=== PATIENT | male | born 1950 | race African-American/Black ===

== ENCOUNTER 2016-12-04 09:21 | Inpatient (IN) ==
[~2016-12-04 09:21] MED LIST: GLYCOPYRROLATE 0.4 MG/2 ML VIAL ONE; LIDOCAINE 2% 5 ML VIAL ONE; PHENYLEPHRINE 1 MG/10 ML SYRINGE IV ONE; PROPOFOL 200 MG/20 ML VIAL IV ONE; ROCURONIUM 100 MG/10 ML VIAL IV ONE; SEVOFLURANE 1 UNIT/15 MINUTE INH ONE
[2016-12-04] MEDS ORDERED: HYDROmorphone 2 MG/1 ML VIAL IV PRN ×2 (10:00→16:56)
[2016-12-04] MEDS ORDERED: ONDANSETRON 4 MG/2 ML VIAL IV STA (10:00)
[2016-12-04] MEDS ORDERED: VANCOMYCIN INJ 1,000 MG in SODIUM CHLORIDE 0.9% 250 ML IV STA (10:01)
--- NOTE | 2016-12-04 10:08 | Emergency Department Note ---
Anjel Wilkes Manpreet, am scribing for, and in the presence of, Joseph Leonard MD 10: 05. Aisha Wilkes James D, MD, personally performed the services described in this documentation, ascribed by Juan Jose Hobbs in my presence, and it is both accurate and complete . Arrival - Arrival Chief Complaint: Abdominal / Flank Pain Stated Complaint: abd pain ED Nursing Triage Note: Patient complains of abdominal pain and diarrhea. States that it began on sunday but has worsened. Paitent dialyzes on ,,and . Last dialysis was on 29 Nov 2016 Mode of Arrival: Stretcher Limitations: No Limitations Source: Patient - History of Present Illness HPI Narrative: Pt is a 66 y/o male, with PMHx of HTN, CHF, CVA, ESRF, and who presents to the ED with CC of Abd pain with diarrhea that began 12/01/16 but has worsened since. Pt's dialyses appointments are on MWF and last dialysis was on November 29, 2016. Pt states his diarrhea that began on 11/29/16 but has had no BM's today. Pt c/o fever but no N/V. Dr. Terrance Archuleta is the pt's methods and procedures analyst. No other pains/ complaints reported to the ED. Onset (ago): hour(s) Consistency: constant Severity: moderate Allergies/Adverse Reactions: Allergies Allergy/AdvReac Type Severity Reaction Status Date / Time aspirin Allergy Gastrointestinal Verified 05/16/16 00:54 Upset penicillin G Allergy RASH Verified 05/16/16 00:54 Home Medications: Home Medications Medication Instructions Recorded Confirmed Type Atenolol 50 mg PO DAILY 05/16/16 12/04/16 History Cinacalcet [Sensipar] 30 mg PO DAILY 05/16/16 12/04/16 History Diltiazem Cd Cap [Cardizem CD] 360 mg PO DAILY 05/16/16 12/04/16 History Finasteride 5 mg PO DAILY 05/16/16 12/04/16 History HYDROcodone/ACETAMIN 7.5-325 1 tablet PO Q6H PRN 05/16/16 12/04/16 History [[place] 7.5-325] Insulin Detemir [Levemir] 20 units SUBCUT DAILY 05/16/16 12/04/16 History Lovastatin 20 mg PO DAILY 05/16/16 12/04/16 History Nitroglycerin 0.4 mg/Hr Patch 1 patch TRANSDERM DAILY 05/16/16 12/04/16 History [Nitro-Dur 0.4 mg/hr Patch] Omeprazole 20 mg PO DAILY 05/16/16 12/04/16 History Temazepam [Restoril] 30 mg PO BEDTIME 05/16/16 12/04/16 History clonazePAM TAB [KlonoPIN] 0.5 mg PO BEDTIME 05/16/16 12/04/16 History Albuterol/Ipratropium Neb [Duoneb] 3 ml RESP TX RT Q4H 05/25/16 12/04/16 Rx Bisacodyl Tab [Dulcolax Tab] 10 mg PO DAILY PRN #0 tablet 05/25/16 12/04/16 Rx Ciprofloxacin Inj [Cipro Inj] 200 mg IV Q24H 05/25/16 12/04/16 Rx Heparin Inj 2,000 unit IV .FOR DIALYSIS vial 05/25/16 12/04/16 Rx Heparin Inj 5,000 unit SUBCUT Q8H vial 05/25/16 12/04/16 Rx Insulin Regular [HumuLIN R] See Protocol SUBCUT ACHS unit 05/25/16 12/04/16 Rx Ondansetron Inj [Zofran Inj] 4 mg IV Q4H PRN #0 vial 05/25/16 12/04/16 Rx Vancomycin Inj 1,000 mg IV .Non dialysis days PRN 05/25/16 12/04/16 Rx #0 vial Vancomycin Inj 1,500 mg IV WITH DIALYSIS PRN #0 05/25/16 12/04/16 Rx vial Review of System - Review of System 12 point system: reviewed and no additional remarkable complaints except as stated - Review of System Constitutional: Present: chills, fever. Absent: diaphoresis Respiratory: Absent: cough, respiratory distress, wheezing Cardiovascular: Absent: chest pain Gastrointestinal: Present: abdominal pain, diarrhea. Absent: nausea, vomiting, hematemesis Genitourinary male: Absent: dysuria Musculoskeletal: Absent: back pain, neck pain Neurological: Absent: headache, weakness, numbness, paresthesias Medical,Surgical,& Family Hx - Medical History Cardio: History of: CHF, Hypertension Neurology: History of: Cerebrovascular Accident No history of: Seizures Endocrine: History of: Diabetes Mellitus (IDDM) Respiratory: History of: COPD Renal: History of: Dialysis (M/W/F via left femoral TDC), Renal Failure, Renal Problems - Surgical History Cardiac Surgeries: Sugical HX of: Internal Defibrillator Neurologic Surgeries: Patient denies: Neurologic Surgery - Social History Smoking Status: Current every day smoker Exam Vital Signs: Vital Signs Temperature 100.1 F H 12/04/16 09:20 Pulse Rate 63 12/04/16 09:20 Respiratory Rate 18 12/04/16 09:20 Blood Pressure 160/84 12/04/16 09:20 O2 Sat by Pulse Oximetry 88 L 12/04/16 09:20 GENERAL: This is a chronically and acutely ill appearing black male in no apparent distress. VITAL SIGNS: Reviewed HEENT: Head is atraumatic and normocephalic. Pupils are equal round react to light. Extraocular movements are intact. Oropharynx is benign with moist mucous membranes. NECK: Neck is soft and supple without tenderness. There are no masses. There is no lymphadenopathy. LUNGS: Lungs are clear to auscultation. Chest rises symmetrically. There is no chest wall tenderness. CV: Heart is regular rate and rhythm without murmurs rubs or gallops. ABDOMEN: Abdomen is soft, minimal generalized tenderness to palpation without rebound or guarding. There are no abdominal abnormal masses palpated. There is no organomegaly. Bowel sounds are present and active. SKIN: Skin is warm and dry. No rash. EXTREMITIES: Patient has full range of motion without tenderness. There is no pedal edema. NEUROLOGIC: Awake, alert, oriented. Cranial nerves II through XII are grossly intact. Motor is 5 over 5 in all extremities bilaterally. Course Course Narrative: Patient was given IV vancomycin in the emergency department. - Consultations Consultation #1: Discussed with hospitalist. Patient will be admitted to their service. Time: 12:58 Results - Labs CBC & BMP: 12/04/16 10:30 12/04/16 10:30 Lab Results: I have reviewed the patients labs - Diagnostic Findings Procedure: Abdominal x-ray: image reviewed by me, Chest x-ray: image reviewed by me, CT Abdomen and Pelvis: image reviewed by me (Left iliac vein surrounding soft tissue stranding. Multiple pelvic and periaortic lymph nodes.) Disposition Clinical Impression: Fever, Generalized abdominal pain, End stage renal disease on dialysis, Diabetes mellitus, Essential hypertension, Obstructive sleep apnea Case discussed with: patient Disposition: Still a Patient Condition: Stable
[2016-12-04] MEDS ORDERED: HEPARIN LOCK FLUSH 500 UNIT/5 ML SYRINGE IV ONE (10:28)
[2016-12-04 10:40] LABS: Basophils % 0.2 % (0.0-0.8); Hematocrit 31.3 VOL% (42.0-52.0); Hemoglobin 10.4 GM/DL (14.0-18.0); Immature Granulocytes % 1.2 %; Immature Granulocytes Absolute 0.24 #; Lymphocytes # 1.4 10*3/uL (1.4-4.0); Lymphocytes % 6.7 % (21.2-54.2); Mean Corpuscular HGB Conc 33.2 GM/DL (32-36); Mean Corpuscular Hemoglobin 28 PG (27-34); Mean Corpuscular Volume 84.1 FL (87-102); Mean Platelet Volume 10.1 FL (9.6-12.0); Monocytes # 2.4 10*3/uL (0.11-0.8); Monocytes % 11.4 % (1.7-12.7); Neutrophils # 16.6 10*3/uL (1.4-7.4); Neutrophils % 80.5 % (38.7-73.9); Platelet Count 279 T/CUMM (130-400); Red Blood Count 3.72 MC/CUMM (3.8-5.5); Red Cell Distribution Width 19.2 % (9.3-17.3); White Blood Count 20.6 T/CUMM (4-12)
[2016-12-04 11:02] LABS: Calcium 8.3 MG/DL (8.5-10.1); Osmolality,Calculated 292.7 MOS/KG (273-304); Potassium 3.8 MMOL/L (3.5-5.1); Total Protein 8.4 G/DL (6.4-8.3)
[2016-12-04 11:07] LABS: Giant Platelets Few; Hypochromasia 1+; Microcytosis Slight; Platelet Estimate Adequate
[2016-12-04] MEDS ORDERED: ONDANSETRON 4 MG/2 ML VIAL ONE (11:13)
[2016-12-04] MEDS ORDERED: VANCOMYCIN 1,000 MG VIAL ONE (11:13)
--- NOTE | 2016-12-04 11:33 | CT Report ---
CT abdomen pelvis Indication: Abdominal pain Comparison: 18 May 2016 Technique: Axial CT imaging of the abdomen and pelvis is performed with intravenous contrast. Contrast dose is 100 cc of Omnipaque 350. No oral contrast was used Findings: Cardiac and lung bases are within normal limits. CT abdomen: The liver spleen pancreas and adrenal glands are normal in size and enhancement. No evidence of focal lesion is demonstrated in these solid organs. Gallbladder appears contracted. Multiple nonenhancing cyst are present in both kidneys, the largest is 2.4 cm in size. Otherwise the kidneys normal in size and enhancement. No evidence of hydronephrosis or nephrolithiasis is seen. The bowel caliber is normal and no wall thickening or adjacent inflammatory change is seen. No evidence of free fluid or free air is present. A few enlarged lymph nodes are present in the para-aortic location, largest is estimated 1.6 cm. These are increased since previous study. There are enlarged lymph nodes in the nawaf hepatis, similar to previous exam. Mixed lytic and sclerotic densities are present in the lumbar spine similar to previous. The largest sclerotic focus is and L4 measures [address] pelvis: Left femoral vein catheter is present and appears within normal limits for positioning. There is stranding around the left iliac vein and left external iliac artery. There is increased soft tissue density in the left pelvic sidewall, increased from previous exam. The borders are indistinct secondary to some of the stranding in the area of the largest is estimated 3.5 cm. There is increased density surrounding the right common femoral artery and multiple clips are present. There is suggestion of a small amount of calcification in this area as well. Multiple lytic and sclerotic densities are present in the sacrum and pelvis similar to previous. The pelvic bowel appears within normal limits. Bladder wall appears slightly thickened but not as prominent as previous exam. The prostate gland is enlarged with calcification similar to previous.. Impression: Left femoral vein catheter present with stranding around the left iliac vein and left iliac artery, could indicate thrombophlebitis and/or previous hemorrhage. There is increased soft tissue density in the left pelvic sidewall likely a combination multiple lymph nodes. There is also increasing lymph nodes in the para-aortic area. This CT exam was performed using one or more the following dose reduction techniques: Automated exposure control, adjustment of the MA and/or KV according to patient size, or use of iterative reconstruction technique. PROCEDURE INTERPRETED AT [facility] DEPARTMENT OF RADIOLOGY Final Report Signed by: Dr. Steve Santoro
--- NOTE | 2016-12-04 12:47 | XRay Report ---
History: Abdominal pain Date: 12/04/2016 Study: Flat and erect abdomen Comparison exam: No previous abdominal x-ray currently available There is no evidence of pneumoperitoneum. The bowel gas pattern is nonobstructive without gross mass lesion. A left femoral dialysis access catheter is positioned with its tip over the inferior vena cava. No definite radiopaque calculi are seen. There is mild lumbar spondylosis. There is mild osteoarthritis of the hips with mild joint space narrowing and osteophyte formation. Pacemaker leads are noted in the partially visualized lower chest. Impression: No acute abdominal process. Left common femoral dialysis access catheter PROCEDURE INTERPRETED AT [facility] DEPARTMENT OF RADIOLOGY Final Report Signed by: Dr. Nirali Myers
--- NOTE | 2016-12-04 12:47 | XRay Report ---
XR chest 1V portable Indication: Abdominal pain Comparison: 29 May 2016 Findings: The heart and mediastinum are stable in size and configuration. Pacemaker device is unchanged in position. The pulmonary vascularity is normal in caliber. Linear densities are present in both lungs similar to previous exam. No other lung infiltrates, effusions, pneumothorax or other abnormality is demonstrated. Impression: No acute findings or significant change. PROCEDURE INTERPRETED AT [facility] DEPARTMENT OF RADIOLOGY Final Report Signed by: Dr. Steve Santoro
[2016-12-04 13:07] LABS: INR 1.1; PT Patient Result 11.5 SECS; Partial Thromboplastin Time 32.3 SECS (0-40)
[2016-12-04 13:41] LABS: Apearance,Urine CLOUDY (Clear); Bilirubin,Urine Negative (Negative); Blood, Urine Large mg/dL (Negative); Glucose,Urine (UA) Negative (Negative); Ketones,Urine Negative (Negative); Mucus,Urine Occasional /LPF (Occasional); Nitrite,Urine Negative (Negative); Protein,Urine 100 MG/DL; Squamous Epithelial Cell,Urine Occasional /HPF (0-10); Urine Color Yellow (Yellow); Urine Specific Gravity 1.012 (1.001-1.035); Urine Urobilinogen < 2.0 EU/DL (0.2-1.0); WBC,Urine 17 /HPF (0-6)
--- NOTE | 2016-12-04 14:07 | Hospitalist History & Physical ---
Addendum entered and electronically signed by Hawa Loo NP 12/04/16 14:32: PCP: Dr Duke (Roberts) Renal: Dr Archuleta Original Note: Assessment and Plan - Time spent with patient Time spent with patient: Greater than 30 minutes (1) Fever Status: Acute Assessment and plan: 12/04/16 Admit to Hospital Services consult renal (chronic kidney disease on dialysis) MWF - missed Sunday Blood cultures collected in the ED Vancomycin started in ED - will continue antibiotics PRN pain management PRN zofran sliding scale and diabetes monitoring HA1c in the a.m repeat a.m. labs Will discuss with Dr Nagy for further recommendations with care. Current Visit: Yes (2) End stage renal disease on dialysis Status: Acute Assessment and plan: MWF dialysis (missed Sunday) Current Visit: Yes (3) Generalized abdominal pain Status: Acute Current Visit: Yes (4) ESRD (end stage renal disease) on dialysis Problem details: HD tomorrow. UF to EDW as tolerated by hemodynamics. Status: Chronic Current Visit: No (5) Diabetes mellitus Status: Acute Current Visit: Yes History of Present Illness Chief complaint: abdominal pain, diarrhea and shortness of breath History of present illness: Mr. Mcadams is a 66 year old black male w/PMHx of hypertension, diabetes, GERD presented to the ED via EMS for further evaluation of worsening abdominal pain and diarrhea since Sunday with increasing shortness of breath x2 days. He has a left groin dialysis catheter without redness at site or drainage noted. He reports last dialysis was Sunday on the 29 of November and missed dialysis on Sunday. He reports some nausea without vomiting and fever without notable chills. He is sleepy upon exam but easily awakened and answered all questions appropriately. IN ED: Abd XR: nothing acute. left common femoral dialysis catheter. CXR: nothing acute. Abd CT: Left femoral vein catheter present with stranding around the left iliac vein and left iliac artery, could indicate thrombophlebitis and/or previous hemorrhage. There is increased soft tissue density in the left pelvic sidewall likely a combination multiple lymph nodes. There is also increasing lymph nodes in the para-aortic area. LABS SIgnificant: WBC 20.6, H&H 10.4 & 31.3, Na 131, Angion gap 18.8, BUN 96, Creatinine 13.40, Glucose 125, Calcium 8.3. Urinalysis: leukocytes small, WBC 17. LACTIC acid is pending results. Was given a dose of Vancomycin in ER. Hospital Services consulted for admittance and further evaluation. After discussion with Dr Leonard in the ED and Dr Nagy with Hospital Services, it was agreed to admit patient. Home medications will be reviewed and reconciliation to follow. Home Medications Medication Instructions Recorded Confirmed Type Atenolol 50 mg PO DAILY 05/16/16 12/04/16 History Cinacalcet [Sensipar] 30 mg PO DAILY 05/16/16 12/04/16 History Diltiazem Cd Cap [Cardizem CD] 360 mg PO DAILY 05/16/16 12/04/16 History Finasteride 5 mg PO DAILY 05/16/16 12/04/16 History HYDROcodone/ACETAMIN 7.5-325 1 tablet PO Q6H PRN 05/16/16 12/04/16 History [[place] 7.5-325] Insulin Detemir [Levemir] 20 units SUBCUT DAILY 05/16/16 12/04/16 History Lovastatin 20 mg PO DAILY 05/16/16 12/04/16 History Nitroglycerin 0.4 mg/Hr Patch 1 patch TRANSDERM DAILY 05/16/16 12/04/16 History [Nitro-Dur 0.4 mg/hr Patch] Omeprazole 20 mg PO DAILY 05/16/16 12/04/16 History Temazepam [Restoril] 30 mg PO BEDTIME 05/16/16 12/04/16 History clonazePAM TAB [KlonoPIN] 0.5 mg PO BEDTIME 05/16/16 12/04/16 History Albuterol/Ipratropium Neb [Duoneb] 3 ml RESP TX RT Q4H 05/25/16 12/04/16 Rx Bisacodyl Tab [Dulcolax Tab] 10 mg PO DAILY PRN #0 tablet 05/25/16 12/04/16 Rx Ciprofloxacin Inj [Cipro Inj] 200 mg IV Q24H 05/25/16 12/04/16 Rx Heparin Inj 2,000 unit IV .FOR DIALYSIS vial 05/25/16 12/04/16 Rx Heparin Inj 5,000 unit SUBCUT Q8H vial 05/25/16 12/04/16 Rx Insulin Regular [HumuLIN R] See Protocol SUBCUT ACHS unit 05/25/16 12/04/16 Rx Ondansetron Inj [Zofran Inj] 4 mg IV Q4H PRN #0 vial 05/25/16 12/04/16 Rx Vancomycin Inj 1,000 mg IV .Non dialysis days PRN 05/25/16 12/04/16 Rx #0 vial Vancomycin Inj 1,500 mg IV WITH DIALYSIS PRN #0 05/25/16 12/04/16 Rx vial Allergies Allergy/AdvReac Type Severity Reaction Status Date / Time aspirin Allergy Gastrointestinal Verified 05/16/16 00:54 Upset penicillin G Allergy RASH Verified 05/16/16 00:54 Medical,Surgical,& Family Hx - Medical History Cardio: History of: CHF, Hypertension Neurology: History of: Cerebrovascular Accident No history of: Seizures Endocrine: History of: Diabetes Mellitus (IDDM) Respiratory: History of: COPD Renal: History of: Dialysis (M/W/F via left femoral TDC), Renal Failure, Renal Problems - Surgical History Cardiac Surgeries: Sugical HX of: Internal Defibrillator Neurologic Surgeries: Patient denies: Neurologic Surgery - Social History Smoking Status: Current every day smoker (3-4 cigarettes per day) Frequency of Alcohol Use: None Type of Drug Use: None Marital Status: Lives With:: Spouse ( and daughter) Functional capacity: uses cane/walker 12 point system: reviewed and no additional remarkable complaints except as stated - Constitutional Constitutional: Present: fever(s). Absent: chills - Cardiovascular Cardiovascular: Present: dyspnea. Absent: chest pain at rest, chest pain with activity - Respiratory Respiratory: Present: dyspnea - Gastrointestinal Gastrointestinal: Present: abdominal pain, diarrhea, nausea. Absent: vomiting Exam - Constitutional Vitals: Period Temp Pulse Resp BP Sys/Jalloh Pulse Ox Last 24 Hr 100.1 F-100.1 F 63-63 18-18 160-160/84-84 88 General appearance: no acute distress, over weight - Head Head exam: Present: normal inspection - Eye Eye exam: Present: EOMI Pupils: Present: CAMRON - Neck Neck exam: Present: normal inspection - Respiratory Respiratory exam: Present: clear to auscultation bilaterally. Absent: wheezes - Cardiovascular Cardiovascular exam: Present: regular rate and rhythm - GI/Abdominal GI/Abdominal exam: Present: normal bowel sounds, tenderness (mildly generalized tenderness), soft. Absent: rebound - Extremities Exam Extremities exam: Present: normal inspection, full ROM, edema (trace) - Neurological Exam Neurological exam: Present: alert, oriented X3 - Psychiatric Psychiatric exam: Present: normal affect, normal mood. Absent: agitated, anxious - Skin Skin exam: Present: normal color, warm, dry Results - Labs CBC & BMP: 12/04/16 10:30 12/04/16 10:30 Lab Results: I have reviewed the past 24 hour labs - Diagnostic Findings Procedure: Abdominal x-ray: report reviewed by me (no acute abdominal process), Chest x-ray: report reviewed by me (nothing acute), CT Abdomen and Pelvis: report reviewed by me, pending (left femoral vein catheter present with stranding around the left iliac vein and left iliac artery, could indicate thrombophlebitis and/or previous hemorrage. There is increased soft tissue density in the left pelvic sidewall likely a combination multiple lymph nodes.)
[2016-12-04] MEDS ORDERED: GLUCAGON 1 MG VIAL IM PRN (14:28)
[2016-12-04] MEDS ORDERED: DEXTROSE 50% 25 GM/50 ML SYRINGE IV PRN (14:28)
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
--- NOTE | 2016-12-04 16:10 | Dialysis Note ---
Dialysis Note - Dialysis Note Ms. Torri Mcadams is seen on hemodialysis. His tolerating it well with good catheter flow. Blood pressure stable.
[2016-12-04 16:45] LABS: Basophils # 0.1 10*3/uL (0.0-0.2); Basophils % 0.4 % (0.0-0.8); Eosinophils % 0.1 % (0.00-10.9); Hematocrit 31.4 VOL% (42.0-52.0); Hemoglobin 10.3 GM/DL (14.0-18.0); Lymphocytes # 1.2 10*3/uL (1.4-4.0); Lymphocytes % 6.1 % (21.2-54.2); Mean Corpuscular HGB Conc 32.8 GM/DL (32-36); Mean Corpuscular Hemoglobin 28 PG (27-34); Mean Corpuscular Volume 83.7 FL (87-102); Mean Platelet Volume 10.1 FL (9.6-12.0); Monocytes # 1.6 10*3/uL (0.11-0.8); Monocytes % 8.3 % (1.7-12.7); Neutrophils # 16.3 10*3/uL (1.4-7.4); Neutrophils % 84.1 % (38.7-73.9); Platelet Count 298 T/CUMM (130-400); Red Blood Count 3.75 MC/CUMM (3.8-5.5); Red Cell Distribution Width 19.1 % (9.3-17.3); White Blood Count 19.4 T/CUMM (4-12)
[2016-12-04] MEDS ORDERED: GENTAMICIN INJ 80 MG in PREMIX 1 EACH IV ONE (19:30)
[2016-12-04] MEDS ORDERED: VANCOMYCIN INJ 1,500 MG in SODIUM CHLORIDE 0.9% 500 ML IV ONE (20:00)
[2016-12-04] MEDS: ALBUTEROL/IPRATROPIUM 3 ML NEB RESP TX SCH (20:30)
[2016-12-04] MEDS: INSULIN LISPRO 100 UNIT/ML SUBCUT SCH ×2 (20:55→22:44)
[2016-12-04] MEDS: clonazePAM 0.5 MG TABLET PO SCH (21:18)
[2016-12-04] MEDS: HEPARIN 5,000 UNIT/1 ML VIAL SUBCUT SCH (22:44)
[2016-12-04] MEDS: ATENOLOL 50 MG TABLET PO SCH (22:45)
[2016-12-04] MEDS: CINACALCET 30 MG TABLET PO SCH (22:45)
[2016-12-05] MEDS: ALBUTEROL/IPRATROPIUM 3 ML NEB RESP TX SCH ×7 (00:11→23:10)
[2016-12-05] MEDS: HEPARIN 5,000 UNIT/1 ML VIAL SUBCUT SCH ×3 (01:36→16:58)
[2016-12-05 07:26] LABS: Basophils # 0.1 10*3/uL (0.0-0.2); Basophils % 0.5 % (0.0-0.8); Eosinophils # 0.1 10*3/uL (0.0-0.87); Eosinophils % 0.2 % (0.00-10.9); Hematocrit 30.5 VOL% (42.0-52.0); Hemoglobin 9.9 GM/DL (14.0-18.0); Immature Granulocytes % 1.2 %; Immature Granulocytes Absolute 0.24 #; Lymphocytes # 1.4 10*3/uL (1.4-4.0); Lymphocytes % 6.6 % (21.2-54.2); Mean Corpuscular HGB Conc 32.5 GM/DL (32-36); Mean Corpuscular Hemoglobin 28 PG (27-34); Mean Corpuscular Volume 84.7 FL (87-102); Mean Platelet Volume 10.8 FL (9.6-12.0); Monocytes # 2.9 10*3/uL (0.11-0.8); Monocytes % 13.8 % (1.7-12.7); Neutrophils # 16.2 10*3/uL (1.4-7.4); Neutrophils % 77.7 % (38.7-73.9); Platelet Count 283 T/CUMM (130-400); Red Cell Distribution Width 19.3 % (9.3-17.3); White Blood Count 20.8 T/CUMM (4-12)
--- NOTE | 2016-12-05 07:26 | Nephrology Progress Note ---
Nephrology - PN: Subj Interval history: Patient is feeling better this morning. He denies shortness of breath. Review of systems GI he denies nausea or vomiting, -the patient had dialysis yesterday Physical exam general the patient chronically ill-appearing, he has no pitting edema, his right groin catheter has some mild tenderness to palpation but no surrounding inflammation Assessment/plan 1. End-stage renal disease-patient dialyzed yesterday 2. Febrile illness-this patient has a elevated white count, on CT exam of his abdomen he had note of some changes around his left groin catheter and today he is complaining of pain shooting through this area, I will talk to surgery about removing the catheter today we can plan on putting a catheter in in a few days for dialysis 3. Gastroenteritis-patient started having some nausea and vomiting a few days ago I am not sure if this was related to his possible catheter infection or gastroenteritis independent of this. 4. Hypertension is controlled 5. Diabetes mellitus this is controlled Exam (PN)-Nephrology - Vital Signs Vital signs: Period Temp Pulse Resp BP Sys/Jalloh Pulse Ox Last 24 Hr 97.8 F-100.1 F 61-84 16-20 123-160/68-106 88-100 - Lab 12/04/16 16:31 12/04/16 10:30 Most recent lab results Calcium 8.3 MG/DL (8.5-10.1) L 12/04/16 10:30 Assessment and Plan (1) End stage renal disease on dialysis Status: Acute Assessment and plan: We will plan on dialyzing the patient this Sunday Current Visit: Yes (2) Nausea and vomiting Status: Acute Assessment and plan: This patient may have some gastro-enteritis related to food poisoning or this could be a reaction to a more substantial infection possibly related to the left groin catheter. Current Visit: Yes (3) Diabetes mellitus Status: Acute Current Visit: Yes (4) Essential hypertension Status: Acute Current Visit: Yes (5) Fever Status: Acute Assessment and plan: Patient has elevated white blood cell count, he is having some low-grade fever and a CT scan of his abdomen shows some changes associated with his left groin catheter, we may need to remove this catheter after his dialysis tomorrow and replace it with another catheter a few days later. I will ask general surgery to see him in consultation. I agree with IV antibiotics. Current Visit: Yes (6) Generalized abdominal pain Status: Acute Current Visit: Yes (7) Leukocytosis Status: Acute Current Visit: No
[2016-12-05 07:58] LABS: Calcium 8.3 MG/DL (8.5-10.1); Osmolality,Calculated 284.4 MOS/KG (273-304)
[2016-12-05 08:02] LABS: Band Neutrophils 1 % (0-10); Giant Platelets Few; Hypochromasia 1+; Lymphocytes 13 % (20-55); Microcytosis Slight; Platelet Estimate Adequate; Segmented Neutrophils 77 % (50-85); Total Cells Counted 100
[2016-12-05] MEDS ORDERED: LIDOCAINE 1% 20 ML VIAL MISC INJ ONE (08:37)
--- NOTE | 2016-12-05 09:11 | XRay Report ---
XR chest 1V portable Indication: Shortness of breath Comparison: 04 December 2016 Findings: The heart and mediastinum are stable in size and configuration. Pacemaker device is unchanged in position. The pulmonary vascularity is increased with bilateral increased interstitial lung density. No other lung infiltrates, effusions, pneumothorax or other abnormality is demonstrated. Impression: Findings suggest cardiac decompensation. PROCEDURE INTERPRETED AT [facility] DEPARTMENT OF RADIOLOGY Final Report Signed by: Dr. Steve Santoro
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
--- NOTE | 2016-12-05 09:18 | Operative Note ---
Date of procedure: 12/05/16 Pre-op diagnosis: Infected hemodialysis catheter suspicion Post-op diagnosis: same Procedure: Pre-operative diagnosis Infected hemodialysis catheter, suspected Post-operative diagnosis same Procedures Performed Removal of tunneled hemodialysis catheter Findings Complete catheter removal with purulent drainage from the catheter tract Complications None apparent Indications Possible infected hemodialysis catheter Description of procedure The patient was placed in the supine position in his hospital bed and the catheter and left groin and thigh was prepped with Betadine. Timeout was called. Local anesthetic was administered around the catheter and an elliptical skin incision was made with a scalpel. The catheter was freed up the subcutaneous tissues and the cuff was . There is good incorporation with no clot but there was purulent drainage around the catheter when it was removed. The catheter was completely removed intact and the catheter site was left open to heal by secondary intention. The pressure was held over the neck site until bleeding stopped. The patient was left in his hospital bed. Catheter tip was sent for culture Postoperative plan Patient will need a new dialysis catheter later this week Anesthesia: local Surgeon / Physician: Marcell Car Estimated blood loss: minimal Specimens: other (catheter tip) Condition: stable Disposition: no change Results - Labs CBC & BMP: 12/05/16 05:02 12/05/16 05:02 Discharge Plan - Discharge Medications No Action Omeprazole 20 mg PO DAILY Nitroglycerin 0.4 mg/Hr Patch [Nitro-Dur 0.4 mg/hr Patch] 1 patch TRANSDERM DAILY Cinacalcet [Sensipar] 30 mg PO DAILY Insulin Detemir [Levemir] 20 units SUBCUT DAILY Finasteride 5 mg PO DAILY clonazePAM TAB [KlonoPIN] 0.5 mg PO BEDTIME Atenolol 50 mg PO DAILY Bisacodyl Tab [Dulcolax Tab] 10 mg PO DAILY PRN #0 tablet PRN Reason: Constipation Ondansetron Inj [Zofran Inj] 4 mg IV Q4H PRN #0 vial PRN Reason: Nausea HYDROcodone/ACETAMIN 7.5-325 [[place] 7.5-325] 1 tablet PO Q6H PRN PRN Reason: Pain Temazepam [Restoril] 30 mg PO BEDTIME Lovastatin 20 mg PO DAILY Diltiazem Cd Cap [Cardizem CD] 360 mg PO DAILY Albuterol/Ipratropium Neb [Duoneb] 3 ml RESP TX RT Q4H Ciprofloxacin Inj [Cipro Inj] 200 mg IV Q24H Heparin Inj 5,000 unit SUBCUT Q8H vial Heparin Inj 2,000 unit IV .FOR DIALYSIS vial Insulin Regular [HumuLIN R] See Protocol SUBCUT ACHS unit Vancomycin Inj 1,000 mg IV .Non dialysis days PRN #0 vial PRN Reason: Level <15 on non dialysis days Vancomycin Inj 1,500 mg IV WITH DIALYSIS PRN #0 vial PRN Reason: Level <20 on dialysis days - Follow Up or Referral - Forms/Instructions
[2016-12-05] MEDS: FINASTERIDE 5 MG TABLET PO SCH (09:40)
[2016-12-05] MEDS: INSULIN LISPRO 100 UNIT/ML SUBCUT SCH ×4 (09:40→21:04)
[2016-12-05] MEDS: ATENOLOL 50 MG TABLET PO SCH (09:40)
[2016-12-05] MEDS: CINACALCET 30 MG TABLET PO SCH (09:40)
[2016-12-05] MEDS: DILTIAZEM CD 180 MG CAPSULE PO SCH (09:40)
[2016-12-05] MEDS: NITROGLYCERIN 0.4 MG/HR PATCH TRANSDERM SCH (09:40)
[2016-12-05] MEDS: ACETAMINOPHEN 325 MG TABLET PO PRN ×2 (11:46→22:15)
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
--- NOTE | 2016-12-05 16:54 | Hospitalist Progress Note ---
Hospitalist: Subjective Interval history: Patient is feeling better this morning. Left groin infected hemodialysis catheter was removed 12/05. Blood cultures are growing staph Exam - Constitutional Vitals: Period Temp Pulse Resp BP Sys/Jalloh Pulse Ox Last 24 Hr 97.8 F-102.7 F 60-88 16-20 123-155/55-90 83-100 Exam: General: [No Acute Distress] HEENT: [Normocephalic, atraumatic, Extra ocular movements intact] Neck: [Supple, No JVD] Chest: [Clear to auscultation B/L] CV: [S1 + S2 audible without murmur, gallop or rub] Abd: [soft, NT, Non-distended, BS +] Ext: [No edema] Skin: [Right inguinal area small wound] Rheumatologic: [No Joint deformities] Neurologic: [Awake and alert] Results - Labs CBC & BMP: 12/05/16 05:02 12/05/16 05:02 - Impressions Assessment and Plan: MRSA sepsis Status: Acute Assessment and plan: Source appears to be the left femoral hemodialysis catheter which has been removed 12/05. He would need IV Vanco for several weeks. Appreciate ID following. Current Visit: Yes Chronic right groin wound Status: Acute Assessment and plan: Patient had an infected graft removed by Dr. Hoover several months ago. Patient will continue to follow with Dr. Hoover as an outpatient Current Visit: Yes Nausea and vomiting Status: Acute Assessment and plan: This seems to be related to his current infection, this has improved Current Visit: Yes ESRD on HD Status: Chronic current Visit: Yes Essential hypertension Status: Acute Current Visit: Yes Diabetes mellitus Status: Acute Current Visit: Yes
--- NOTE | 2016-12-05 16:54 | ECHO Report ---
Malena Mcadams 12/05/2016 Exam Date: 15:12 Referring Physician: jimenez Moody Technologist: WENDY ROWE Age: 66 Ht (in): 68 Wt (lb): 225 MExam Location: [facility] Gender: Echo [id number]: Essential (primary) hypertension, EnIndications: stage renal disease, Sepsis, Fever, MRSA, DM, RT. groin wound S/P catheter removal BP: 135 / 73 HR: 60 SinusRhythm: FairTechnical Quality: IMPRESSIONS Normal left ventricular cavity size. Moderate to severe left ventricular hypertrophy. Left ventricular ejection fraction is estimated at 60 %. The right ventricle is normal in size and function. The right atrium is normal in size. The left atrium is mildly enlarged. Morphologically normal mitral valve. No mitral valve stenosis. Trace mitral valve regurgitation. Morphologically normal aortic valve without significant sclerosis or stenosis. There is no aortic regurgitation. Morphologically normal tricuspid valve. [id number] tricuspid valve regurgitation. Tricuspid regurgitation velocities suggest a PAP of 65 mmHg. Morphologically normal pulmonic valve without significant stenosis. There is no pulmonic regurgitation. Normal pericardium without effusion. Normal ascending aorta dimension. MEASUREMENTS (Male / Female) Normal Values 2D ECHO LV Diastolic Diameter PLAX 4.4 cm 4.2 - 5.9 / 3.9 - 5.3 cm LV Systolic Diameter PLAX 2.8 cm LV Fractional Shortening PLAX 37.3 % IVS Diastolic Thickness 2.1 cm 0.6 - 1.0 / 0.6 - 0.9 cm LVPW Diastolic Thickness 2.0 cm 0.6 - 1.0 / 0.6 - 0.9 cm RV Internal Dim ED PLAX 3.8 cm Aortic Root Diameter 3.8 cm LA Systolic Diameter LX 4.2 cm 3.0 - 4.0 / 2.7 - 3.8 cm DOPPLER TR Peak Velocity 372.0 cm/s TR Peak Gradient 55.4 mmHg FINDINGS Left Ventricle Normal left ventricular cavity size. Moderate to severe left ventricular hypertrophy. Left ventricular ejection fraction is estimated at 60 %. Right Ventricle The right ventricle is normal in size and function. Right Atrium The right atrium is normal in size. Left Atrium The left atrium is mildly enlarged. Mitral Valve Morphologically normal mitral valve. No mitral valve stenosis. Trace mitral valve regurgitation. Aortic Valve Morphologically normal aortic valve without significant sclerosis or stenosis. There is no aortic regurgitation. Tricuspid Valve Morphologically normal tricuspid valve. Chpe-[id number] tricuspid valve regurgitation. Tricuspid regurgitation velocities suggest a PAP of 65 mmHg. Pulmonic Valve Morphologically normal pulmonic valve without significant stenosis. There is no pulmonic regurgitation. Pericardium Normal pericardium without effusion. Aorta Normal ascending aorta dimension. Ranjit Peterson MD (Electronically Signed) 05 December 2016 Final Date: 16:52
[2016-12-05] MEDS: clonazePAM 0.5 MG TABLET PO SCH (21:04)
[2016-12-06] MEDS: HEPARIN 5,000 UNIT/1 ML VIAL SUBCUT SCH ×3 (01:50→17:08)
[2016-12-06] MEDS: ALBUTEROL/IPRATROPIUM 3 ML NEB RESP TX SCH ×6 (03:10→23:55)
--- NOTE | 2016-12-06 07:44 | XRay Report ---
Portable chest Exam date: 12/06/2016 4:00 AM Indication: Shortness of breath, cough Comparison: Previous day at 0522 hours Findings: Cardiomediastinal contours are stable with no change in pacemaker placement. Mild central interstitial prominence again noted with focal thickening along the right minor fissure. No acute osseous abnormalities. Visualized upper abdomen demonstrates no acute pathology. Impression: No change in the central interstitial opacities, atelectasis versus mild edema PROCEDURE INTERPRETED AT [facility] DEPARTMENT OF RADIOLOGY Final Report Signed by: Mulugeta Cornejo
--- NOTE | 2016-12-06 07:51 | Nephrology Progress Note ---
Nephrology - PN: Subj Interval history: Patient continues to complain of some left leg pain. Review of systems: General -the patient feels better overall, he denies fever chills Physical exam general the patient in no acute distress Assessment/plan 1. Bacteremia-this patient had multiple blood cultures growing out MRSA will continue vancomycin 2. End-stage renal disease-we will remove this patient's catheter will plan on replacing it or Sunday and resuming dialysis 3. Hypertension we will continue his present antihypertensives 4. Diabetes mellitus this is controlled Exam (PN)-Nephrology - Vital Signs Vital signs: Period Temp Pulse Resp BP Sys/Jalloh Pulse Ox Last 24 Hr 97.2 F-102.7 F 59-88 16-20 95-155/48-90 83-98 - Lab 12/05/16 05:02 12/05/16 05:02 Most recent lab results Calcium 8.3 MG/DL (8.5-10.1) L 12/05/16 05:02 Assessment and Plan (1) End stage renal disease on dialysis Status: Acute Assessment and plan: We will plan on dialyzing the patient this Sunday Current Visit: Yes (2) Nausea and vomiting Status: Acute Assessment and plan: This patient may have some gastro-enteritis related to food poisoning or this could be a reaction to a more substantial infection possibly related to the left groin catheter. Current Visit: Yes (3) Diabetes mellitus Status: Acute Current Visit: Yes (4) Essential hypertension Status: Acute Current Visit: Yes (5) Fever Status: Acute Assessment and plan: Patient has elevated white blood cell count, he is having some low-grade fever and a CT scan of his abdomen shows some changes associated with his left groin catheter, we may need to remove this catheter after his dialysis tomorrow and replace it with another catheter a few days later. I will ask general surgery to see him in consultation. I agree with IV antibiotics. Current Visit: Yes (6) Generalized abdominal pain Status: Acute Current Visit: Yes (7) Leukocytosis Status: Acute Current Visit: No
[2016-12-06] MEDS: INSULIN LISPRO 100 UNIT/ML SUBCUT SCH ×4 (07:57→20:33)
[2016-12-06] MEDS: CINACALCET 30 MG TABLET PO SCH (09:07)
[2016-12-06] MEDS: DILTIAZEM CD 180 MG CAPSULE PO SCH (09:08)
[2016-12-06] MEDS: FINASTERIDE 5 MG TABLET PO SCH (09:09)
[2016-12-06] MEDS: ATENOLOL 50 MG TABLET PO SCH (09:09)
[2016-12-06] MEDS: NITROGLYCERIN 0.4 MG/HR PATCH TRANSDERM SCH (10:07)
--- NOTE | 2016-12-06 12:51 | Infectious Disease Progress ---
Assessment and Plan (1) MRSA (methicillin resistant Staphylococcus aureus) septicemia Status: Acute Assessment and plan: Source of the septicemia is the left femoral dialysis catheter which had emilie pus around it. It seems there is likely endovascular infection associated with this dialysis catheter [based on CT findings] which has now been removed. TTE negative for endocarditis but patient's body habitus precludes high-quality study. Recommend agents: 1. Consult cardiology for JG 2. Continue with vancomycin with goal trough level of 20-25. Discussed dosing with clinical pharmacy. 3. Repeat blood cultures today 4. Follow-up on cultures from right groin wound Current Visit: Yes (2) Diabetes mellitus Status: Acute Current Visit: Yes (3) End stage renal disease on dialysis Status: Acute Current Visit: Yes (4) Essential hypertension Status: Acute Current Visit: Yes (5) Fever Status: Acute Assessment and plan: This is due to the MRSA septicemia from infected dialysis catheter. Vancomycin therapy as noted above. Current Visit: Yes (6) Hemodialysis catheter infection Status: Acute Assessment and plan: Due to MRSA, now removed. 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 Recommendations: Follow-up results of culture to see if there is something else other than MRSA Current Visit: Yes Infectious Disease - PN: Subj Interval history: Patient feeling relatively okay. No fever since about midday yesterday. Left groin dialysis catheter is out. Less drainage from right groin wound today. Patient feels a bit tired but no other complaints, no nausea vomiting or diarrhea. No cough or shortness of breath. Denies back pain or any other acute pains. Infectious Disease Exam (PN) - Constitutional Vitals: Temp Pulse Resp BP Pulse Ox 98.2 F 63 18 154/79 89 L 12/06/16 12:00 12/06/16 12:00 12/06/16 12:00 12/06/16 12:00 12/06/16 12:00 General appearance: no acute distress, over weight Exam: General appearance: no acute distress - Eye Eye exam: Present: EOMI. no icterus Pupils: Present: CAMRON - ENT ENT exam: no oral exudates - Respiratory Respiratory exam: vesicular BS, no crepitations or wheezes - Cardiovascular Cardiovascular exam: regular rate and rhythm, no murmurs - GI/Abdominal GI/Abdominal exam: normal bowel sounds, soft, non-tender, no organomegaly or mass - Extremities Exam Extremities exam: no edema, serous fluid oozing from left groin wound with hemodialysis catheter was removed; right groin wound not draining today - Skin Skin exam: no rash Results - Labs CBC & BMP: 12/05/16 05:02 12/05/16 05:02 Lab Results: I have reviewed the past 24 hour labs (Catheter tip culture positive for gram-positive cocci)
--- NOTE | 2016-12-06 14:10 | Ultrasound Report ---
US venous mapping LT Indication: Evaluation for potential dialysis access options. Patient has a infected right groin at site of previous AV graft, and 2 days ago had a left groin dialysis catheter removed after approximately 5 months for line infection. Line holiday planned. Previous attempts at establishing catheter access in the jugular region unsuccessful at outside facility. Superficial ultrasound neck and left groin: Cornejo scale and color Doppler ultrasound evaluation of the venous structures on both sides of the neck and the left groin were performed by me personally. 2 captured images were obtained. The right internal jugular vein is occluded and the left internal jugular vein is 80% occluded with thrombosis. The right subclavian vein and the left subclavian veins appear widely patent, but could not be followed distally into the mediastinum due to overlying structures. Evaluation over the left groin shows occlusion of the left common femoral vein with small superficial collaterals present. No abnormal fluid collections are seen although mild left groin lymphadenopathy is present. Impression: Possible dialysis access options exist via the subclavian veins on both sides, as well as possibly the left internal jugular vein. No dialysis access options the left groin. Plan preprocedure venogram of the left jugular system and both subclavian veins after a "line holiday" to resolve positive blood cultures. At the time of the venogram, plan on attempting dialysis catheter placement via upper chest, and if not possible, translumbar access. PROCEDURE INTERPRETED AT [facility] DEPARTMENT OF RADIOLOGY Final Report Signed by: Evaristo Lockwood M.D.
[2016-12-06] MEDS ORDERED: VANCOMYCIN INJ 750 MG in SODIUM CHLORIDE 0.9% 250 ML IV ONE (15:00)
--- NOTE | 2016-12-06 17:10 | Hospitalist Progress Note ---
Hospitalist: Subjective Interval history: Patient feeling better today. He was admitted with MRSA sepsis. Exam - Constitutional Vitals: Period Temp Pulse Resp BP Sys/Jalloh Pulse Ox Last 24 Hr 97.1 F-98.7 F 59-85 16-20 95-154/48-79 86-98 Exam: General: [No Acute Distress] HEENT: [Normocephalic, atraumatic, Extra ocular movements intact] Neck: [Supple, No JVD] Chest: [Clear to auscultation B/L] CV: [S1 + S2 audible without murmur, gallop or rub] Abd: [soft, NT, Non-distended, BS +] Ext: [No edema] Skin: [Right inguinal area small wound] Rheumatologic: [No Joint deformities] Neurologic: [Awake and alert] Results - Labs CBC & BMP: 12/05/16 05:02 12/05/16 05:02 - Impressions Assessment and Plan: MRSA sepsis Status: Acute Assessment and plan: Source appears to be the left femoral hemodialysis catheter which has been removed 12/05. He would need IV Vanco for several weeks. 2D echo was unremarkable .appreciate ID following. Current Visit: Yes Chronic right groin wound Status: Acute Assessment and plan: Patient had an infected graft removed by Dr. Hoover several months ago. Patient will continue to follow with Dr. Hoover as an outpatient Current Visit: Yes Nausea and vomiting Status: Acute Assessment and plan: This seems to be related to his current infection, this has improved Current Visit: Yes ESRD on HD Status: Chronic current Visit: Yes Essential hypertension Status: Acute Current Visit: Yes Diabetes mellitus Status: Acute Current Visit: Yes
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
[2016-12-06] MEDS ORDERED: VANCOMYCIN INJ 750 MG in SODIUM CHLORIDE 0.9% 250 ML IV PRN (19:00)
[2016-12-06] MEDS: clonazePAM 0.5 MG TABLET PO SCH (20:30)
[2016-12-07] MEDS: HEPARIN 5,000 UNIT/1 ML VIAL SUBCUT SCH ×3 (01:42→17:06)
[2016-12-07] MEDS: ALBUTEROL/IPRATROPIUM 3 ML NEB RESP TX SCH ×5 (03:16→19:02)
--- NOTE | 2016-12-07 07:54 | History and Physical Update ---
Sedation H&P Update - History and Physical H&P was reviewed, the patient examined and there: are no changes in the patients condition since last H&P was completed. - Dictation Physical: refer to H&P completed by admitting physician - Physical Exam Mental Status: alert and oriented Heart: regular rate and rhythm Lung: clear to auscultation Abdomen: within normal limits Vitals: within normal limits - Sedation Plan for Sedation: MAC Patient Consent: Procedure disscussed with patient and patinet has consented., Risks and benefits were discussed with patient,including infection,, bleeding, injury to surrounding structures, seizure, temporary nerve, Patient understands and accepts potential risks/benefits and agrees to ASA Class: IV Airway Assessment: Class III: Soft palate, base of uvula visible
--- NOTE | 2016-12-07 08:46 | EKG Report ---
Stationary ECG Study [facility] Test Date: 12/07/2016 7:45:54 AM Pat Name: KATYA UNDERWOOD Department: Room: 543 Gender: M Doll Repairer: GABRIELLA : 1950 Requested by: Prabhjot Teixeira Order Number: [id number] Reading MD: TALHA FUENTES Intervals [place] Rate: 60 P: -77 ND: 181 QRS: 126 QRSD: 185 T: 32 QT: 502 QTc: 502 Interpretive Statements ELECTRONIC ATRIAL PACEMAKER ELECTRONIC VENTRICULAR PACEMAKER ABNORMAL RHYTHM ECG Electronically Signed On 12-07-16 10:39:49 CDT by TALHA FUENTES [email or web address]
[2016-12-07] MEDS: INSULIN LISPRO 100 UNIT/ML SUBCUT SCH ×4 (09:10→21:33)
--- NOTE | 2016-12-07 09:16 | XRay Report ---
XR chest 1V portable Indication: Shortness of breath Comparison: 06 December 2016 Findings: The heart and mediastinum are stable in size and configuration. Pacemaker device is unchanged in position. The pulmonary vascularity is normal in caliber. Small amounts of bilateral pulmonary density are present, similar to previous exam. No other lung infiltrates, effusions, pneumothorax or other abnormality is demonstrated. Impression: No significant changes. PROCEDURE INTERPRETED AT [facility] DEPARTMENT OF RADIOLOGY Final Report Signed by: Dr. Steve Santoro
--- NOTE | 2016-12-07 09:46 | Cardiology Progress Note ---
Assessment and Plan (1) Sepsis Problem details: GNRs -> proteus, most likely source of his sepsis. Improved on cipro. Status: Acute Assessment and plan: 66-year-old black male, MRSA sepsis, infected hemodialysis line, which was removed, groin abscess, dual-chamber pacemaker, end-stage renal disease on hemodialysis, hypertension, insulin-dependent diabetes mellitus, hyperlipidemia. 12/07: JG - no IE -JG confirmed no endocardial vegetations. High-risk infection for intracardiac involvement. Pacemaker interrogation confirmed that he is pacemaker dependent, has atrial standstill, with 2-1 AV block with A pacing, underlying ventricular escape 40 bpm. Recommend to continue high intensity antibiotic therapy, per ID, he remains at risk for endocarditis. -Multivessel DVT. This was even limiting placement of another dialysis line. Consider starting full anticoagulation. I will defer this to the renal team. -I will sign off, please call with further questions Current Visit: No (2) Pacemaker Status: Acute Current Visit: Yes (3) ESRD (end stage renal disease) on dialysis Problem details: HD tomorrow. UF to EDW as tolerated by hemodynamics. Status: Chronic Current Visit: No (4) Hemodialysis catheter infection Status: Acute Current Visit: No Qualifiers: Encounter type: initial encounter Qualified Code(s): T82.7XXA - Infection and inflammatory reaction due to other cardiac and vascular devices, implants and grafts, initial encounter (5) Anemia in chronic kidney disease Status: Chronic Current Visit: No (6) Insulin dependent diabetes mellitus Status: Chronic Current Visit: No (7) Hemodialysis catheter infection Status: Acute Current Visit: No (8) MRSA (methicillin resistant Staphylococcus aureus) septicemia Status: Acute Current Visit: Yes Cardiology - PN: Subj Interval history: JG showed no endocarditis. He woke up uneventfully. Exam (Progress Note) - Constitutional Vitals: Period Temp Pulse Resp BP Sys/Jalloh Pulse Ox Last 24 Hr 97.7 F-100.0 F 59-82 18-20 104-154/56-79 86-100 General appearance: no acute distress, morbidly obese - Head Head exam: Present: normal inspection. Absent: contusion - Eye Eye exam: Absent: conjunctival injection, scleral icterus Pupils: Absent: dilated - ENT ENT exam: Present: normal external ear exam - Neck Neck exam: Present: normal inspection - Respiratory Respiratory exam: Present: decreased breath sounds. Absent: chest wall tenderness - Cardiovascular Cardiovascular exam: Present: regular rate and rhythm, systolic murmur. Absent : JVD - GI/Abdominal GI/Abdominal exam: Present: normal bowel sounds. Absent: distended - Extremities Exam Extremities exam: Present: normal inspection, edema (1+) - Neurological Exam Neurological exam: Present: alert, oriented X3 - Psychiatric Psychiatric exam: Present: normal affect, normal mood - Skin Skin exam: Present: normal color, warm. Absent: cyanosis Result/EKG - Labs CBC & BMP: 12/05/16 05:02 12/05/16 05:02 Lab Results: I have reviewed the past 24 hour labs Labs: Laboratory Results - last 24 hr 12/06/16 12/06/16 12/06/16 12:31 13:09 16:01 POC Glucose 173 H 116 H Random Vancomycin 18.2 12/06/16 12/07/16 12/07/16 19:27 06:48 08:27 POC Glucose 101 138 H 138 H Random Vancomycin
--- NOTE | 2016-12-07 09:54 | Anesthesia Post-Op ---
Anesthesia Post OP - Post Ansesthetic Evaluation Patient seen in post op: Yes Resp: within normal limits CV: within normal limits Mental: within normal limits Temp: within normal limits [id number]: within normal limits Nausea and Vomiting: within normal limits Pain: within normal limits
[2016-12-07] MEDS ORDERED: PROPOFOL 200 MG/20 ML VIAL IV ONE (09:55)
[2016-12-07] MEDS ORDERED: ETOMIDATE 20 MG/10 ML VIAL IV ONE (09:55)
--- NOTE | 2016-12-07 10:04 | ECHO Report ---
Malena Mcadams Exam Date: 12/07/2016 08:20 Referring Physician: Technologist: jimenez MoodyS, RVT Age: 66 Ht (in): 68 Wt (lb): 231 Gender: M Exam Location: [facility] Echo Pre-op Dx: Bacteremia, MRSA, Evaluate for endocarditis Post-op Dx: BP: 135 / 63 HR: 65 Rhythm: Sinus Technical Quality: Specimens Taken Devices Implanted Medications Complications Estimated Blood Loss Proc. Components IMPRESSIONS The left ventricle is normal in size, with mild concentric hypertrophy. Normal systolic function. Mild left atrial enlargement. Mild mitral valve insufficiency. Moderate tricuspid valve insufficiency. Moderate pulmonary hypertension. No intracardiac vegetations or thrombi. Dual-chamber pacemaker in place. MEASUREMENTS (Male / Female) Normal Values FINDINGS Left Ventricle The left ventricle is normal in size, with mild concentric hypertrophy. Normal systolic function. Right Ventricle The right ventricle is normal in size, with normal systolic function. Pacemaker wire in the right ventricle, without vegetations. Right Atrium The right atrium is normal in size, pacemaker when the right atrium, without vegetations. Left Atrium The left atrium is mildly dilated. LA Appendage The left atrial appendage is normal in size, no thrombi. IA Septum The interatrial septum is normal. Mitral Valve The mitral valve is structurally normal, mild insufficiency, no vegetations. Aortic Valve Aortic valve is structurally normal, no stenosis or insufficiency. Tricuspid Valve Tricuspid valve is structurally normal, moderate insufficiency, no stenosis. No vegetations. Estimated pulmonary artery systolic pressure 59 mmHg plus right atrial pressure. Pulmonic Valve Structurally normal pulmonic valve, no stenosis, trace insufficiency Pericardium No pericardial effusion. Aorta The descending aorta is of normal size. Prabhjot Teixeira (Electronically Signed) Final Date: 07 December 2016 10:03
[2016-12-07] MEDS ORDERED: DEXTROSE 50% 25 GM/50 ML VIAL IV PRN (10:10)
[2016-12-07] MEDS ORDERED: GLUCAGON 1 MG VIAL IM PRN (10:10)
[2016-12-07] MEDS: DILTIAZEM CD 180 MG CAPSULE PO SCH (10:31)
[2016-12-07] MEDS: ATENOLOL 50 MG TABLET PO SCH (10:32)
[2016-12-07] MEDS: CINACALCET 30 MG TABLET PO SCH (10:32)
[2016-12-07] MEDS: FINASTERIDE 5 MG TABLET PO SCH (10:32)
[2016-12-07] MEDS: NITROGLYCERIN 0.4 MG/HR PATCH TRANSDERM SCH (10:32)
--- NOTE | 2016-12-07 15:13 | Event Note ---
I have had a lengthy family discussion with the patient and his family in the room regarding the patient's situation. This patient has limited dialysis access options and Dr. Lockwood is concerned that the next dialysis catheter will have to be a translumbar although he is willing to try some deep neck options first. The patient's blood cultures unfortunately are still positive even after removal of his infected hemodialysis catheter on Sunday of this week. Because of his persistent infection and there is concern that his right groin purulent drainage from his AV graft site that had been previously partially removed, the best plan of care seems to be to take the patient to the operating room to remove the remainder of the infected material in his right groin. This could turn into a major vascular operation with repair or bypass extra-anatomic of his infected vessels there. The patient is not hyperkalemic on yesterday's labs and does not appear volume overloaded. He has not dialyzed since earlier this week. However, given the situation with infected tissue remaining in his right groin it seems like the best thing to do was to get this infection taken care of and continue a line holiday as long as possible hopefully until Sunday and clear his bacteremia prior to placing a new dialysis catheter. This has been discussed extensively with the family as well as with Dr. Lockwood and the anesthesiologist who will be covering the case tomorrow. On a more concerning note, the patient has limited dialysis access options and he is running out of place a split dialysis catheters. I have discussed the possibility with the patient and his family that the patient may end up needing emergent dialysis and we are unable to place a catheter which could result in his . Questions were answered in the room and the patient and his family understand the plan of care which is outlined above. The patient will be scheduled for exploration of his right groin with removal of infected tissue and repair or bypass of his femoral vessels. Dr. Barajas will be the primary surgeon on this operation and he is also discussed this with the patient. Dr. Hoover has also expressed an interest to be involved in the case tomorrow. I have been organizing the patient's care but I will not ultimately be involved in his surgery tomorrow. This is also been discussed with the family.
[2016-12-07] MEDS ORDERED: SODIUM POLYSTYRENE SULFATE 15 GM/60 ML BOTTLE PO SCH (15:30)
--- NOTE | 2016-12-07 15:35 | Nephrology Progress Note ---
Nephrology - PN: Subj Interval history: The patient denies shortness of breath. Review of systems GI denies nausea or vomiting, musculoskeletal he states his pain in his groin is better but states she still has acute episode of pain that may last about an hour or so. Patient has been receiving multiple narcotics including Dilaudid. Physical exam general the patient chronically ill-appearing, he seems to fall asleep readily when not stimulated Assessment/plan 1. End-stage renal disease-this patient's last dialysis was this past Sunday, prior to that it was about 5 days previous. 2. Bacteremia-patient has MRSA growing from his blood he has what seems like an infected right groin graft which is going to be explored and removed tomorrow , is reviewed by Dr. Car's note hopefully we can continue with a line holiday until Sunday. 3. Altered mental status-this patient is drowsy today he just received some IV Dilaudid he is also been getting [place], I am going to stop his Dilaudid for now. 4. Hypertension 5. Diabetes mellitus 6. Left internal jugular vein thrombosis-this patient's been started on heparin for this. Exam (PN)-Nephrology - Vital Signs Vital signs: Period Temp Pulse Resp BP Sys/Jalloh Pulse Ox Last 24 Hr 97.5 F-100.0 F 59-81 18-20 104-132/56-68 88-100 - Lab 12/05/16 05:02 12/05/16 05:02 Most recent lab results Calcium 8.3 MG/DL (8.5-10.1) L 12/05/16 05:02 Assessment and Plan (1) End stage renal disease on dialysis Status: Acute Assessment and plan: We will plan on dialyzing the patient this Sunday Current Visit: Yes (2) Nausea and vomiting Status: Acute Assessment and plan: This patient may have some gastro-enteritis related to food poisoning or this could be a reaction to a more substantial infection possibly related to the left groin catheter. Current Visit: Yes (3) Diabetes mellitus Status: Acute Current Visit: Yes (4) Essential hypertension Status: Acute Current Visit: Yes (5) Fever Status: Acute Assessment and plan: Patient has elevated white blood cell count, he is having some low-grade fever and a CT scan of his abdomen shows some changes associated with his left groin catheter, we may need to remove this catheter after his dialysis tomorrow and replace it with another catheter a few days later. I will ask general surgery to see him in consultation. I agree with IV antibiotics. Current Visit: Yes (6) Generalized abdominal pain Status: Acute Current Visit: Yes (7) Leukocytosis Status: Acute Current Visit: No
--- NOTE | 2016-12-07 16:40 | Infectious Disease Progress ---
Assessment and Plan (1) MRSA (methicillin resistant Staphylococcus aureus) septicemia Status: Acute Assessment and plan: One source of the septicemia is the left femoral dialysis catheter which had emilie pus around it. It seems there is likely endovascular infection associated with this dialysis catheter [based on CT findings] which has now been removed. 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 Fortunately JG done today was negative for endocarditis. Recommend agents: 1. Continue with vancomycin with goal trough level of 20-25. Discussed dosing with clinical pharmacist today. 2. I am told that the patient is going for removal of remaining graft material in right groin tomorrow. We will plan to repeat blood cultures after the surgery, so on Sunday. 3. Follow-up on finalized cultures from right groin wound This is a very complexed infection in patient with multiple comorbid. I discussed the situation with his and daughter. Case also discussed with Dr. Car and Dr. Willis. Patient is going to have dialysis access placed next week Sunday by interventional radiology. Prognosis guarded. Current Visit: Yes (2) Diabetes mellitus Status: Acute Current Visit: Yes (3) End stage renal disease on dialysis Status: Acute Current Visit: Yes (4) Essential hypertension Status: Acute Current Visit: Yes (5) Fever Status: Acute Assessment and plan: This is due to the MRSA septicemia from infected dialysis catheter. Vancomycin therapy as noted above. Current Visit: Yes (6) Hemodialysis catheter infection Status: Acute Assessment and plan: Due to MRSA, now removed. 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 Recommendations: Follow-up results of culture to see if there is something else other than MRSA. Surgery pending for tomorrow to remove the remaining graft material. Current Visit: Yes Infectious Disease - PN: Subj Interval history: Patient doing fair, is a bit drowsy today I think he got narcotics and also may have gotten some sedation for his JG today. T-max 100. He was too drowsy to contribute to history today. Infectious Disease Exam (PN) - Constitutional Vitals: Temp Pulse Resp BP Pulse Ox 98.3 F 60 18 126/64 92 L 12/07/16 15:50 12/07/16 15:50 12/07/16 15:50 12/07/16 15:50 12/07/16 15:50 General appearance: no acute distress, morbidly obese Exam: General appearance: no acute distress just very drowsy though arousable - Eye Eye exam: Present: EOMI. no icterus Pupils: Present: CAMRON - ENT ENT exam: no oral exudates - Respiratory Respiratory exam: vesicular BS, no crepitations or wheezes - Cardiovascular Cardiovascular exam: regular rate and rhythm, no murmurs - GI/Abdominal GI/Abdominal exam: normal bowel sounds, soft, non-tender, no organomegaly or mass - Extremities Exam Extremities exam: no edema, serous fluid oozing from left groin wound where hemodialysis catheter was removed; right groin wound is once again draining purulent material today - Skin Skin exam: no rash Results - Labs CBC & BMP: 12/05/16 05:02 12/07/16 15:03 Lab Results: I have reviewed the past 24 hour labs (Repeat blood cultures from yesterday positive 2 for gram-positive cocci)
[2016-12-07] MEDS ORDERED: SODIUM POLYSTYRENE SULFATE 15 GM/60 ML BOTTLE PO PRN (16:54)
--- NOTE | 2016-12-07 16:54 | Hospitalist Progress Note ---
Hospitalist: Subjective Interval history: 6-year-old male with MRSA bacteremia and ESRD. Exam - Constitutional Vitals: Period Temp Pulse Resp BP Sys/Jalloh Pulse Ox Last 24 Hr 97.5 F-100.0 F 59-81 18-20 104-127/56-68 90-100 Exam: General: [No Acute Distress] HEENT: [Normocephalic, atraumatic, Extra ocular movements intact] Neck: [Supple, No JVD] Chest: [Clear to auscultation B/L] CV: [S1 + S2 audible without murmur, gallop or rub] Abd: [soft, NT, Non-distended, BS +] Ext: [No edema] Skin: [Right inguinal area small wound] Rheumatologic: [No Joint deformities] Neurologic: [Awake and alert] Results - Labs CBC & BMP: 12/05/16 05:02 12/07/16 15:03 - Impressions Assessment and Plan: MRSA sepsis Status: Acute Assessment and plan: Source appears to be the left femoral hemodialysis catheter which has been removed 12/05. He would need IV Vanco for several weeks. 2D echo was unremarkable .appreciate ID following. Current Visit: Yes DVT involving right and left IJV, left common femoral vein Status: Acute vs chronic Assessment and plan: Is difficult to get on the timing whether acute subacute on chronic DVT. Currently he is on subcu heparin. Ultimately he likely would need to go on IV heparin and possibly Coumadin, which can be done after his HD access has been placed Current Visit: Yes Chronic right groin wound Status: Acute Assessment and plan: Patient had an infected graft removed by Dr. Hoover several months ago. Patient will continue to follow with Dr. Hoover as an outpatient Current Visit: Yes Nausea and vomiting/Abd pain Status: Acute Assessment and plan: This seems to be related to his current infection, this has improved Current Visit: Yes ESRD on HD Status: Chronic current Visit: Yes Essential hypertension Status: Acute Current Visit: Yes Diabetes mellitus Status: Acute Current Visit: Yes
[2016-12-07] MEDS: clonazePAM 0.5 MG TABLET PO SCH (21:32)
[2016-12-08] MEDS: ALBUTEROL/IPRATROPIUM 3 ML NEB RESP TX SCH ×7 (00:04→23:09)
[2016-12-08 05:28] LABS: Basophils # 0.1 10*3/uL (0.0-0.2); Basophils % 0.4 % (0.0-0.8); Eosinophils # 0.1 10*3/uL (0.0-0.87); Eosinophils % 0.3 % (0.00-10.9); Hematocrit 27.5 VOL% (42.0-52.0); Hemoglobin 8.9 GM/DL (14.0-18.0); Immature Granulocytes % 5.6 %; Immature Granulocytes Absolute 0.91 #; Lymphocytes % 6.1 % (21.2-54.2); Mean Corpuscular HGB Conc 32.4 GM/DL (32-36); Mean Corpuscular Hemoglobin 27 PG (27-34); Mean Corpuscular Volume 83.1 FL (87-102); Mean Platelet Volume 10.5 FL (9.6-12.0); Monocytes # 2.4 10*3/uL (0.11-0.8); Monocytes % 14.6 % (1.7-12.7); Neutrophils # 11.9 10*3/uL (1.4-7.4); Platelet Count 373 T/CUMM (130-400); Red Blood Count 3.31 MC/CUMM (3.8-5.5); White Blood Count 16.3 T/CUMM (4-12)
[2016-12-08 05:56] LABS: Calcium 8.4 MG/DL (8.5-10.1); Osmolality,Calculated 296.7 MOS/KG (273-304); Potassium 4.9 MMOL/L (3.5-5.1)
[2016-12-08 05:59] LABS: Calcium 8.4 MG/DL (8.5-10.1); Magnesium 2.6 MG/DL (1.8-2.4); Osmolality,Calculated 299.5 MOS/KG (273-304); Potassium 4.9 MMOL/L (3.5-5.1)
[2016-12-08 06:02] LABS: Hypochromasia 1+; Lymphocytes 4 % (20-55); Metamyelocytes 1 %; Microcytosis 1+; Segmented Neutrophils 86 % (50-85); Total Cells Counted 100
[2016-12-08 06:03] LABS: Platelet Estimate Normal
[2016-12-08] MEDS: INSULIN LISPRO 100 UNIT/ML SUBCUT SCH ×4 (08:28→21:30)
[2016-12-08] MEDS: DILTIAZEM CD 180 MG CAPSULE PO SCH (08:28)
[2016-12-08] MEDS: FINASTERIDE 5 MG TABLET PO SCH (08:29)
[2016-12-08] MEDS: NITROGLYCERIN 0.4 MG/HR PATCH TRANSDERM SCH (08:29)
[2016-12-08] MEDS: ATENOLOL 50 MG TABLET PO SCH (08:29)
[2016-12-08] MEDS: CINACALCET 30 MG TABLET PO SCH (08:29)
[2016-12-08] MEDS ORDERED: HEPARIN 5,000 UNIT/1 ML VIAL ONE ×2 (08:43→11:38)
[2016-12-08] MEDS ORDERED: THROMBIN TOPICAL (RECOMBINANT) 5,000 UNIT VIAL TOP ONE (08:44)
[2016-12-08] MEDS ORDERED: VANCOMYCIN 500 MG VIAL ONE ×2 (08:44→11:03)
[2016-12-08] MEDS ORDERED: BUPIVACAINE 0.5% 50 ML VIAL ONE ×2 (08:44→11:38)
[2016-12-08] MEDS ORDERED: SUGAMMADEX 200 MG/2 ML VIAL IV ONE (11:15)
--- NOTE | 2016-12-08 11:35 | Operative Note ---
Date of procedure: 12/08/16 Procedure: Dr. Barajas operative report Kiok Mcadams. 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 Postoperative diagnosis: Same Procedure: Excision of old chronically infected [place] graft material of the right superficial femoral artery and vein Indications for the procedure: The amish Mcadams is a 66-year-old man who has developed a chronically infected right groin with recurring infections of MRSA involving dialysis catheters had an old AV graft in the right thigh that that was removed leaving small cuffs at the superficial femoral artery and vein due to the continued infection we have recommended removal of the old AV graft material he will require placement of a new dialysis catheter after the bacteremia is cleared I discussed the procedure with its risks and complications which she seems to have some reasonable understanding of and agrees Description of the procedure: After the induction of general endotracheal anesthesia the patient's lower abdomen and right leg are prepped with ChloraPrep and draped in standard fashion I left the right foot draped in order to harvest saphenous vein if needed he had a draining sinus in the right inguinal incision made an elliptical incision about the chronically infected portion and initially worked upward to just at the inguinal ligament worked under the inguinal ligament and was able to control the external iliac artery which had a bifurcation with what is probably a large circumflex femoral artery these were controlled with a maxi vessel loop I then continued the dissection around the sinus excising the chronically infected skin and subcutaneous tissue and lymph nodes from this area there was gross purulence I worked my way down to a portion of the graft which on the lateral aspect appeared to be anastomosed to the artery I began a very tedious dissection trying to get around the artery proximal and distal to this site as I was doing this dissection I actually started bleeding at the site of the graft I was able to control proximally and distally I removed this portion of the graft consented to pathology I had already done cultures of the area found that as I dissected the artery was then varied bad shape it was very difficult to see where our had intima and where I had adventitia I did get more proximal control and then eventually used 5-0 Prolene in 4 to simply close tangent or horizontally the defect but I think this was primarily intima eventually I did use some of the very thickened adventitia and closed over this area with 4-0 Prolene then still had a cuff of graft more medially and began working around it and did have open vein which I was able to closed horizontally with 4-0 Prolene sutures this gave reasonably good control of the bleeding sites I listened with a Doppler and had very good flow in the iliac and common femoral and the circumflex femoral did not have flow at the site of the old graft. Dr. Josep parry joined the case and we discussed the options I felt the most appropriate thing at this point is simply to have removed the old infected graft have control of the vessels and we can monitor to determine if he develops severe ischemia of his right foot if so we can then do an extra on extra anatomic bypass although we do not know what the condition of his lower arterial system is as the CT angiogram only goes to the upper thigh. As I did note good flow in the iliac circumflex femoral and the common femoral I feel like there is adequate perfusion going through the circumflex femoral and the profunda which was not exposed during this dissection. I then irrigated copiously with saline I have had powdered vancomycin placed in wound I closed the femoral canal with interrupted 3-0 Monocryl used Tisseel in the depths of the wound further closed the subcu with 3 -0 Monocryl and then we used a Dakin's moist gauze with the plan for a wound VAC on the superficial femoral superficial tissues tomorrow blood loss is estimated at 11-1200 cc sponge counts correct and the patient taken to recovery in stable condition initial needle counts were off but work accurate at completion of the procedure Surgeon / Physician: Johnny Barajas Results - Labs CBC & BMP: 12/08/16 04:57 12/08/16 04:57 Discharge Plan - Discharge Medications No Action Omeprazole 20 mg PO DAILY Nitroglycerin 0.4 mg/Hr Patch [Nitro-Dur 0.4 mg/hr Patch] 1 patch TRANSDERM DAILY Cinacalcet [Sensipar] 30 mg PO DAILY Insulin Detemir [Levemir] 20 units SUBCUT DAILY Finasteride 5 mg PO DAILY clonazePAM TAB [KlonoPIN] 0.5 mg PO BEDTIME Atenolol 50 mg PO DAILY Bisacodyl Tab [Dulcolax Tab] 10 mg PO DAILY PRN #0 tablet PRN Reason: Constipation Ondansetron Inj [Zofran Inj] 4 mg IV Q4H PRN #0 vial PRN Reason: Nausea HYDROcodone/ACETAMIN 7.5-325 [[place] 7.5-325] 1 tablet PO Q6H PRN PRN Reason: Pain Temazepam [Restoril] 30 mg PO BEDTIME Lovastatin 20 mg PO DAILY Diltiazem Cd Cap [Cardizem CD] 360 mg PO DAILY Albuterol/Ipratropium Neb [Duoneb] 3 ml RESP TX RT Q4H Ciprofloxacin Inj [Cipro Inj] 200 mg IV Q24H Heparin Inj 5,000 unit SUBCUT Q8H vial Heparin Inj 2,000 unit IV .FOR DIALYSIS vial Insulin Regular [HumuLIN R] See Protocol SUBCUT ACHS unit Vancomycin Inj 1,000 mg IV .Non dialysis days PRN #0 vial PRN Reason: Level <15 on non dialysis days Vancomycin Inj 1,500 mg IV WITH DIALYSIS PRN #0 vial PRN Reason: Level <20 on dialysis days - Follow Up or Referral - Forms/Instructions
[2016-12-08] MEDS ORDERED: ONDANSETRON 4 MG/2 ML VIAL IV PRN (11:36)
--- NOTE | 2016-12-08 11:38 | Anesthesia Post-Op ---
Anesthesia Post OP - Post Ansesthetic Evaluation Patient seen in post op: Yes Resp: within normal limits CV: within normal limits Mental: within normal limits Temp: within normal limits Qmco-Ew-Plrjaivkq: within normal limits Nausea and Vomiting: within normal limits Pain: within normal limits
[2016-12-08] MEDS ORDERED: PROPOFOL 200 MG/20 ML VIAL IV ONE (11:42)
[2016-12-08] MEDS ORDERED: SEVOFLURANE 1 UNIT/15 MINUTE INH ONE (11:43)
[2016-12-08] MEDS ORDERED: ROCURONIUM 100 MG/10 ML VIAL IV ONE (11:43)
[2016-12-08] MEDS ORDERED: fentaNYL 100 MCG/2 ML VIAL ONE (11:43)
--- NOTE | 2016-12-08 12:20 | XRay Report ---
Portable chest Exam date: 12/08/2016 11:44 AM Indication: Shortness of breath, cough Comparison: Previous day at 0535 hours Findings: Cardiomediastinal contours are stable with no change in pacemaker placement. Interval right jugular central venous catheter placement with distal tip superimposed over the right lung apex. Minimal if any change in the central interstitial prominence, accentuated by low lung volumes. Thickening and/or trace fluid along the right major fissure again noted. No acute osseous abnormalities. Visualized upper abdomen demonstrates no acute pathology. Impression: Right central venous catheter placement as described, otherwise no significant change in the appearance the chest PROCEDURE INTERPRETED AT [facility] [place] DEPARTMENT OF RADIOLOGY Final Report Signed by: Mulugeta Cornejo
[2016-12-08] MEDS ORDERED: SODIUM CHLORIDE 0.9% 500 ML IV SCH (12:30)
[2016-12-08 12:35] LABS: Hematocrit 25.4 VOL% (42.0-52.0); Hemoglobin 8.3 GM/DL (14.0-18.0)
--- NOTE | 2016-12-08 12:36 | Nephrology Progress Note ---
Nephrology - PN: Subj Interval history: Patient is seen status post right groin exploration with graft material removal for infection. The patient was sleeping initially however he awakens and is coherent. Physical exam general the patient is chronically ill-appearing, heart is regular rate and rhythm, he has no pitting edema, lungs are clear to auscultation anteriorly, abdomen is soft with positive bowel sounds Assessment/plan 1. HD catheter infection-we will continue IV antibiotics. Patient had removal of his HD catheter this past Sunday he is now status post removal of infected right groin graft. 2. End-stage renal disease-patient's last dialysis was this past Sunday, his creatinine was around 14 today his potassium is around 4.7, I think will be able to make it till Sunday without dialysis however I would place a HD catheter Sunday and reinitiate dialysis at that time 3. Hypertension this control 4. Diabetes mellitus this is controlled Exam (PN)-Nephrology - Vital Signs Vital signs: Period Temp Pulse Resp BP Sys/Jalloh Pulse Ox Last 24 Hr 97.0 F-100.1 F 60-65 16-20 111-140/57-75 86-99 - Lab 12/08/16 04:57 12/08/16 04:57 Most recent lab results Calcium 8.4 MG/DL (8.5-10.1) L 12/08/16 04:57 Magnesium 2.6 MG/DL (1.8-2.4) H 12/08/16 04:57 Assessment and Plan (1) End stage renal disease on dialysis Status: Acute Assessment and plan: We will plan on dialyzing the patient this Sunday Current Visit: Yes (2) Nausea and vomiting Status: Acute Assessment and plan: This patient may have some gastro-enteritis related to food poisoning or this could be a reaction to a more substantial infection possibly related to the left groin catheter. Current Visit: Yes (3) Diabetes mellitus Status: Acute Current Visit: Yes (4) Essential hypertension Status: Acute Current Visit: Yes (5) Fever Status: Acute Assessment and plan: Patient has elevated white blood cell count, he is having some low-grade fever and a CT scan of his abdomen shows some changes associated with his left groin catheter, we may need to remove this catheter after his dialysis tomorrow and replace it with another catheter a few days later. I will ask general surgery to see him in consultation. I agree with IV antibiotics. Current Visit: Yes (6) Generalized abdominal pain Status: Acute Current Visit: Yes (7) Leukocytosis Status: Acute Current Visit: No
[2016-12-08 13:14] LABS: Calcium 7.8 MG/DL (8.5-10.1); Osmolality,Calculated 298.7 MOS/KG (273-304)
--- NOTE | 2016-12-08 13:54 | Event Note ---
The low Brown is awake alert talking is not complaining with any foot pain right foot is warm but does not have palpable pulses which is chronic postoperative lab is good I explained to him what we found and did and what our plan will be for treatment.
--- NOTE | 2016-12-08 16:33 | Hospitalist Progress Note ---
Hospitalist: Subjective Interval history: Patient went to operating room today to get the remaining parts of his his infected AV graft removed. He was admitted with MRSA bacteremia Exam - Constitutional Vitals: Period Temp Pulse Resp BP Sys/Jalloh Pulse Ox Last 24 Hr 96.6 F-100.1 F 50-68 16-20 111-140/57-75 86-99 Exam: General: [No Acute Distress] HEENT: [Normocephalic, atraumatic, Extra ocular movements intact] Neck: [Supple, No JVD] Chest: [Clear to auscultation B/L] CV: [S1 + S2 audible without murmur, gallop or rub] Abd: [soft, NT, Non-distended, BS +] Ext: [No edema] Skin: [Right inguinal area small wound] Rheumatologic: [No Joint deformities] Neurologic: [Awake and alert] Results - Labs CBC & BMP: 12/08/16 12:29 12/08/16 12:29 - Impressions Assessment and Plan: MRSA sepsis Status: Acute Assessment and plan: Source appears to be the left femoral hemodialysis catheter which has been removed 12/05. He would need IV Vanco for several weeks. 2D echo was unremarkable .appreciate ID following. Current Visit: Yes DVT involving right and left IJV, left common femoral vein Status: Acute vs chronic Assessment and plan: Is difficult to get on the timing whether acute subacute on chronic DVT. However since he has DVT and multiple sites, will start him on Eliquis 5 mg p.o. twice daily once he is started back on HD Current Visit: Yes Chronic right groin wound Status: Acute Assessment and plan: Patient had an infected graft removed by Dr Barajas today Current Visit: Yes Nausea and vomiting/Abd pain Status: Acute Assessment and plan: This seems to be related to his current infection, this has improved Current Visit: Yes ESRD on HD Status: Chronic current Visit: Yes Essential hypertension Status: Acute Current Visit: Yes Diabetes mellitus Status: Acute Current Visit: Yes Quality Measures - VTE Contraindication to Pharmacological VTE Prophylaxis: High Risk of Bleeding
--- NOTE | 2016-12-08 17:55 | Infectious Disease Progress ---
Assessment and Plan (1) MRSA (methicillin resistant Staphylococcus aureus) septicemia Status: Acute Assessment and plan: One source of the septicemia is the left femoral dialysis catheter which had emilie pus around it. It seems there is likely endovascular infection associated with this dialysis catheter [based on CT findings] which has now been removed. 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 Fortunately JG done today was negative for endocarditis. Recommend agents: 1. Continue with vancomycin with goal trough level of 20-25. 2. Rpt bld cultures again tomorrow Current Visit: Yes (2) Diabetes mellitus Status: Acute Current Visit: Yes (3) End stage renal disease on dialysis Status: Acute Current Visit: Yes (4) Essential hypertension Status: Acute Current Visit: Yes (5) Fever Status: Acute Assessment and plan: This is due to the MRSA septicemia from infected dialysis catheter. Vancomycin therapy as noted above. Current Visit: Yes (6) Hemodialysis catheter infection Status: Acute Assessment and plan: Due to MRSA, now removed. 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 Graft removed today. Recommendations: Follow-up results of culture to see if there is something else other than MRSA. Current Visit: Yes Infectious Disease - PN: Subj Interval history: Delayed entry - Pt seen soon after he got back to his room from surgery. Was still sedated. Graft material successfully removed. Low grade fever. Infectious Disease Exam (PN) - Constitutional Vitals: Temp Pulse Resp BP Pulse Ox 96.6 F L 68 18 127/57 96 12/08/16 16:00 12/08/16 16:03 12/08/16 16:03 12/08/16 16:00 12/08/16 16:03 General appearance: no acute distress, morbidly obese Exam: General appearance: still sedated from surgery - Respiratory Respiratory exam: vesicular BS, no crepitations or wheezes - Cardiovascular Cardiovascular exam: regular rate and rhythm, no murmurs - GI/Abdominal GI/Abdominal exam: normal bowel sounds, soft, non-tender, no organomegaly or mass - Extremities Exam Extremities exam: no edema, serous fluid oozing from left groin wound where hemodialysis catheter was removed; right groin wound with surgical dressing - Skin Skin exam: no rash Results - Labs CBC & BMP: 12/08/16 12:29 12/08/16 12:29 Lab Results: I have reviewed the past 24 hour labs Quality Measures - VTE Contraindication to Pharmacological VTE Prophylaxis: High Risk of Bleeding
[2016-12-08] MEDS: clonazePAM 0.5 MG TABLET PO SCH (21:30)
[2016-12-09] MEDS: ALBUTEROL/IPRATROPIUM 3 ML NEB RESP TX SCH ×6 (03:10→23:50)
[2016-12-09 07:03] LABS: Hematocrit 24.5 VOL% (42.0-52.0); Hemoglobin 8.1 GM/DL (14.0-18.0)
[2016-12-09] MEDS: INSULIN LISPRO 100 UNIT/ML SUBCUT SCH ×4 (07:19→20:36)
[2016-12-09 07:45] LABS: Calcium 7.9 MG/DL (8.5-10.1); Osmolality,Calculated 296.9 MOS/KG (273-304); Potassium 5.3 MMOL/L (3.5-5.1)
[2016-12-09] MEDS: ATENOLOL 50 MG TABLET PO SCH (08:36)
[2016-12-09] MEDS: CLOPIDOGREL 75 MG TABLET PO SCH (08:36)
[2016-12-09] MEDS: CINACALCET 30 MG TABLET PO SCH (08:36)
[2016-12-09] MEDS: FINASTERIDE 5 MG TABLET PO SCH (08:36)
[2016-12-09] MEDS: DILTIAZEM CD 180 MG CAPSULE PO SCH (08:37)
[2016-12-09] MEDS: NITROGLYCERIN 0.4 MG/HR PATCH TRANSDERM SCH (08:38)
--- NOTE | 2016-12-09 11:46 | Event Note ---
This patient is postoperative day 1 for exploration of right groin and removal of infected AV graft. He is afebrile with normal vital signs. His hemoglobins have stabilized around 8 g/dL. His wound is clean and still has some clear drainage. The wound was replaced with a wound VAC. Patient appears to be doing well and he is not complaining of any significant pain or numbness in his foot on the right side. We will continue current care and wound VAC over the weekend. Repeat chemistry and CBC tomorrow.
--- NOTE | 2016-12-09 11:56 | Nephrology Progress Note ---
Nephrology - PN: Subj Interval history: Ms. Torri Mcadams is seen in follow-up of his end-stage renal disease. His creatinine today is 14 and his potassium 5.3. His last dialysis was on the the plan is for placement of a due to dialysis catheter on the and dialysis at that time. Today he is somewhat sleepy but has been talking with his family. He has no significant edema and continues to receive antibiotics. His BUN is 120 and bicarb 21. He should be able to remain off dialysis until Sunday Exam (PN)-Nephrology - Vital Signs Vital signs: Period Temp Pulse Resp BP Sys/Jalloh Pulse Ox Last 24 Hr 96.6 F-99.1 F 50-68 16-20 112-132/57-75 84-99 - Lab 12/09/16 06:40 12/09/16 06:40 Most recent lab results Calcium 7.9 MG/DL (8.5-10.1) L 12/09/16 06:40 Magnesium 2.6 MG/DL (1.8-2.4) H 12/08/16 04:57
[2016-12-09] MEDS ORDERED: MAGNESIUM HYDROXIDE SUSP 30 ML UDCUP PO PRN (14:09)
--- NOTE | 2016-12-09 16:30 | Hospitalist Progress Note ---
Assessment and Plan (1) Infected aortic graft Status: Acute Assessment and plan: Continue vancomycin. Unfortunately we cannot use rifampin in this case because of serious drug interaction on with medication that patient needs to use. Current Visit: Yes (2) Sepsis Problem details: GNRs -> proteus, most likely source of his sepsis. Improved on cipro. Status: Acute Assessment and plan: Patient is on antibiotics Current Visit: No (3) Leukocytosis Status: Acute Current Visit: No (4) MRSA (methicillin resistant Staphylococcus aureus) septicemia Status: Acute Assessment and plan: Continue current medication Current Visit: Yes Hospitalist: Subjective Interval history: Patient has been seen interviewed and examined chart has been reviewed gentleman in hospital with a complex clinical syndrome surrounding infection of dialysis shunt. This has since been removed patient does of methicillin- resistant staph aureus bacteremia. He also has some mild anemia from acute blood loss. He is asymptomatic at this time. 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 These look to be chronic and since he is a symptomatic I believe the acute treatment is debatable. He is on vancomycin and if he is not going to get in anticoagulants I believe we can add rifampin for better result of bacterial clearance with vancomycin in relating to these MRSA. However he is also on calcium channel blockers which makes use of rifampin as an adjunct to vancomycin contraindication. For this reason, unfortunate rifampin cannot be added. Mentioned in the past, this gentleman has multiple DVTs apparent instigated by placement of dialysis catheter. This suggests that the patient may be thrombophilic; he needs to be evaluated for this in the near future. A comment from hematology may be necessary to exact when he can be optimally evaluated. Exam - Constitutional Vitals: Period Temp Pulse Resp BP Sys/Jalloh Pulse Ox Last 24 Hr 97.2 F-99.1 F 59-68 17-20 112-132/60-69 84-98 General appearance: morbidly obese - Head Head exam: Present: normocephalic, atraumatic - Eye Eye exam: Present: EOMI Pupils: Present: CAMRON - Cardiovascular Cardiovascular exam: Present: regular rate and rhythm (Electronically paced beats on EKG) - GI/Abdominal GI/Abdominal exam: Present: normal bowel sounds, soft - Extremities Exam Extremities exam: Present: full ROM, other (Trace edema) - Neurological Exam Neurological exam: Present: alert, oriented X3, CN II-XII intact - Psychiatric Psychiatric exam: Present: normal affect, normal mood Results - Labs CBC & BMP: 12/09/16 06:40 12/09/16 06:40 Lab Results: I have reviewed the past 24 hour labs Quality Measures - VTE Contraindication to Pharmacological VTE Prophylaxis: High Risk of Bleeding
[2016-12-09] MEDS: clonazePAM 0.5 MG TABLET PO SCH (20:36)
[2016-12-10] MEDS: ALBUTEROL/IPRATROPIUM 3 ML NEB RESP TX SCH ×6 (03:45→23:25)
[2016-12-10 07:00] LABS: Basophils # 0.1 10*3/uL (0.0-0.2); Basophils % 0.2 % (0.0-0.8); Eosinophils % 0.2 % (0.00-10.9); Hemoglobin 7.5 GM/DL (14.0-18.0); Immature Granulocytes % 8.2 %; Immature Granulocytes Absolute 1.83 #; Lymphocytes # 1.2 10*3/uL (1.4-4.0); Lymphocytes % 5.3 % (21.2-54.2); Mean Corpuscular HGB Conc 32.6 GM/DL (32-36); Mean Corpuscular Hemoglobin 27 PG (27-34); Mean Corpuscular Volume 83.6 FL (87-102); Mean Platelet Volume 10.5 FL (9.6-12.0); Monocytes # 2.7 10*3/uL (0.11-0.8); Monocytes % 12.2 % (1.7-12.7); Neutrophils # 16.4 10*3/uL (1.4-7.4); Neutrophils % 73.9 % (38.7-73.9); Platelet Count 423 T/CUMM (130-400); Red Blood Count 2.75 MC/CUMM (3.8-5.5); Red Cell Distribution Width 18.8 % (9.3-17.3); White Blood Count 22.2 T/CUMM (4-12)
[2016-12-10 07:01] LABS: Hematocrit 22.9 VOL% (42.0-52.0); Hemoglobin 7.5 GM/DL (14.0-18.0)
[2016-12-10 07:33] LABS: Calcium 7.7 MG/DL (8.5-10.1); Osmolality,Calculated 296.2 MOS/KG (273-304); Potassium 5.3 MMOL/L (3.5-5.1)
[2016-12-10 07:42] LABS: Hypochromasia 2+; Lymphocytes 7 % (20-55); Microcytosis 1+; Segmented Neutrophils 86 % (50-85); Target Cells Slight; Total Cells Counted 100
[2016-12-10 07:43] LABS: Platelet Estimate Adequate
[2016-12-10] MEDS: INSULIN LISPRO 100 UNIT/ML SUBCUT SCH ×4 (08:26→20:32)
[2016-12-10] MEDS: CINACALCET 30 MG TABLET PO SCH (09:21)
[2016-12-10] MEDS: CLOPIDOGREL 75 MG TABLET PO SCH (09:22)
[2016-12-10] MEDS: NITROGLYCERIN 0.4 MG/HR PATCH TRANSDERM SCH (09:23)
[2016-12-10] MEDS: DILTIAZEM CD 180 MG CAPSULE PO SCH (09:23)
[2016-12-10] MEDS: FINASTERIDE 5 MG TABLET PO SCH (09:24)
[2016-12-10] MEDS: ATENOLOL 50 MG TABLET PO SCH (09:24)
--- NOTE | 2016-12-10 09:30 | Nephrology Progress Note ---
Nephrology - PN: Subj Interval history: Mr. Mcadams is seen in follow-up of his end-stage renal disease. He is alert today and in no distress. He is able to lie flat. His potassium is stable at 5.3. Plan is for placement of a dialysis catheter tomorrow and resumption of hemodialysis. He has a wound VAC on his groin. Exam (PN)-Nephrology - Vital Signs Vital signs: Period Temp Pulse Resp BP Sys/Jalloh Pulse Ox Last 24 Hr 97.4 F-98.6 F 60-88 18-22 106-122/58-71 90-99 - Lab 12/10/16 06:35 12/10/16 06:35 Most recent lab results Calcium 7.7 MG/DL (8.5-10.1) L 12/10/16 06:35 Magnesium 2.6 MG/DL (1.8-2.4) H 12/08/16 04:57
--- NOTE | 2016-12-10 11:37 | Event Note ---
This patient is postoperative day #2 following exploration of right groin with excision of infected AV graft. Wound VAC was placed yesterday. The patient says he has no pain in his right foot or numbness and tingling. Is using his foot normally. The wound VAC has a good seal and has minimal serosanguineous output. The patient's potassium is 5.3 today. He will be placed on the schedule for interventional radiology hemodialysis catheter tomorrow. This was discussed with Dr. Lockwood last week.
--- NOTE | 2016-12-10 14:45 | Hospitalist Progress Note ---
Assessment and Plan (1) Infected aortic graft Status: Acute Assessment and plan: Continue vancomycin. Unfortunately we cannot use rifampin in this case because of serious drug interaction on with medication that patient needs to use. Current Visit: Yes (2) Sepsis Problem details: GNRs -> proteus, most likely source of his sepsis. Improved on cipro. Status: Acute Assessment and plan: Patient is on antibiotics Current Visit: No (3) Leukocytosis Status: Acute Current Visit: No (4) MRSA (methicillin resistant Staphylococcus aureus) septicemia Status: Acute Assessment and plan: Continue current medication Current Visit: Yes Hospitalist: Subjective Interval history: Patient has been seen interviewed and examined and chart has been reviewed. Mr. Mcadams seem to be doing a little better. Repeat blood cultures done yesterday are not growing anything yet today my office this will be determined. Admitted to the hospital with a graft associated infection with bacteremia caused by methicillin resistant staph aureus. Patient has had incision and drainage and debridement of the area surgical area. Both wound on blood however MRSA. I will swab the nares to evaluate for carriage. If so patient will need to have serial pulse-form use of intranasal Bactroban. Exam - Constitutional Vitals: Period Temp Pulse Resp BP Sys/Jalloh Pulse Ox Last 24 Hr 97.4 F-98.6 F 60-88 18-22 106-122/58-71 90-99 General appearance: morbidly obese - Head Head exam: Present: normocephalic - Eye Eye exam: Present: EOMI - Respiratory Respiratory exam: Present: clear to auscultation bilaterally - Cardiovascular Cardiovascular exam: Present: regular rate and rhythm - GI/Abdominal GI/Abdominal exam: Present: normal bowel sounds, soft - Neurological Exam Neurological exam: Present: alert, oriented X3, CN II-XII intact Results - Labs CBC & BMP: 12/10/16 06:35 12/10/16 06:35 Lab Results: I have reviewed the past 24 hour labs (Noted hyponatremia and leukocytosis. Patient is on dialysis and pending placement of dialysis Johnathan tomorrow for dialysis process. Repeat chemistries tomorrow repeat CBC tomorrow) Quality Measures - VTE Contraindication to Pharmacological VTE Prophylaxis: High Risk of Bleeding
[2016-12-10] MEDS: clonazePAM 0.5 MG TABLET PO SCH (20:31)
[2016-12-11] MEDS: ALBUTEROL/IPRATROPIUM 3 ML NEB RESP TX SCH ×6 (03:47→23:49)
--- NOTE | 2016-12-11 07:04 | Nephrology Progress Note ---
Nephrology - PN: Subj Interval history: Patient denies shortness of breath. Review of systems GI denies nausea or vomiting, general-the patient feels a little bit sleepy and tired more so than usual Physical exam general patient is in no acute distress Assessment/plan 1. End-stage renal disease-this patient had graft material removed from his leg 3 days ago he had a hemodialysis catheter removed about 7 days ago, he is to undergo HD access placement today and hemodialysis thereafter 2. Hypertension this control 3. Diabetes mellitus this is controlled Exam (PN)-Nephrology - Vital Signs Vital signs: Period Temp Pulse Resp BP Sys/Jalloh Pulse Ox Last 24 Hr 97.4 F-98.3 F 59-88 16-20 92-127/54-63 88-99 - Lab 12/10/16 06:35 12/10/16 06:35 Most recent lab results Calcium 7.7 MG/DL (8.5-10.1) L 12/10/16 06:35 Magnesium 2.6 MG/DL (1.8-2.4) H 12/08/16 04:57 Assessment and Plan (1) End stage renal disease on dialysis Status: Acute Assessment and plan: We will plan on dialyzing the patient this Sunday Current Visit: Yes (2) Nausea and vomiting Status: Acute Assessment and plan: This patient may have some gastro-enteritis related to food poisoning or this could be a reaction to a more substantial infection possibly related to the left groin catheter. Current Visit: Yes (3) Diabetes mellitus Status: Acute Current Visit: Yes (4) Essential hypertension Status: Acute Current Visit: Yes (5) Fever Status: Acute Assessment and plan: Patient has elevated white blood cell count, he is having some low-grade fever and a CT scan of his abdomen shows some changes associated with his left groin catheter, we may need to remove this catheter after his dialysis tomorrow and replace it with another catheter a few days later. I will ask general surgery to see him in consultation. I agree with IV antibiotics. Current Visit: Yes (6) Generalized abdominal pain Status: Acute Current Visit: Yes (7) Leukocytosis Status: Acute Current Visit: No
[2016-12-11 07:22] LABS: Hematocrit 23.6 VOL% (42.0-52.0); Hemoglobin 7.6 GM/DL (14.0-18.0)
--- NOTE | 2016-12-11 07:29 | Event Note ---
No changes overnight. Wound VAC has a good seal. We will arrange for this to be changed by wound care today. Patient is scheduled for tunneled hemodialysis catheter with interventional radiology today. Blood cultures last set are negative to date.
[2016-12-11 08:13] LABS: Basophils # 0.1 10*3/uL (0.0-0.2); Basophils % 0.3 % (0.0-0.8); Eosinophils # 0.1 10*3/uL (0.0-0.87); Eosinophils % 0.2 % (0.00-10.9); Hematocrit 23.3 VOL% (42.0-52.0); Hemoglobin 7.7 GM/DL (14.0-18.0); Immature Granulocytes Absolute 2.46 #; Lymphocytes # 1.4 10*3/uL (1.4-4.0); Lymphocytes % 6.4 % (21.2-54.2); Mean Corpuscular Hemoglobin 27 PG (27-34); Mean Corpuscular Volume 82.9 FL (87-102); Mean Platelet Volume 10.7 FL (9.6-12.0); Monocytes # 2.4 10*3/uL (0.11-0.8); Monocytes % 10.9 % (1.7-12.7); Neutrophils # 15.9 10*3/uL (1.4-7.4); Neutrophils % 71.2 % (38.7-73.9); Platelet Count 466 T/CUMM (130-400); Red Blood Count 2.81 MC/CUMM (3.8-5.5); Red Cell Distribution Width 18.8 % (9.3-17.3); White Blood Count 22.4 T/CUMM (4-12)
[2016-12-11 08:50] LABS: Eosinophils 2 % (0-10); Lymphocytes 9 % (20-55); Myelocytes 1 %; Segmented Neutrophils 79 % (50-85); Total Cells Counted 100
[2016-12-11 08:51] LABS: Anisocytosis 1+; Hypochromasia 1+; Microcytosis 1+; Platelet Estimate Increased
[2016-12-11 08:57] LABS: Albumin 1.9 G/DL (3.4-5.0); Bilirubin,Total 0.5 MG/DL (0.2-1.0); Calcium 7.7 MG/DL (8.5-10.1); Magnesium 2.7 MG/DL (1.8-2.4); Osmolality,Calculated 300.1 MOS/KG (273-304); Phosphorous 12.2 MG/DL (2.5-4.9); Potassium 5.8 MMOL/L (3.5-5.1); Total Protein 7.1 G/DL (6.4-8.3)
--- NOTE | 2016-12-11 09:40 | Hospitalist Progress Note ---
Assessment and Plan (1) Diabetes mellitus Status: Acute Assessment and plan: Blood glucose levels remain mildly elevated. We will continue Accu-Cheks before meals and at bedtime as previously ordered. Current Visit: Yes (2) End stage renal disease on dialysis Status: Acute Assessment and plan: Nephrology to manage Current Visit: Yes (3) Hemodialysis catheter infection Status: Acute Assessment and plan: The patient is scheduled for hemodialysis catheter removal this a.m. per interventional radiology. We will continue empiric antibiotic coverage as previously ordered. Current Visit: Yes (4) Anemia in chronic kidney disease Status: Chronic Assessment and plan: Hemoglobin/ hematocrit noted at 7.6/23.6. The patient's anemia is chronic in nature. Nephrology to manage. Current Visit: No Exam - Constitutional Vitals: Period Temp Pulse Resp BP Sys/Jalloh Pulse Ox Last 24 Hr 97.4 F-98.7 F 59-68 16-20 92-127/54-65 88-99 General appearance: normal weight, no acute distress - Head Head exam: Present: normal inspection, normocephalic, atraumatic - Eye Eye exam: Present: EOMI. Absent: conjunctival injection Pupils: Present: CAMRON, normal accommodation - ENT ENT exam: Present: normal exam, normal external ear exam, normal oropharynx - Neck Neck exam: Present: normal inspection. Absent: lymphadenopathy, meningismus, thyromegaly - Respiratory Respiratory exam: Present: clear to auscultation bilaterally. Absent: rales, rhonchi, stridor, wheezes - Cardiovascular Cardiovascular exam: Present: regular rate and rhythm. Absent: carotid bruit, diastolic murmur, gallop, JVD, rubs, systolic murmur - GI/Abdominal GI/Abdominal exam: Present: normal bowel sounds, soft - Extremities Exam Extremities exam: Present: other (Wound VAC noted to left lower leg) - Back Exam Back exam: Present: normal inspection - Neurological Exam Neurological exam: Present: alert, oriented X3, CN II-XII intact - Psychiatric Psychiatric exam: Present: normal affect, normal mood - Skin Skin exam: Present: normal color, warm, dry Results - Labs CBC & BMP: 12/11/16 07:01 12/11/16 07:01 Lab Results: I have reviewed the past 24 hour labs Quality Measures - VTE Contraindication to Pharmacological VTE Prophylaxis: High Risk of Bleeding
--- NOTE | 2016-12-11 11:20 | Pathology Report from [facility] ---
[facility] [place] ACCESSION # : [id number] PATIENT NAME : Katya Mcadams ORDERING DR : CYNTHIA MIRAMONTES MD CLINICAL HX: Infected right groin AV graft POST-OP DX: Same SPECIMEN INFO: Right femoral graft site GROSS DESCRIPTION: The specimen is received in formalin labeled with the patients name and consists of two fragments of skin and subcutaneous tissue measuring 6.0 x 4.0 x 2.0 cm in aggregate. [employer] Of [employer]s sections submitted in one cassette. DIAGNOSIS FOR KATYA MCADAMS: RIGHT FEMORAL GRAFT SITE: Abscess with acute and chronic inflammation. COLLECTED DATE: 12/08/2016 [facility] REPORT DATE: 12/11/2016 ELECTRONICALLY SIGNED BY: Sharmila Moeller M.D. 12/11/2016 - 9:32:54 [facility] CENTERHoward
--- NOTE | 2016-12-11 13:34 | IR History and Physical Update ---
IR Pre-Procedure - History and Physical H&P was reviewed, the patient examined and there: are no changes in the patients condition since last H&P was completed. Reason for procedure:: ESRD with no HD access - and multiple failed prior accesses - Dictation Physical: refer to H&P completed by admitting physician - Physical Exam Vital Signs: Last Vital Signs Temp 99.2 F 12/11/16 11:24 Pulse 60 12/11/16 11:24 Resp 19 12/11/16 11:24 BP 116/61 12/11/16 11:24 Pulse Ox 92 L 12/11/16 11:24 Mental Status: alert and oriented Heart: regular rate and rhythm Lung: clear to auscultation Abdomen: within normal limits - Sedation IR anesthesia plan for sedation: moderate ASA Class: III Airway Assessment: Class III: Soft palate, base of uvula visible - Risks Risks: Procedures explained. Risks discussed include, but not limited to, the following:[ bleeding, infection, injury to adjacent structures] All questions answered. The following alternatives were discussed:[ none] Risks and benefits discussed with: patient Consent obtained from: patient Assessment and Plan - Time spent with patient Time spent with patient: Less than 30 minutes
--- NOTE | 2016-12-11 14:01 | Infectious Disease Progress ---
Assessment and Plan (1) MRSA (methicillin resistant Staphylococcus aureus) septicemia Status: Acute Assessment and plan: MRSA septicemia due to infected hemodialysis catheter and infection of right femoral AV graft. JG was negative for endocarditis. Recommend agents: 1. Continue with vancomycin with goal trough level of 20-25. 2. Follow-up results of Rpt bld cultures Current Visit: Yes (2) Diabetes mellitus Status: Acute Current Visit: Yes (3) End stage renal disease on dialysis Status: Acute Current Visit: Yes (4) Essential hypertension Status: Acute Current Visit: Yes (5) Fever Status: Acute Assessment and plan: This is due to the MRSA septicemia from infected dialysis catheter. He seems to finally defervesced. Current Visit: Yes (6) Hemodialysis catheter infection Status: Acute Assessment and plan: Due to MRSA, now removed. 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 Graft removed last Sunday. Current Visit: Yes Infectious Disease - PN: Subj Interval history: Uneventful weekend. Patient has been afebrile for 4 days. He denies any complaints today except that he was sleeping because he keeps being disturbed. He is able to get a tunneled hemodialysis catheter today. Infectious Disease Exam (PN) - Constitutional Vitals: Temp Pulse Resp BP Pulse Ox 99.2 F 60 19 116/61 92 L 12/11/16 11:24 12/11/16 11:24 12/11/16 11:24 12/11/16 11:24 12/11/16 11:24 General appearance: normal weight, no acute distress Exam: General appearance: Sleepy but arousable - HEENT No oral exudates - Respiratory Respiratory exam: vesicular BS, no crepitations or wheezes - Cardiovascular Cardiovascular exam: regular rate and rhythm, no murmurs - GI/Abdominal GI/Abdominal exam: normal bowel sounds, soft, non-tender, no organomegaly or mass - Extremities Exam Extremities exam: Healing wound to left groin wound where hemodialysis catheter was removed; right groin wound with wound VAC - Skin Skin exam: no rash Results - Labs CBC & BMP: 12/11/16 07:01 12/11/16 07:01 Lab Results: I have reviewed the past 24 hour labs (Repeat blood cultures from the 16th negative today) Quality Measures - VTE Contraindication to Pharmacological VTE Prophylaxis: High Risk of Bleeding
[2016-12-11] MEDS ORDERED: fentaNYL 100 MCG/2 ML VIAL ONE (14:08)
[2016-12-11] MEDS ORDERED: MIDAZOLAM 2 MG/2 ML VIAL ONE (14:08)
[2016-12-11] MEDS ORDERED: HEPARIN LOCK FLUSH 500 UNIT/5 ML SYRINGE IV ONE (14:19)
[2016-12-11] MEDS ORDERED: TISSUE ADHESIVE 1 EACH APPLICATOR TOP ONE (15:24)
--- NOTE | 2016-12-11 16:23 | Post Interventional Procedure ---
Pre-op diagnosis: ESRD with resolved septicemia and needs HD cathter placement Post-op diagnosis: same Procedure: left IJ tunneled HD catheter placement Contrast: 15 mL Flouroscopy: 17.8 min Radiologist: Donell Mitchell Anesthesia: local Specimens: none sent Estimated blood loss: minimal (20 mL) Complications: none Condition: stable Description/Findings: see formal dictation left IJ catheter placement done and ready for use Assessment and Plan - Time spent with patient Time spent with patient: Greater than 30 minutes
[2016-12-11] MEDS: INSULIN LISPRO 100 UNIT/ML SUBCUT SCH ×3 (18:24→21:36)
[2016-12-11 20:11] LABS: Hepatitis A Ab IgM Quant 0.11 Index; Hepatitis A Ab IgM Result Negative (Negative); Hepatitis B Core IgM Quant 0.12 Index; Hepatitis B Core IgM Result Negative (Negative); Hepatitis B Surface Ag Quant < 0.10 Index; Hepatitis B Surface Ag Result Negative (Negative); Hepatitis C Virus Ab Quant 0.08 Index; Hepatitis C Virus Ab Result Negative (Negative)
[2016-12-11] MEDS ORDERED: HEPARIN 10,000 UNIT/10 ML VIAL IV SCH (20:30)
[2016-12-11] MEDS: DILTIAZEM CD 180 MG CAPSULE PO SCH (21:34)
[2016-12-11] MEDS: CLOPIDOGREL 75 MG TABLET PO SCH (21:34)
[2016-12-11] MEDS: NITROGLYCERIN 0.4 MG/HR PATCH TRANSDERM SCH (21:34)
[2016-12-11] MEDS: FINASTERIDE 5 MG TABLET PO SCH (21:35)
[2016-12-11] MEDS: CINACALCET 30 MG TABLET PO SCH (21:35)
[2016-12-11] MEDS: ATENOLOL 50 MG TABLET PO SCH (21:35)
[2016-12-11] MEDS: clonazePAM 0.5 MG TABLET PO SCH (21:45)
[2016-12-12] MEDS: ALBUTEROL/IPRATROPIUM 3 ML NEB RESP TX SCH ×6 (02:45→23:09)
[2016-12-12 05:36] LABS: Basophils # 0.1 10*3/uL (0.0-0.2); Basophils % 0.3 % (0.0-0.8); Eosinophils # 0.1 10*3/uL (0.0-0.87); Eosinophils % 0.3 % (0.00-10.9); Hematocrit 22.8 VOL% (42.0-52.0); Hemoglobin 7.5 GM/DL (14.0-18.0); Immature Granulocytes % 13.7 %; Immature Granulocytes Absolute 3.08 #; Lymphocytes # 1.3 10*3/uL (1.4-4.0); Lymphocytes % 5.9 % (21.2-54.2); Mean Corpuscular HGB Conc 32.9 GM/DL (32-36); Mean Corpuscular Hemoglobin 27 PG (27-34); Mean Corpuscular Volume 83.2 FL (87-102); Mean Platelet Volume 10.1 FL (9.6-12.0); Monocytes # 2.6 10*3/uL (0.11-0.8); Monocytes % 11.8 % (1.7-12.7); Neutrophils # 15.2 10*3/uL (1.4-7.4); Platelet Count 474 T/CUMM (130-400); Red Blood Count 2.74 MC/CUMM (3.8-5.5); Red Cell Distribution Width 18.6 % (9.3-17.3); White Blood Count 22.4 T/CUMM (4-12)
[2016-12-12 05:58] LABS: Band Neutrophils 2 % (0-10); Eosinophils 1 % (0-10); Lymphocytes 7 % (20-55); Metamyelocytes 1 %; Myelocytes 1 %; Promyelocytes 1 %; Segmented Neutrophils 76 % (50-85); Total Cells Counted 100
[2016-12-12 05:59] LABS: Hypochromasia 1+; Microcytosis 1+; Platelet Estimate Increased
[2016-12-12 06:33] LABS: Albumin 1.9 G/DL (3.4-5.0); Calcium 7.7 MG/DL (8.5-10.1); Magnesium 2.6 MG/DL (1.8-2.4); Osmolality,Calculated 287.8 MOS/KG (273-304); Potassium 5.2 MMOL/L (3.5-5.1); Total Protein 7.2 G/DL (6.4-8.3)
[2016-12-12] MEDS: HYDROmorphone 2 MG/1 ML VIAL IV PRN ×2 (07:21→21:27)
--- NOTE | 2016-12-12 07:26 | Event Note ---
The patient is doing well following right groin exploration with excision of infected graft. He had a tunneled dialysis catheter placed in the left jugular vein yesterday. We will change the wound VAC shortly. Continue antibiotics and wound VAC. Prelim cultures are still negative to date post graft excision
--- NOTE | 2016-12-12 07:59 | Interventional Radiology Rpt ---
IR cvc insrt tunnel wo prt/supply chain coordinator, IR fluoro guide cv cath, US guide vascular access IR Permcath Perm-catheter placement using fluoroscopic and ultrasound guidance Ultrasound of the bilateral neck Clinical Information: 66-year-old male with end-stage renal disease and multiple failed dialysis access sites. Most recent is excision of an infected right groin dialysis graft and removal of a left groin infected dialysis catheter. Patient with septic but now has cleared all blood cultures and is afebrile x4 days. Request is for dialysis catheter placement. Physician: Dr. Mitchell Procedure: The patient was advised of the benefits, risks, and alternatives of the procedure and informed consent was obtained. A time out was performed with verification of the patient's name, MRN, site of procedure, and type of procedure to be performed. The patient was positioned in the supine position on the angiographic table. The site was prepped and draped in the usual sterile fashion. Local anesthesia only was used for the procedure. Ultrasound of the right neck reveals completely occluded internal jugular vein. The external jugular vein is patent. An indwelling catheter is noted in the external jugular vein. This catheter was accessed and venogram demonstrates filling of the external jugular system with multiple collaterals draining into the central venous circulation. There is no direct drainage into the innominate vein or SVC. A Glidewire was advanced through the catheter and subsequently, the subclavian vein was catheterized. Repeat arteriogram via a Kumpe catheter demonstrates similar findings. Again, there is no communication to the innominate vein/SVC. This access was abandoned. Pressure was held and a sterile dressing was applied. Left neck ultrasound demonstrates a patent and partially compressible left internal jugular vein with some thrombus formation noted primarily inferiorly. Initial attempts to access the vein were unsuccessful. Ultrasound visualization of the IJ to subclavian vein confluence was visualized from a supraclavicular position. A supraclavicular access into the inferior most portion of the internal jugular vein was obtained with ultrasound guidance. Ultrasound imaging was retained for the patient's medical record. Following access into the SVC, the left neck and anterior chest wall were anesthetized with lidocaine. A Glidewire was advanced into the inferior vena cava. The Glidewire was exchanged for a standard Amplatz wire. Incisions at the internal jugular access site and anterior chest wall were made using a scalpel. A 23 cm 14.5 Thai Glidepath catheter was inserted through subcutaneous tissues of the chest wall with a tunneling device. The microintroducer sheath was removed and the internal jugular puncture site was upsized with a dilator. A peel-away sheath was placed over the wire and into the superior vena cava. The wire and insert were removed. The catheter was passed into the internal jugular vein via the sheath. The peel-away sheath was then removed. The catheter tip was positioned at the cavoatrial junction. Catheter lumens were evaluated and brisk aspiration was evident. The puncture site was closed with subcutaneous 3-0 Vicryl and skin glue/Steri-Strips. The catheter was secured in place using a 2-0 Prolene. Both sites were cleansed and sterile dressings were applied. The patient tolerated the procedure well and was returned to the PRU in stable condition. EBL: < 5 mL. Complications: None. Total Fluoroscopy time: 17.8 minutes Total number of images for the procedure: 110 Conclusion: Successful placement of a 23 cm Thai 14.5 Thai Glidepath catheter via the left internal jugular vein. The catheter is ready for immediate use. 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 PROCEDURE INTERPRETED AT [facility] DEPARTMENT OF RADIOLOGY Final Report Signed by: Donell Mitchell
[2016-12-12] MEDS ORDERED: VANCOMYCIN INJ 750 MG in SODIUM CHLORIDE 0.9% 250 ML IV ONE (08:30)
[2016-12-12] MEDS: INSULIN LISPRO 100 UNIT/ML SUBCUT SCH ×4 (08:37→21:26)
[2016-12-12] MEDS: CINACALCET 30 MG TABLET PO SCH (08:43)
[2016-12-12] MEDS: CLOPIDOGREL 75 MG TABLET PO SCH (08:43)
[2016-12-12] MEDS: FINASTERIDE 5 MG TABLET PO SCH (08:43)
[2016-12-12] MEDS: NITROGLYCERIN 0.4 MG/HR PATCH TRANSDERM SCH (08:44)
[2016-12-12] MEDS: DILTIAZEM CD 180 MG CAPSULE PO SCH (08:44)
[2016-12-12] MEDS: ATENOLOL 50 MG TABLET PO SCH (08:44)
--- NOTE | 2016-12-12 08:52 | Hospitalist Progress Note ---
<Ana Ramosda - Last Filed: 12/12/16 08:50> Assessment and Plan (1) Diabetes mellitus Status: Acute Assessment and plan: Blood glucose levels remain mildly elevated. We will continue Accu-Cheks before meals and at bedtime as previously ordered. Current Visit: Yes (2) End stage renal disease on dialysis Status: Acute Assessment and plan: Nephrology to manage Current Visit: Yes (3) Hemodialysis catheter infection Status: Acute Assessment and plan: The patient is scheduled for hemodialysis catheter removal this a.m. per interventional radiology. We will continue empiric antibiotic coverage as previously ordered. 12/12-Vas-Cath was removed yesterday per interventional radiology. No growth to date per recent blood cultures. White blood cell count noted at 22.4. We will continue empiric antibiotic coverage per infectious disease recommendation. Current Visit: Yes (4) Anemia in chronic kidney disease Status: Chronic Assessment and plan: Hemoglobin/ hematocrit noted at 7.6/23.6. The patient's anemia is chronic in nature. Nephrology to manage. 12/12-hemoglobin hematocrit noted at 7.5/22.8. Nephrology to manage. Current Visit: No Hospitalist: Subjective Interval history: Patient seen and evaluated; chart reviewed. No significant overnight events reported per staff. Vas-Cath removal per interventional radiology on yesterday with left jugular vein vascular catheter placement. Exam - Constitutional Vitals: Period Temp Pulse Resp BP Sys/Jalloh Pulse Ox Last 24 Hr 97.4 F-99.2 F 59-63 16-22 109-148/54-81 90-98 General appearance: normal weight, no acute distress - Head Head exam: Present: normal inspection, normocephalic, atraumatic - Eye Eye exam: Present: EOMI. Absent: conjunctival injection Pupils: Present: CAMRON, normal accommodation - ENT ENT exam: Present: normal exam, normal external ear exam, normal oropharynx - Neck Neck exam: Present: normal inspection, other (Left jugular vein vascular catheter noted). Absent: lymphadenopathy, meningismus, thyromegaly - Respiratory Respiratory exam: Present: clear to auscultation bilaterally. Absent: rales, rhonchi, stridor, wheezes - Cardiovascular Cardiovascular exam: Present: regular rate and rhythm, other (AV fistula right upper arm). Absent: carotid bruit, diastolic murmur, gallop, JVD, rubs, systolic murmur - GI/Abdominal GI/Abdominal exam: Present: normal bowel sounds, soft. Absent: mass - Extremities Exam Extremities exam: Present: normal inspection, normal capillary refill, full ROM , other (Wound VAC to right groin status ) - Back Exam Back exam: Present: normal inspection - Neurological Exam Neurological exam: Present: alert, oriented X3, CN II-XII intact - Psychiatric Psychiatric exam: Present: normal affect, normal mood - Skin Skin exam: Present: normal color, warm, dry Results - Labs CBC & BMP: 12/12/16 04:40 12/12/16 04:40 Lab Results: I have reviewed the past 24 hour labs Quality Measures - VTE Contraindication to Pharmacological VTE Prophylaxis: High Risk of Bleeding <Manjit Isbell - Last Filed: 12/12/16 11:00> Hospitalist: Subjective Interval history: Patient continues on intravenous antibiotics for her catheter device infection. I have interviewed and examined the patient reviewed all available laboratory test results. I agree with the assessments and plans of Shazia Ramos/ Exam - Constitutional Vitals: Period Temp Pulse Resp BP Sys/Jalloh Pulse Ox Last 24 Hr 97.4 F-99.2 F 59-68 16-22 109-148/8-81 90-98 Results - Labs CBC & BMP: 12/12/16 04:40 12/12/16 04:40
--- NOTE | 2016-12-12 11:49 | Nephrology Progress Note ---
Nephrology - PN: Subj Interval history: Patient reports breathing okay. Review of systems GI-he complains of intermittent abdominal pain, he denies nausea or vomiting Physical exam general the patient's in no acute distress Assessment/plan 1. End-stage renal disease-we will continue hemodialysis support 2. Anemia-patient's hematocrit around 22%, I am going to transfuse him 2 units packed red blood cells on dialysis 3. Hypertension this is controlled 4. Diabetes mellitus continue present hypoglycemic regimen Exam (PN)-Nephrology - Vital Signs Vital signs: Period Temp Pulse Resp BP Sys/Jalloh Pulse Ox Last 24 Hr 97.4 F-98.7 F 59-68 16-22 109-148/8-81 90-98 - Lab 12/12/16 04:40 12/12/16 04:40 Most recent lab results Calcium 7.7 MG/DL (8.5-10.1) L 12/12/16 04:40 Phosphorus 9.0 MG/DL (2.5-4.9) H 12/12/16 04:40 Magnesium 2.6 MG/DL (1.8-2.4) H 12/12/16 04:40 Assessment and Plan (1) End stage renal disease on dialysis Status: Acute Assessment and plan: We will plan on dialyzing the patient this Sunday Current Visit: Yes (2) Nausea and vomiting Status: Acute Assessment and plan: This patient may have some gastro-enteritis related to food poisoning or this could be a reaction to a more substantial infection possibly related to the left groin catheter. Current Visit: Yes (3) Diabetes mellitus Status: Acute Current Visit: Yes (4) Essential hypertension Status: Acute Current Visit: Yes (5) Fever Status: Acute Assessment and plan: Patient has elevated white blood cell count, he is having some low-grade fever and a CT scan of his abdomen shows some changes associated with his left groin catheter, we may need to remove this catheter after his dialysis tomorrow and replace it with another catheter a few days later. I will ask general surgery to see him in consultation. I agree with IV antibiotics. Current Visit: Yes (6) Generalized abdominal pain Status: Acute Current Visit: Yes (7) Leukocytosis Status: Acute Current Visit: No
[2016-12-12] MEDS ORDERED: diphenhydrAMINE CAP 25 MG CAPSULE PO PRN (11:50)
[2016-12-12] MEDS ORDERED: SODIUM CHLORIDE 0.9% 250 ML IV PRN (11:50)
--- NOTE | 2016-12-12 15:53 | Infectious Disease Progress ---
Assessment and Plan (1) MRSA (methicillin resistant Staphylococcus aureus) septicemia Status: Acute Assessment and plan: MRSA septicemia due to infected hemodialysis catheter and infection of right femoral AV graft. JG was negative for endocarditis. AV graft removed. Repeat blood cultures negative so found patient's been afebrile. Overall seems to be getting better. Recommend agents: 1. Continue with vancomycin with goal trough level of 20-25. 2. Follow-up finalized results of Rpt bld cultures Current Visit: Yes (2) Diabetes mellitus Status: Acute Current Visit: Yes (3) End stage renal disease on dialysis Status: Acute Current Visit: Yes (4) Essential hypertension Status: Acute Current Visit: Yes (5) Fever Status: Resolved Assessment and plan: resolved. Current Visit: Yes (6) Hemodialysis catheter infection Status: Acute Assessment and plan: Due to MRSA, now removed. 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 Graft removed last Sunday. GPC's growing. Current Visit: Yes Infectious Disease - PN: Subj Interval history: Patient doing fairly okay. He got tunneled hemodialysis catheter and left internal jugular vein and got dialysis yesterday. He has not had any fever for several days. Wound VAC to right groin. No complaints, he just sleeps a lot according to his . Infectious Disease Exam (PN) - Constitutional Vitals: Temp Pulse Resp BP Pulse Ox 98.8 F 60 20 116/63 98 12/12/16 11:30 12/12/16 14:17 12/12/16 15:00 12/12/16 11:30 12/12/16 14:17 General appearance: normal weight, no acute distress Exam: General appearance: Sleepy but arousable and responded appropriately - HEENT No oral exudates - Respiratory Respiratory exam: vesicular BS, no crepitations or wheezes - Cardiovascular Cardiovascular exam: regular rate and rhythm, no murmurs - GI/Abdominal GI/Abdominal exam: normal bowel sounds, soft, non-tender, no organomegaly or mass - Extremities Exam Extremities exam: left groin wound with clean dressing, right groin wound with wound VAC - Skin Skin exam: no rash Results - Labs CBC & BMP: 12/12/16 04:40 12/12/16 04:40 Lab Results: I have reviewed the past 24 hour labs (Repeat blood cultures from the 16th negative to date) Quality Measures - VTE Contraindication to Pharmacological VTE Prophylaxis: High Risk of Bleeding
[2016-12-13] MEDS: ALBUTEROL/IPRATROPIUM 3 ML NEB RESP TX SCH ×4 (02:42→15:31)
--- NOTE | 2016-12-13 08:06 | Event Note ---
The patient was seen and examined today. We changed his wound VAC yesterday and the wound appears clean. There is no active bleeding. His foot is well- perfused and not in need of any revascularization. A tunneled left internal jugular hemodialysis catheter was achieved by Dr. Mitchell. Patient is dialyzing through this. I would be okay with him being transferred to the [facility] if he meets criteria for wound care to this right groin wound and I will continue to follow him while he is here.
[2016-12-13] MEDS: FINASTERIDE 5 MG TABLET PO SCH (08:53)
[2016-12-13] MEDS: CLOPIDOGREL 75 MG TABLET PO SCH (08:53)
[2016-12-13] MEDS: ATENOLOL 50 MG TABLET PO SCH (08:53)
[2016-12-13] MEDS: DILTIAZEM CD 180 MG CAPSULE PO SCH (08:53)
[2016-12-13] MEDS: CINACALCET 30 MG TABLET PO SCH (08:53)
[2016-12-13] MEDS: NITROGLYCERIN 0.4 MG/HR PATCH TRANSDERM SCH (08:54)
[2016-12-13] MEDS: INSULIN LISPRO 100 UNIT/ML SUBCUT SCH ×3 (08:54→16:50)
--- NOTE | 2016-12-13 10:23 | Hospitalist Progress Note ---
<Shazia Ramos - Last Filed: 12/13/16 10:24> Assessment and Plan (1) Diabetes mellitus Status: Acute Assessment and plan: Blood glucose levels remain mildly elevated. We will continue Accu-Cheks before meals and at bedtime as previously ordered. Current Visit: Yes (2) End stage renal disease on dialysis Status: Acute Assessment and plan: Nephrology to manage. Current Visit: Yes (3) Hemodialysis catheter infection Status: Acute Assessment and plan: The patient is scheduled for hemodialysis catheter removal this a.m. per interventional radiology. We will continue empiric antibiotic coverage as previously ordered. 12/12-Vas-Cath was removed yesterday per interventional radiology. No growth to date per recent blood cultures. White blood cell count noted at 22.4. We will continue empiric antibiotic coverage per infectious disease recommendation. Current Visit: Yes (4) Anemia in chronic kidney disease Status: Chronic Assessment and plan: Hemoglobin/ hematocrit noted at 7.6/23.6. The patient's anemia is chronic in nature. Nephrology to manage. 12/12-hemoglobin hematocrit noted at 7.5/22.8. Nephrology to manage. 12/13-no labs obtained this a.m. Will recheck labs in a.m. Current Visit: No Hospitalist: Subjective Interval history: Patient seen and examined; chart reviewed. No significant overnight events reported per staff. Exam - Constitutional Vitals: Period Temp Pulse Resp BP Sys/Jalloh Pulse Ox Last 24 Hr 97.7 F-99.4 F 57-95 16-22 116-122/59-66 83-98 General appearance: no acute distress, morbidly obese - Head Head exam: Present: normal inspection, normocephalic, atraumatic - Eye Eye exam: Present: EOMI. Absent: conjunctival injection Pupils: Present: CAMRON, normal accommodation - ENT ENT exam: Present: normal exam, normal external ear exam, normal oropharynx - Neck Neck exam: Present: normal inspection, other (Left jugular vein vascular catheter noted). Absent: lymphadenopathy, meningismus, tenderness, thyromegaly - Respiratory Respiratory exam: Present: clear to auscultation bilaterally. Absent: rales, rhonchi, stridor, wheezes - Cardiovascular Cardiovascular exam: Present: regular rate and rhythm, other (AV fistula right upper arm). Absent: carotid bruit, diastolic murmur, gallop, JVD, rubs, systolic murmur - GI/Abdominal GI/Abdominal exam: Present: normal bowel sounds, soft - Extremities Exam Extremities exam: Present: normal inspection, normal capillary refill, full ROM , other (Wound VAC noted to right groin). Absent: edema - Back Exam Back exam: Present: normal inspection - Neurological Exam Neurological exam: Present: alert, oriented X3, CN II-XII intact - Psychiatric Psychiatric exam: Present: normal affect, normal mood - Skin Skin exam: Present: normal color, warm, dry Results - Labs CBC & BMP: 12/12/16 04:40 12/12/16 04:40 Lab Results: I have reviewed the past 24 hour labs Quality Measures - VTE Contraindication to Pharmacological VTE Prophylaxis: High Risk of Bleeding <Manjit Isbell - Last Filed: 12/13/16 10:43> Hospitalist: Subjective Interval history: Patient is being evaluated today for possible placement at [facility]. Exam - Constitutional Vitals: Period Temp Pulse Resp BP Sys/Jalloh Pulse Ox Last 24 Hr 97.7 F-99.4 F 57-95 16-22 116-122/59-66 83-98 Results - Labs CBC & BMP: 12/12/16 04:40 12/12/16 04:40
--- NOTE | 2016-12-13 12:29 | Infectious Disease Progress ---
Assessment and Plan (1) MRSA (methicillin resistant Staphylococcus aureus) septicemia Status: Acute Assessment and plan: MRSA septicemia due to infected hemodialysis catheter. The right femoral AV graft material did not grow MRSA but instead MSSE. JG was negative for endocarditis. AV graft removed. Repeat blood cultures negative so far. Recommend agents: 1. Continue with vancomycin with goal trough level of 20-25. 2. Follow-up finalized results of Rpt bld cultures Current Visit: Yes (2) Diabetes mellitus Status: Acute Current Visit: Yes (3) End stage renal disease on dialysis Status: Acute Current Visit: Yes (4) Essential hypertension Status: Acute Current Visit: Yes (5) Fever Status: Resolved Assessment and plan: resolved. Current Visit: Yes (6) Hemodialysis catheter infection Status: Acute Assessment and plan: Due to MRSA, now removed. 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 Graft removed last Sunday and culture positive for MSSE. Previously right groin wound cultures had different organisms including MRSA hemolyticus and MRSE. Current Visit: Yes Infectious Disease - PN: Subj Interval history: Patient was seen in dialysis. Extremely drowsy but arousable however he did not communicate. He has not had any fever for many days. Was too drowsy to speak to me. Infectious Disease Exam (PN) - Constitutional Vitals: Temp Pulse Resp BP Pulse Ox 99.4 F 60 20 120/59 94 L 12/13/16 07:45 12/13/16 07:45 12/13/16 07:45 12/13/16 07:45 12/13/16 07:45 General appearance: no acute distress, morbidly obese Exam: General appearance: Extremely drowsy - HEENT Mouth dry - Respiratory Respiratory exam: vesicular BS, no crepitations or wheezes - Cardiovascular Cardiovascular exam: regular rate and rhythm, no murmurs - GI/Abdominal GI/Abdominal exam: normal bowel sounds, soft, non-tender, no organomegaly or mass - Extremities Exam Extremities exam: left groin wound with clean dressing, right groin wound with wound VAC - Skin Skin exam: no rash Results - Labs CBC & BMP: 12/12/16 04:40 12/12/16 04:40 Lab Results: I have reviewed the past 24 hour labs (MSSA from right groin AV graft material. Previously the right groin wound culture was positive for MRSE and MRS hemolyticus) Quality Measures - VTE Contraindication to Pharmacological VTE Prophylaxis: High Risk of Bleeding
--- NOTE | 2016-12-13 13:22 | Nephrology Progress Note ---
Nephrology - PN: Subj Interval history: Patient seen on hemodialysis, he is tolerating this well will continue his treatment unchanged. We will be happy to continue his vancomycin as an outpatient in dialysis upon discharge. Exam (PN)-Nephrology - Vital Signs Vital signs: Period Temp Pulse Resp BP Sys/Jalloh Pulse Ox Last 24 Hr 97.7 F-99.4 F 57-95 16-22 120-122/59-66 83-98 - Lab 12/12/16 04:40 12/12/16 04:40 Most recent lab results Calcium 7.7 MG/DL (8.5-10.1) L 12/12/16 04:40 Phosphorus 9.0 MG/DL (2.5-4.9) H 12/12/16 04:40 Magnesium 2.6 MG/DL (1.8-2.4) H 12/12/16 04:40 Assessment and Plan (1) End stage renal disease on dialysis Status: Acute Assessment and plan: We will plan on dialyzing the patient this Sunday Current Visit: Yes (2) Nausea and vomiting Status: Acute Assessment and plan: This patient may have some gastro-enteritis related to food poisoning or this could be a reaction to a more substantial infection possibly related to the left groin catheter. Current Visit: Yes (3) Diabetes mellitus Status: Acute Current Visit: Yes (4) Essential hypertension Status: Acute Current Visit: Yes (5) Fever Status: Resolved Assessment and plan: Patient has elevated white blood cell count, he is having some low-grade fever and a CT scan of his abdomen shows some changes associated with his left groin catheter, we may need to remove this catheter after his dialysis tomorrow and replace it with another catheter a few days later. I will ask general surgery to see him in consultation. I agree with IV antibiotics. Current Visit: Yes (6) Generalized abdominal pain Status: Acute Current Visit: Yes (7) Leukocytosis Status: Acute Current Visit: No
[2016-12-13] MEDS ORDERED: VANCOMYCIN INJ 750 MG in SODIUM CHLORIDE 0.9% 250 ML IV ONE (15:00)
--- NOTE | 2016-12-13 15:44 | Discharge Summary ---
Hospital Course - Hospital Course Hospital Course: Mr. Mcadams is a 66 year old black male w/PMHx of hypertension, diabetes, GERD presented to the ED via EMS for further evaluation of worsening abdominal pain and diarrhea since Sunday with increasing shortness of breath x2 days. He has a left groin dialysis catheter without redness at site or drainage noted. He reports last dialysis was Sunday on the 29 of November and missed dialysis on Sunday. He reports some nausea without vomiting and fever without notable chills. He is sleepy upon exam but easily awakened and answered all questions appropriately. IN ED: Abd XR: nothing acute. left common femoral dialysis catheter. CXR: nothing acute. Abd CT: Left femoral vein catheter present with stranding around the left iliac vein and left iliac artery, could indicate thrombophlebitis and/or previous hemorrhage. There is increased soft tissue density in the left pelvic sidewall likely a combination multiple lymph nodes. There is also increasing lymph nodes in the para-aortic area. LABS SIgnificant: WBC 20.6, H&H 10.4 & 31.3, Na 131, Angion gap 18.8, BUN 96, Creatinine 13.40, Glucose 125, Calcium 8.3. Urinalysis: leukocytes small, WBC 17. LACTIC acid is pending results. Was given a dose of Vancomycin in ER. Subsequent blood cultures grew MRSA. Patient was seen in consultation by Dr. Mesa of infectious diseases. Recommended removal of the hemodialysis catheter as the site of infection. Patient was begun on intravenous vancomycin. The catheter was removed and replaced with a trans- lumbar catheter by Dr. Car of surgery. Patient had diffuse skin ulcers involving both lower extremities. He was seen in consultation by Dr. Car for this problem which was subsequently managed with local care and debridement by Dr. Car and wound care. By the time of discharge the skin ulcers had significantly, although not completely, resolved. It was recognized at the time of discharge that he would require continuing treatment of this problem. In addition it was recognized that he would require continuing vancomycin. At the time of his discharge he was stable. Diagnosis - Discharge Diagnosis (1) Skin ulcers of both feet Status: Chronic (2) ESRD (end stage renal disease) on dialysis Status: Chronic (3) Sepsis Status: Acute (4) Insulin dependent diabetes mellitus Status: Chronic (5) Hemodialysis catheter infection Status: Acute (6) MRSA (methicillin resistant Staphylococcus aureus) septicemia Status: Acute (7) Right groin wound Status: Acute Discharge Plan - Discharge Data Disposition: Swing Bed, Hos Based, [facility] Condition at Discharge: Stable Discharge Diet: advance to your usual diet Activity: resume usual activities as tolerated - Discharge Medications New Vancomycin Inj 750 mg IV PRN PRN vial PRN Reason: PHARMACY DOSING Clopidogrel [Plavix] 75 mg PO DAILY tablet Continue Omeprazole 20 mg PO DAILY Nitroglycerin 0.4 mg/Hr Patch [Nitro-Dur 0.4 mg/hr Patch] 1 patch TRANSDERM DAILY Cinacalcet [Sensipar] 30 mg PO DAILY Insulin Detemir [Levemir] 20 units SUBCUT DAILY Finasteride 5 mg PO DAILY clonazePAM TAB [KlonoPIN] 0.5 mg PO BEDTIME Atenolol 50 mg PO DAILY Bisacodyl Tab [Dulcolax Tab] 10 mg PO DAILY PRN #0 tablet PRN Reason: Constipation Ondansetron Inj [Zofran Inj] 4 mg IV Q4H PRN #0 vial PRN Reason: Nausea HYDROcodone/ACETAMIN 7.5-325 [[place] 7.5-325] 1 tablet PO Q6H PRN PRN Reason: Pain Temazepam [Restoril] 30 mg PO BEDTIME Lovastatin 20 mg PO DAILY Diltiazem Cd Cap [Cardizem CD] 360 mg PO DAILY Albuterol/Ipratropium Neb [Duoneb] 3 ml RESP TX RT Q4H Ciprofloxacin Inj [Cipro Inj] 200 mg IV Q24H Heparin Inj 5,000 unit SUBCUT Q8H vial Heparin Inj 2,000 unit IV .FOR DIALYSIS vial Insulin Regular [HumuLIN R] See Protocol SUBCUT ACHS unit Vancomycin Inj 1,000 mg IV .Non dialysis days PRN #0 vial PRN Reason: Level <15 on non dialysis days Vancomycin Inj 1,500 mg IV WITH DIALYSIS PRN #0 vial PRN Reason: Level <20 on dialysis days - Follow Up or Referral - Forms/Instructions Exam - Constitutional Vitals: Period Temp Pulse Resp BP Sys/Jalloh Pulse Ox Last 24 Hr 97.7 F-99.4 F 57-95 16-22 120-122/59-66 92-98 Discharge Results Procedures and tests throughout hospitalization: Pending Orders 12/09/16 06:40 Blood Culture IN AM 12/12/16 Red Blood Cells Leuko Red Routine Type and Screen Routine Labs on day of discharge: Labs from last 24 hours 12/13/16 12/13/16 12/13/16 15:28 12:11 07:48 POC Glucose 103 107 H 172 H Blood Type Antibody Screen Crossmatch 12/12/16 12/12/16 12/12/16 Unknown 20:54 16:12 POC Glucose 163 H 180 H Blood Type B POSITIVE Antibody Screen Negative Crossmatch See Detail Preliminary micro results at discharge 12/09/16 06:40 Blood Culture - Preliminary Blood No growth at 3 days 12/09/16 06:40 Blood Culture - Preliminary Blood No growth at 3 days DS: Provider Date of admission: 12/04/16 13:10 Primary care physician: . No PCP Attending physician on admission: Edgar Nagy MD Consults: 12/04/16 13:49 Consult to Physician [CONS] Routine Comment: dialysis MWF (last dialysis sunday)/pt of Dr Archuleta Consulting Provider: Evaristo Willis When should Consulting Provider be notified: Now Person Notified: SOHEILA Date Notified: 12/04/16 Time Notified: 15:21 12/04/16 14:41 Consult to Pharmacy [CONS] Routine Reason for Pharmacy Consult: Dose/Manage Vancomycin Comment: patient is chronic renal failure/dialysis MWF 12/04/16 15:33 Consult to Physician [CONS] Routine Comment: Gen. Surg. eval for HD catheter infection/removal Consulting Provider: Marcell Car Person Notified: MD PANDEY Date Notified: 12/05/16 Time Notified: 10:06 12/04/16 21:04 Consult to Pastoral Services [CONS] Routine Comment: Pastoral Screen: Request Rn Home Health Visit 12/05/16 10:27 Consult to Physician [CONS] Routine Comment: Consult for gram-positive cocci in blood Consulting Provider: Codi Hicks When should Consulting Provider be notified: Now When should Consulting Provider be notified: Now Person Notified: DONN Date Notified: 12/05/16 Time Notified: 10:30 12/07/16 15:08 Consult to Anesthesiology [CONS] Routine Consulting Provider: Reason for Anesthesiology: Pre-op Clearance 12/10/16 14:46 Consult to Physical Therapy [CONS] Routine Reason for Physical Therapy: Evaluate and Treat Start Therapy: Tomorrow Discharging clinician: Manjit Isbell
[2016-12-13 16:37] VITALS: BP 147/71
== END 2016-12-13 17:37 | DRG 252 ==
LOC: EDBD → EDUNIT# → N.ED 09:21 → N.EDINP 13:10 → SUATTDRO 13:10 → N.EDINP 15:56 → N.5E 16:57
PROVIDERS: ADMIT Hospitalist; ATTEND Family Medicine
PROC: EXPLORE (2016-12-08 09:04)

== ENCOUNTER 2019-04-27 12:12 | Inpatient (IN) ==
[2019-04-27] MEDS ORDERED: ALBUTEROL 2.5 MG/3 ML NEB RESP TX STA (12:37)
[2019-04-27 12:47] LABS: Basophils # 0.1 10*3/uL (0.0-0.2); Basophils % 0.7 % (0.0-0.8); Hematocrit 36.4 VOL% (42.0-52.0); Immature Granulocytes % 1.6 %; Immature Granulocytes Absolute 0.14 #; Lymphocytes # 0.6 10*3/uL (1.4-4.0); Lymphocytes % 6.1 % (21.2-54.2); Mean Corpuscular HGB Conc 30.2 GM/DL (32-36); Mean Corpuscular Volume 90.5 FL (87-102); Mean Platelet Volume 10.6 FL (9.6-12.0); Monocytes % 12.4 % (1.7-12.7); Neutrophils % 79.2 % (38.7-73.9); Platelet Count 157 T/CUMM (130-400); Red Blood Count 4.02 MC/CUMM (3.8-5.5); Red Cell Distribution Width 17.7 % (9.3-17.3)
[2019-04-27] MEDS ORDERED: ACETAMINOPHEN 500 MG TABLET PO STA (12:50)
[2019-04-27 12:53] LABS: ABG Base Excess 2.7 MMOL/L (-2.5-2.5); ABG HCO3 26.5 MMOL/L (20-26); ABG Oxygen Saturation 84.4 % (95-100); ABG PCO2 52.4 MM HG (35-48); ABG PH 7.354 (7.35-7.45); ABG PO2 52.6 MM HG (80-95); ABG TCO2 26.4 MMOL/L (23-27); Allen Test Positive
[2019-04-27 12:59] LABS: PT Patient Result 11.2 SECS (9.6-12.2)
[2019-04-27] MEDS ORDERED: LEVOFLOXACIN INJ 500 MG in PREMIX 1 EACH IV STA (13:01)
[2019-04-27 13:24] LABS: Albumin 3.4 G/DL (3.4-5.0); Bilirubin,Total 0.6 MG/DL (0.2-1.0); Calcium 8.8 MG/DL (8.5-10.1); Osmolality,Calculated 270.5 MOS/KG (273-304); Total Protein 8.1 G/DL (6.4-8.3)
[2019-04-27] MEDS ORDERED: ACETAMINOPHEN 325 MG TABLET PO PRN (14:14)
[2019-04-27] MEDS ORDERED: BISACODYL 5 MG TABLET PO PRN (14:14)
[2019-04-27] MEDS ORDERED: ONDANSETRON 4 MG/2 ML VIAL IV PRN (14:14)
[2019-04-27] MEDS ORDERED: FUROSEMIDE 40 MG/4 ML VIAL IV STA (14:19)
[2019-04-27] MEDS ORDERED: methylPREDNISolone SOD SUC 125 MG/2 ML VIAL IV STA (14:19)
[2019-04-27] MEDS ORDERED: GLUCAGON 1 MG VIAL IM PRN (14:26)
[2019-04-27] MEDS ORDERED: DEXTROSE 10% 250 ML BAG IV PRN (14:26)
[2019-04-27 14:56] LABS: Risk Ratio 2.3; Thyroid Stimulating Hormone 0.611 uIU/ml (0.358-3.74); VLDL CHOLESTEROL 21.4 MG/DL
[2019-04-27 16:11] LABS: ABG Base Excess 1.8 MMOL/L (-2.5-2.5); ABG HCO3 25.8 MMOL/L (20-26); ABG Oxygen Saturation 82.7 % (95-100); ABG PCO2 66.4 MM HG (35-48); ABG PH 7.271 (7.35-7.45); ABG PO2 55.4 MM HG (80-95); Allen Test Positive; Pt O2 Delivery Device Other
[2019-04-27] MEDS: HEPARIN 5,000 UNIT/1 ML VIAL SUBCUT SCH (16:57)
[2019-04-27] MEDS: MEROPENEM 500 MG in SODIUM CHLORIDE 0.9% 100 ML IV SCH (16:57)
[2019-04-27] MEDS: INSULIN LISPRO 100 UNIT/ML SUBCUT SCH ×2 (17:37→22:07)
[2019-04-27] MEDS ORDERED: DEXTROSE 10% 250 ML BAG IV STA (17:53)
[2019-04-27] MEDS ORDERED: VANCOMYCIN INJ 2,000 MG in SODIUM CHLORIDE 0.9% 500 ML IV ONE (18:00)
[2019-04-27] MEDS: OSELTAMIVIR 30 MG CAPSULE PO ONE (18:03)
[2019-04-27] MEDS: DEXTROSE 10% 1,000 ML IV SCH (18:32)
[2019-04-27] MEDS: ALBUTEROL/IPRATROPIUM 3 ML NEB RESP TX SCH (20:13)
[2019-04-27 20:49] LABS: ABG Base Excess 0.2 MMOL/L (-2.5-2.5); ABG HCO3 24.6 MMOL/L (20-26); ABG Oxygen Saturation 94.8 % (95-100); ABG PH 7.324 (7.35-7.45); ABG PO2 80.2 MM HG (80-95); ABG TCO2 24.5 MMOL/L (23-27); Allen Test Positive; Pt O2 Delivery Device BIPAP
[2019-04-27] MEDS: methylPREDNISolone SOD SUC 40 MG/1 ML VIAL IV SCH (20:56)
[2019-04-27] MEDS: HEPARIN LOCK FLUSH 500 UNIT/5 ML SYRINGE IV PRN (21:01)
[2019-04-28] MEDS ORDERED: hydrALAZINE 20 MG/1 ML VIAL IV PRN (00:56)
[2019-04-28] MEDS: ALBUTEROL/IPRATROPIUM 3 ML NEB RESP TX SCH ×4 (02:17→20:31)
[2019-04-28] MEDS: methylPREDNISolone SOD SUC 40 MG/1 ML VIAL IV SCH ×4 (02:41→20:55)
[2019-04-28] MEDS: HEPARIN 5,000 UNIT/1 ML VIAL SUBCUT SCH ×2 (02:42→14:14)
[2019-04-28 05:40] LABS: Basophils % 0.1 % (0.0-0.8); Hematocrit 35.5 VOL% (42.0-52.0); Hemoglobin 10.9 GM/DL (14.0-18.0); Immature Granulocytes % 1.2 %; Immature Granulocytes Absolute 0.11 #; Lymphocytes # 0.6 10*3/uL (1.4-4.0); Lymphocytes % 6.4 % (21.2-54.2); Mean Corpuscular HGB Conc 30.7 GM/DL (32-36); Mean Platelet Volume 11.3 FL (9.6-12.0); Monocytes % 4.1 % (1.7-12.7); Neutrophils % 88.2 % (38.7-73.9); Platelet Count 161 T/CUMM (130-400); Red Blood Count 3.99 MC/CUMM (3.8-5.5); Red Cell Distribution Width 17.2 % (9.3-17.3); White Blood Count 9.2 T/CUMM (4-12)
[2019-04-28 06:09] LABS: Calcium 8.8 MG/DL (8.5-10.1); Osmolality,Calculated 274.7 MOS/KG (273-304)
[2019-04-28] MEDS: PANTOPRAZOLE 40 MG TABLET PO SCH (08:09)
[2019-04-28] MEDS: HEPARIN LOCK FLUSH 500 UNIT/5 ML SYRINGE IV PRN ×2 (08:11→17:28)
[2019-04-28] MEDS: INSULIN LISPRO 100 UNIT/ML SUBCUT SCH ×4 (08:11→20:55)
[2019-04-28] MEDS: OSELTAMIVIR 30 MG CAPSULE PO ONE (08:25)
[2019-04-28] MEDS ORDERED: OSELTAMIVIR 30 MG CAPSULE PO ONE (11:00)
[2019-04-28] MEDS ORDERED: VANCOMYCIN INJ 750 MG in SODIUM CHLORIDE 0.9% 250 ML IV PRN (11:16)
[2019-04-28] MEDS: MEROPENEM 500 MG in SODIUM CHLORIDE 0.9% 100 ML IV SCH (16:58)
[2019-04-28] MEDS: DEXTROSE 10% 1,000 ML IV SCH (17:10)
[2019-04-29] MEDS: ALBUTEROL/IPRATROPIUM 3 ML NEB RESP TX SCH ×4 (01:45→19:43)
[2019-04-29] MEDS: HEPARIN 5,000 UNIT/1 ML VIAL SUBCUT SCH ×2 (02:53→15:35)
[2019-04-29] MEDS: methylPREDNISolone SOD SUC 40 MG/1 ML VIAL IV SCH ×3 (02:53→15:35)
[2019-04-29] MEDS: INSULIN LISPRO 100 UNIT/ML SUBCUT SCH ×4 (08:47→21:10)
[2019-04-29] MEDS: PANTOPRAZOLE 40 MG TABLET PO SCH (08:47)
[2019-04-29] MEDS ORDERED: VANCOMYCIN INJ 750 MG in SODIUM CHLORIDE 0.9% 250 ML IV ONE (17:00)
[2019-04-29] MEDS: DEXTROSE 10% 1,000 ML IV SCH (17:57)
[2019-04-29] MEDS: MEROPENEM 500 MG in SODIUM CHLORIDE 0.9% 100 ML IV SCH (20:25)
[2019-04-29] MEDS: OSELTAMIVIR 30 MG CAPSULE PO SCH (21:10)
[2019-04-30] MEDS: ALBUTEROL/IPRATROPIUM 3 ML NEB RESP TX SCH ×4 (01:52→20:37)
[2019-04-30] MEDS: HEPARIN 5,000 UNIT/1 ML VIAL SUBCUT SCH ×2 (03:46→15:17)
[2019-04-30] MEDS: methylPREDNISolone SOD SUC 40 MG/1 ML VIAL IV SCH ×2 (03:46→15:18)
[2019-04-30 05:17] LABS: Basophils # 0.1 10*3/uL (0.0-0.2); Basophils % 0.8 % (0.0-0.8); Hematocrit 34.5 VOL% (42.0-52.0); Immature Granulocytes % 5.9 %; Immature Granulocytes Absolute 0.74 #; Lymphocytes % 7.8 % (21.2-54.2); Mean Corpuscular HGB Conc 31.9 GM/DL (32-36); Mean Corpuscular Volume 86.5 FL (87-102); Mean Platelet Volume 10.7 FL (9.6-12.0); NRBC # 0.22 10*3/uL; Neutrophils % 73.5 % (38.7-73.9); Platelet Count 193 T/CUMM (130-400); Red Blood Count 3.99 MC/CUMM (3.8-5.5); Red Cell Distribution Width 16.9 % (9.3-17.3); White Blood Count 12.6 T/CUMM (4-12)
[2019-04-30 05:36] LABS: Calcium 8.5 MG/DL (8.5-10.1); Osmolality,Calculated 277.9 MOS/KG (273-304)
[2019-04-30 05:56] LABS: Anisocytosis 1+; Hypochromasia 1+; Lymphocytes 14 % (20-55); Nucleated Red Blood Cells 2 (0-5); Segmented Neutrophils 80 % (50-85); Total Cells Counted 100
[2019-04-30 05:57] LABS: Ovalocytes 1+; Platelet Estimate Adequate; Smudge Cells 1+
[2019-04-30] MEDS: INSULIN LISPRO 100 UNIT/ML SUBCUT SCH ×4 (07:13→23:26)
[2019-04-30] MEDS: PANTOPRAZOLE 40 MG TABLET PO SCH (08:20)
[2019-04-30] MEDS ORDERED: methylPREDNISolone SOD SUC 40 MG/1 ML VIAL IV SCH (11:55)
[2019-04-30] MEDS: HEPARIN 10,000 UNIT/10 ML VIAL IV PRN ×2 (15:19→15:30)
[2019-04-30] MEDS: guaiFENesin/DM ER 600-30 MG TABLET PO PRN (15:20)
[2019-04-30] MEDS: MEROPENEM 500 MG in SODIUM CHLORIDE 0.9% 100 ML IV SCH (20:52)
[2019-04-30] MEDS: HEPARIN 10,000 UNIT/10 ML VIAL IV SCH (23:27)
[2019-05-01] MEDS: ALBUTEROL/IPRATROPIUM 3 ML NEB RESP TX SCH ×4 (02:20→19:55)
[2019-05-01] MEDS: HEPARIN 5,000 UNIT/1 ML VIAL SUBCUT SCH ×2 (02:27→15:31)
[2019-05-01] MEDS: methylPREDNISolone SOD SUC 40 MG/1 ML VIAL IV SCH ×2 (02:44→15:31)
[2019-05-01 05:33] LABS: Basophils % 0.2 % (0.0-0.8); Hematocrit 35.1 VOL% (42.0-52.0); Immature Granulocytes % 10.3 %; Immature Granulocytes Absolute 1.38 #; Lymphocytes # 1.1 10*3/uL (1.4-4.0); Lymphocytes % 8.5 % (21.2-54.2); Mean Corpuscular HGB Conc 31.3 GM/DL (32-36); Mean Corpuscular Volume 87.3 FL (87-102); Mean Platelet Volume 11.4 FL (9.6-12.0); Monocytes % 10.9 % (1.7-12.7); NRBC # 0.28 10*3/uL; Neutrophils % 70.1 % (38.7-73.9); Platelet Count 227 T/CUMM (130-400); Red Blood Count 4.02 MC/CUMM (3.8-5.5); Red Cell Distribution Width 17.2 % (9.3-17.3); White Blood Count 13.4 T/CUMM (4-12)
[2019-05-01 06:04] LABS: Band Neutrophils 1 % (0-10); Hypochromasia 1+; Lymphocytes 11 % (20-55); Nucleated Red Blood Cells 2 (0-5); Ovalocytes Slight; Platelet Estimate Adequate; Segmented Neutrophils 78 % (50-85); Total Cells Counted 100
[2019-05-01 06:09] LABS: Calcium 8.5 MG/DL (8.5-10.1); Osmolality,Calculated 289.9 MOS/KG (273-304)
[2019-05-01] MEDS: PANTOPRAZOLE 40 MG TABLET PO SCH (08:37)
[2019-05-01] MEDS: INSULIN LISPRO 100 UNIT/ML SUBCUT SCH ×4 (08:37→22:34)
[2019-05-01] MEDS: HEPARIN 10,000 UNIT/10 ML VIAL IV PRN (15:32)
[2019-05-01] MEDS: MEROPENEM 500 MG in SODIUM CHLORIDE 0.9% 100 ML IV SCH (22:34)
[2019-05-01] MEDS: OSELTAMIVIR 30 MG CAPSULE PO SCH (22:40)
[2019-05-01] MEDS: HEPARIN 10,000 UNIT/10 ML VIAL IV SCH (23:11)
[2019-05-02] MEDS: ALBUTEROL/IPRATROPIUM 3 ML NEB RESP TX SCH ×4 (00:49→19:46)
[2019-05-02] MEDS: methylPREDNISolone SOD SUC 40 MG/1 ML VIAL IV SCH ×2 (03:00→14:41)
[2019-05-02] MEDS: HEPARIN 5,000 UNIT/1 ML VIAL SUBCUT SCH ×2 (03:01→14:43)
[2019-05-02] MEDS: INSULIN LISPRO 100 UNIT/ML SUBCUT SCH ×4 (08:10→21:13)
[2019-05-02] MEDS: PANTOPRAZOLE 40 MG TABLET PO SCH (09:39)
[2019-05-02] MEDS: HEPARIN 10,000 UNIT/10 ML VIAL IV PRN (14:43)
[2019-05-02] MEDS: MEROPENEM 500 MG in SODIUM CHLORIDE 0.9% 100 ML IV SCH (21:13)
[2019-05-02] MEDS: guaiFENesin/DM ER 600-30 MG TABLET PO PRN (21:13)
[2019-05-03] MEDS: ALBUTEROL/IPRATROPIUM 3 ML NEB RESP TX SCH ×3 (00:47→13:59)
[2019-05-03] MEDS: HEPARIN 5,000 UNIT/1 ML VIAL SUBCUT SCH (02:12)
[2019-05-03] MEDS: methylPREDNISolone SOD SUC 40 MG/1 ML VIAL IV SCH (02:12)
[2019-05-03] MEDS: HEPARIN 10,000 UNIT/10 ML VIAL IV PRN (02:21)
[2019-05-03] MEDS: INSULIN LISPRO 100 UNIT/ML SUBCUT SCH ×2 (07:42→13:41)
[2019-05-03] MEDS: PANTOPRAZOLE 40 MG TABLET PO SCH (09:10)
[2019-05-03 13:53] VITALS: BP 136/72
== END 2019-05-03 16:25 | disposition home health service (06) | DRG 189 ==
LOC: EDUNIT# → EDBD → N.ED 12:12 → SUATTDRO 14:14 → N.EDINP 14:14 → SUPCPDRO 14:14 → N.CC 15:19 → N.5E 04-30 17:17
PROVIDERS: ADMIT Internal Medicine; ATTEND Internal Medicine Geriatric Medicine

== ENCOUNTER 2019-12-04 00:35 | Inpatient (IN) ==
[2019-12-04] MEDS ORDERED: FAMOTIDINE 20 MG/2 ML VIAL IV STA (01:18)
[2019-12-04] MEDS ORDERED: diphenhydrAMINE 50 MG/1 ML VIAL IV STA (01:18)
[2019-12-04] MEDS ORDERED: methylPREDNISolone SOD SUC 125 MG/2 ML VIAL IV STA (01:18)
[2019-12-04 02:23] LABS: Basophils # 0.1 10*3/uL (0.0-0.2); Basophils % 0.4 % (0.0-0.8); Eosinophils % 0.3 % (0.00-10.9); Hematocrit 34.6 VOL% (42.0-52.0); Hemoglobin 10.8 GM/DL (14.0-18.0); Immature Granulocytes % 0.7 %; Lymphocytes % 6.8 % (21.2-54.2); Mean Corpuscular HGB Conc 31.2 GM/DL (32-36); Mean Corpuscular Volume 85.4 FL (87-102); Mean Platelet Volume 10.5 FL (9.6-12.0); Monocytes % 14.9 % (1.7-12.7); Neutrophils % 76.9 % (38.7-73.9); Platelet Count 236 T/CUMM (130-400); Red Blood Count 4.05 MC/CUMM (3.8-5.5); Red Cell Distribution Width 18.7 % (9.3-17.3); White Blood Count 14.9 T/CUMM (4-12)
[2019-12-04] MEDS ORDERED: VANCOMYCIN INJ 1,000 MG in SODIUM CHLORIDE 0.9% 250 ML IV STA (02:26)
[2019-12-04 02:41] LABS: INR 1.2; PT Patient Result 12.4 SECS (9.8-11.9); Partial Thromboplastin Time 28.9 SECS (23.9-33.8)
[2019-12-04 02:55] LABS: Alanine Aminotransferase 15 U/L (16-61); Albumin 3.2 G/DL (3.4-5.0); Alkaline Phosphatase 60 U/L (45-117); Aspartate Amino Transferase 12 U/L (0-37); Blood Urea Nitrogen 34 MG/DL (7-18); Calcium 8.8 MG/DL (8.5-10.1); Estimated Glom Filtration Rate 9 ML/MIN; Glucose 92 MG/DL (74-106); Osmolality,Calculated 265.9 MOS/KG (273-304); Total Protein 8.5 G/DL (6.4-8.3)
[2019-12-04 03:02] LABS: Troponin I 0.048 NG/ML (0.00-0.045)
[2019-12-04 03:06] LABS: Free T4 (Free Thyroxine) 1.32 NG/DL (0.76-1.46); Thyroid Stimulating Hormone 1.77 uIU/ml (0.358-3.74)
[2019-12-04] MEDS ORDERED: ONDANSETRON 4 MG/2 ML VIAL IV PRN (03:54)
[2019-12-04] MEDS ORDERED: ZALEPLON 5 MG CAPSULE PO PRN (03:54)
[2019-12-04] MEDS ORDERED: DEXTROSE 50% 25 GM/50 ML VIAL IV PRN ×2 (03:54)
[2019-12-04] MEDS ORDERED: GLUCAGON 1 MG VIAL IM PRN (03:54)
[2019-12-04] MEDS: HEPARIN 5,000 UNIT/1 ML VIAL SUBCUT SCH ×3 (06:10→22:15)
[2019-12-04] MEDS: hydrALAZINE 20 MG/1 ML VIAL IV PRN (06:11)
[2019-12-04] MEDS: INSULIN REGULAR 100 UNIT/ML SUBCUT SCH ×4 (07:26→21:14)
[2019-12-04] MEDS ORDERED: VANCOMYCIN INJ 1,500 MG in SODIUM CHLORIDE 0.9% 500 ML IV ONE (09:00)
[2019-12-04] MEDS ORDERED: PANTOPRAZOLE 40 MG TABLET PO SCH (09:00)
[2019-12-04] MEDS: DILTIAZEM CD 180 MG CAPSULE PO SCH (16:39)
[2019-12-04] MEDS: FINASTERIDE 5 MG TABLET PO SCH (16:40)
[2019-12-04] MEDS: SIMVASTATIN 10 MG TABLET PO SCH (16:40)
[2019-12-04] MEDS: NON-FORMULARY MEDICATION (Sucroferric Oxyhydroxide [Velphoro] 500 MG) PO SCH ×2 (16:52→21:14)
[2019-12-04] MEDS: CLOPIDOGREL 75 MG TABLET PO SCH (16:58)
[2019-12-04] MEDS ORDERED: HEPARIN 10,000 UNIT/10 ML VIAL IV PRN (17:00)
[2019-12-04] MEDS ORDERED: VANCOMYCIN INJ 750 MG in SODIUM CHLORIDE 0.9% 250 ML IV PRN (17:00)
[2019-12-04 17:44] LABS: Troponin I 0.031 NG/ML (0.00-0.045)
[2019-12-04] MEDS: ALBUTEROL 2.5 MG/3 ML NEB RESP TX SCH (20:12)
[2019-12-04] MEDS: PANTOPRAZOLE 40 MG TABLET PO SCH (21:14)
[2019-12-04] MEDS: SERTRALINE 50 MG TABLET PO SCH (21:14)
[2019-12-05] MEDS: ALBUTEROL 2.5 MG/3 ML NEB RESP TX SCH ×5 (00:06→20:11)
[2019-12-05 05:17] LABS: Basophils # 0.1 10*3/uL (0.0-0.2); Basophils % 0.4 % (0.0-0.8); Eosinophils % 0.2 % (0.00-10.9); Hematocrit 32.5 VOL% (42.0-52.0); Hemoglobin 10.1 GM/DL (14.0-18.0); Immature Granulocytes % 0.8 %; Immature Granulocytes Absolute 0.13 #; Lymphocytes # 1.2 10*3/uL (1.4-4.0); Lymphocytes % 7.2 % (21.2-54.2); Mean Corpuscular HGB Conc 31.1 GM/DL (32-36); Mean Platelet Volume 10.8 FL (9.6-12.0); Monocytes % 12.3 % (1.7-12.7); NRBC # 0.03 10*3/uL; Neutrophils % 79.1 % (38.7-73.9); Platelet Count 237 T/CUMM (130-400); Red Blood Count 3.78 MC/CUMM (3.8-5.5); Red Cell Distribution Width 18.7 % (9.3-17.3); White Blood Count 16.4 T/CUMM (4-12)
[2019-12-05 05:24] LABS: INR 1.1; PT Patient Result 11.4 SECS (9.8-11.9)
[2019-12-05 05:37] LABS: Bilirubin,Total 1.1 MG/DL (0.2-1.0); Calcium 8.8 MG/DL (8.5-10.1); Osmolality,Calculated 274.5 MOS/KG (273-304)
[2019-12-05 05:39] LABS: Risk Ratio 2.1; VLDL CHOLESTEROL 10.4 MG/DL
[2019-12-05 05:40] LABS: Troponin I 0.029 NG/ML (0.00-0.045)
[2019-12-05] MEDS: HEPARIN 5,000 UNIT/1 ML VIAL SUBCUT SCH ×3 (06:07→21:56)
[2019-12-05] MEDS ORDERED: HEPARIN/NACL 0.9% 2 UNITS/ML 2,000 ML IV ONE (07:59)
[2019-12-05] MEDS: INSULIN REGULAR 100 UNIT/ML SUBCUT SCH ×4 (08:21→20:31)
[2019-12-05] MEDS ORDERED: VANCOMYCIN INJ 750 MG in SODIUM CHLORIDE 0.9% 250 ML IV ONE (09:00)
[2019-12-05] MEDS ORDERED: ALBUTEROL/IPRATROPIUM 3 ML NEB RESP TX ONE (11:53)
[2019-12-05] MEDS ORDERED: ALBUTEROL 2.5 MG/3 ML NEB RESP TX ONE (11:54)
[2019-12-05] MEDS ORDERED: propofoL 200 MG/20 ML VIAL IV ONE (11:56)
[2019-12-05] MEDS ORDERED: LIDOCAINE 2% 5 ML VIAL ONE (11:56)
[2019-12-05] MEDS ORDERED: SEVOFLURANE 1 UNIT/15 MINUTE INH ONE (11:56)
[2019-12-05] MEDS ORDERED: fentaNYL 100 MCG/2 ML VIAL ONE (11:56)
[2019-12-05] MEDS ORDERED: ROCURONIUM 100 MG/10 ML VIAL IV ONE (11:57)
[2019-12-05] MEDS ORDERED: NEOSTIGMINE 10 MG/10 ML VIAL ONE (11:57)
[2019-12-05] MEDS ORDERED: ETOMIDATE 40 MG/20 ML VIAL IV ONE (11:57)
[2019-12-05] MEDS ORDERED: ONDANSETRON 4 MG/2 ML VIAL ONE (11:57)
[2019-12-05] MEDS ORDERED: SUCCINYLCHOLINE 200 MG/10 ML VIAL ONE (11:57)
[2019-12-05] MEDS ORDERED: ePHEDrine 50 MG/ML VIAL ONE (11:57)
[2019-12-05 12:27] LABS: ABG Base Excess -0.6 MMOL/L (-2.5-2.5); ABG HCO3 26.9 MMOL/L (20-26); ABG Oxygen Saturation 95.6 % (95-100); ABG PCO2 58.7 MM HG (35-48); ABG PH 7.279 (7.35-7.45); ABG PO2 94.8 MM HG (80-95); ABG TCO2 28.7 MMOL/L (23-27); Allen Test Positive; Pt O2 Delivery Device Simple Mask
[2019-12-05] MEDS: DILTIAZEM CD 180 MG CAPSULE PO SCH (13:01)
[2019-12-05] MEDS: NON-FORMULARY MEDICATION (Sucroferric Oxyhydroxide [Velphoro] 500 MG) PO SCH ×3 (13:02→20:43)
[2019-12-05] MEDS: FINASTERIDE 5 MG TABLET PO SCH (13:02)
[2019-12-05] MEDS: CLOPIDOGREL 75 MG TABLET PO SCH (13:02)
[2019-12-05] MEDS: PANTOPRAZOLE 40 MG TABLET PO SCH ×2 (13:02→20:42)
[2019-12-05] MEDS: SIMVASTATIN 10 MG TABLET PO SCH (13:03)
[2019-12-05] MEDS: SERTRALINE 50 MG TABLET PO SCH (20:42)
[2019-12-05] MEDS: ACETAMINOPHEN 325 MG TABLET PO PRN (20:42)
[2019-12-06] MEDS: ALBUTEROL 2.5 MG/3 ML NEB RESP TX SCH ×6 (00:18→19:03)
[2019-12-06] MEDS: ACETAMINOPHEN 325 MG TABLET PO PRN (03:03)
[2019-12-06 04:25] LABS: Basophils # 0.1 10*3/uL (0.0-0.2); Basophils % 1.1 % (0.0-0.8); Eosinophils # 0.1 10*3/uL (0.0-0.87); Eosinophils % 1.1 % (0.00-10.9); Hematocrit 32.3 VOL% (42.0-52.0); Hemoglobin 9.8 GM/DL (14.0-18.0); Immature Granulocytes % 1.3 %; Immature Granulocytes Absolute 0.12 #; Lymphocytes # 1.2 10*3/uL (1.4-4.0); Lymphocytes % 13.4 % (21.2-54.2); Mean Corpuscular HGB Conc 30.3 GM/DL (32-36); Mean Corpuscular Volume 86.8 FL (87-102); Mean Platelet Volume 10.2 FL (9.6-12.0); Monocytes % 13.1 % (1.7-12.7); NRBC # 0.02 10*3/uL; Platelet Count 220 T/CUMM (130-400); Red Blood Count 3.72 MC/CUMM (3.8-5.5); Red Cell Distribution Width 19.1 % (9.3-17.3); White Blood Count 9.2 T/CUMM (4-12)
[2019-12-06 04:43] LABS: Calcium 8.4 MG/DL (8.5-10.1); Osmolality,Calculated 274.5 MOS/KG (273-304)
[2019-12-06 04:54] LABS: ABG Base Excess -0.3 MMOL/L (-2.5-2.5); ABG HCO3 24.2 MMOL/L (20-26); ABG Oxygen Saturation 94.8 % (95-100); ABG PCO2 50.3 MM HG (35-48); ABG PH 7.325 (7.35-7.45); ABG PO2 77.3 MM HG (80-95); ABG TCO2 24.1 MMOL/L (23-27); Allen Test Positive
[2019-12-06] MEDS: HEPARIN 5,000 UNIT/1 ML VIAL SUBCUT SCH ×3 (06:19→21:55)
[2019-12-06] MEDS: INSULIN REGULAR 100 UNIT/ML SUBCUT SCH ×4 (09:29→21:05)
[2019-12-06] MEDS: CLOPIDOGREL 75 MG TABLET PO SCH (09:30)
[2019-12-06] MEDS: PANTOPRAZOLE 40 MG TABLET PO SCH ×2 (09:30→21:05)
[2019-12-06] MEDS: DILTIAZEM CD 180 MG CAPSULE PO SCH (09:30)
[2019-12-06] MEDS: FINASTERIDE 5 MG TABLET PO SCH (09:30)
[2019-12-06] MEDS: SIMVASTATIN 10 MG TABLET PO SCH (09:30)
[2019-12-06] MEDS: NON-FORMULARY MEDICATION (Sucroferric Oxyhydroxide [Velphoro] 500 MG) PO SCH ×3 (09:30→21:05)
[2019-12-06 16:42] LABS: Hepatitis B Core IgM Quant 0.23 Index; Hepatitis B Surface Ag Quant < 0.10 Index; Hepatitis B Surface Ag Result Negative (Negative); Hepatitis C Virus Ab Quant 0.14 Index; Hepatitis C Virus Ab Result Negative (Negative)
[2019-12-06] MEDS: SERTRALINE 50 MG TABLET PO SCH (21:05)
[2019-12-07] MEDS: ALBUTEROL 2.5 MG/3 ML NEB RESP TX SCH ×6 (00:05→20:33)
[2019-12-07] MEDS: HEPARIN 5,000 UNIT/1 ML VIAL SUBCUT SCH ×3 (05:38→22:23)
[2019-12-07 06:01] LABS: Calcium 8.1 MG/DL (8.5-10.1); Osmolality,Calculated 271.7 MOS/KG (273-304)
[2019-12-07] MEDS: INSULIN REGULAR 100 UNIT/ML SUBCUT SCH ×4 (09:00→21:04)
[2019-12-07] MEDS: DILTIAZEM CD 180 MG CAPSULE PO SCH (09:16)
[2019-12-07] MEDS: NON-FORMULARY MEDICATION (Sucroferric Oxyhydroxide [Velphoro] 500 MG) PO SCH ×3 (09:17→21:04)
[2019-12-07] MEDS: PANTOPRAZOLE 40 MG TABLET PO SCH ×2 (09:17→21:04)
[2019-12-07] MEDS: CLOPIDOGREL 75 MG TABLET PO SCH (09:17)
[2019-12-07] MEDS: FINASTERIDE 5 MG TABLET PO SCH (09:17)
[2019-12-07] MEDS: SIMVASTATIN 10 MG TABLET PO SCH (09:17)
[2019-12-07] MEDS: SERTRALINE 50 MG TABLET PO SCH (21:04)
[2019-12-08 05:39] LABS: Basophils # 0.1 10*3/uL (0.0-0.2); Basophils % 0.9 % (0.0-0.8); Eosinophils # 0.2 10*3/uL (0.0-0.87); Eosinophils % 1.9 % (0.00-10.9); Hematocrit 32.5 VOL% (42.0-52.0); Hemoglobin 10.1 GM/DL (14.0-18.0); Immature Granulocytes % 3.8 %; Immature Granulocytes Absolute 0.32 #; Lymphocytes % 11.7 % (21.2-54.2); Mean Corpuscular HGB Conc 31.1 GM/DL (32-36); Mean Corpuscular Volume 84.4 FL (87-102); Mean Platelet Volume 10.7 FL (9.6-12.0); Monocytes % 14.3 % (1.7-12.7); NRBC # 0.02 10*3/uL; Neutrophils % 67.4 % (38.7-73.9); Platelet Count 241 T/CUMM (130-400); Red Blood Count 3.85 MC/CUMM (3.8-5.5); Red Cell Distribution Width 19.1 % (9.3-17.3); White Blood Count 8.5 T/CUMM (4-12)
[2019-12-08 06:04] LABS: Calcium 8.3 MG/DL (8.5-10.1); Osmolality,Calculated 275.8 MOS/KG (273-304)
[2019-12-08] MEDS: ALBUTEROL 2.5 MG/3 ML NEB RESP TX SCH ×6 (06:10→23:20)
[2019-12-08] MEDS: HEPARIN 5,000 UNIT/1 ML VIAL SUBCUT SCH ×2 (06:41→16:20)
[2019-12-08] MEDS: DILTIAZEM CD 180 MG CAPSULE PO SCH (08:34)
[2019-12-08] MEDS: PANTOPRAZOLE 40 MG TABLET PO SCH ×2 (08:35→21:24)
[2019-12-08] MEDS: NON-FORMULARY MEDICATION (Sucroferric Oxyhydroxide [Velphoro] 500 MG) PO SCH ×3 (08:35→21:26)
[2019-12-08] MEDS: CLOPIDOGREL 75 MG TABLET PO SCH (08:35)
[2019-12-08] MEDS: INSULIN REGULAR 100 UNIT/ML SUBCUT SCH ×4 (08:35→21:26)
[2019-12-08] MEDS: hydrALAZINE 20 MG/1 ML VIAL IV PRN (08:35)
[2019-12-08] MEDS: FINASTERIDE 5 MG TABLET PO SCH (08:35)
[2019-12-08] MEDS: SIMVASTATIN 10 MG TABLET PO SCH (08:35)
[2019-12-08] MEDS: SERTRALINE 50 MG TABLET PO SCH (21:25)
[2019-12-09] MEDS: HEPARIN 5,000 UNIT/1 ML VIAL SUBCUT SCH ×2 (02:10→09:07)
[2019-12-09] MEDS: ALBUTEROL 2.5 MG/3 ML NEB RESP TX SCH ×4 (02:58→14:05)
[2019-12-09] MEDS: NON-FORMULARY MEDICATION (Sucroferric Oxyhydroxide [Velphoro] 500 MG) PO SCH ×2 (09:03→15:50)
[2019-12-09] MEDS: DILTIAZEM CD 180 MG CAPSULE PO SCH (09:03)
[2019-12-09] MEDS: FINASTERIDE 5 MG TABLET PO SCH (09:07)
[2019-12-09] MEDS: CLOPIDOGREL 75 MG TABLET PO SCH (09:07)
[2019-12-09] MEDS: PANTOPRAZOLE 40 MG TABLET PO SCH (09:07)
[2019-12-09] MEDS: SIMVASTATIN 10 MG TABLET PO SCH (09:07)
[2019-12-09] MEDS: INSULIN REGULAR 100 UNIT/ML SUBCUT SCH ×2 (09:07→14:13)
[2019-12-09 14:02] VITALS: BP 158/76
== END 2019-12-09 15:34 | disposition home or self-care (01) | DRG 299 ==
LOC: EDUNIT# → EDBD → N.ED 00:35 → N.EDINP 00:35 → SUATTDRO 04:35 → N.5E 16:59
PROVIDERS: ADMIT Internal Medicine; ATTEND Internal Medicine

== ENCOUNTER 2021-03-13 19:16 | Inpatient (IN) ==
[2021-03-13] MEDS ORDERED: NITROGLYCERIN SL 0.4 MG TABLET SL PRN (19:52)
[2021-03-13 20:22] LABS: Basophils # 0.1 10*3/uL (0.0-0.2); Basophils % 0.6 % (0.0-0.8); Eosinophils # 0.1 10*3/uL (0.0-0.87); Eosinophils % 0.7 % (0.00-10.9); Hemoglobin 11.9 GM/DL (14.0-18.0); Immature Granulocytes % 0.8 %; Immature Granulocytes Absolute 0.09 #; Lymphocytes # 1.1 10*3/uL (1.4-4.0); Lymphocytes % 10.1 % (21.2-54.2); Mean Corpuscular HGB Conc 30.5 GM/DL (32-36); Mean Corpuscular Volume 91.1 FL (87-102); Mean Platelet Volume 11.8 FL (9.6-12.0); Neutrophils % 74.8 % (38.7-73.9); Platelet Count 222 T/CUMM (130-400); Red Blood Count 4.28 MC/CUMM (3.8-5.5); White Blood Count 11.3 T/CUMM (4-12)
[2021-03-13 20:32] LABS: PT Patient Result 11.4 SECS (10.5-12.0)
[2021-03-13 21:08] LABS: Albumin 3.6 G/DL (3.4-5.0); Bilirubin,Total 0.8 MG/DL (0.20-1.00); Calcium 10.5 MG/DL (8.5-10.1); Osmolality,Calculated 284.7 MOS/KG (273-304); Potassium 5.2 MMOL/L (3.5-5.1); Total Protein 8.4 G/DL (6.4-8.2)
[2021-03-13] MEDS ORDERED: ALBUTEROL 2.5 MG/3 ML NEB RESP TX PRN (21:51)
[2021-03-13] MEDS ORDERED: DILTIAZEM CD 120 MG CAPSULE PO STA (23:06)
[2021-03-13] MEDS ORDERED: FUROSEMIDE 100 MG/10 ML VIAL IV STA (23:06)
[2021-03-13] MEDS: niCARdipine INJ 25 MG in SODIUM CHLORIDE 0.9% 240 ML IV SCH (23:27)
[2021-03-14] MEDS ORDERED: FUROSEMIDE 100 MG/10 ML VIAL IV STA (01:48)
[2021-03-14] MEDS: niCARdipine INJ 25 MG in SODIUM CHLORIDE 0.9% 240 ML IV SCH ×5 (02:48→22:46)
[2021-03-14 05:20] LABS: Basophils # 0.1 10*3/uL (0.0-0.2); Basophils % 0.6 % (0.0-0.8); Eosinophils # 0.1 10*3/uL (0.0-0.87); Hematocrit 35.6 VOL% (42.0-52.0); Immature Granulocytes Absolute 0.12 #; Lymphocytes % 9.1 % (21.2-54.2); Mean Corpuscular HGB Conc 30.9 GM/DL (32-36); Mean Corpuscular Volume 89.9 FL (87-102); Mean Platelet Volume 11.3 FL (9.6-12.0); Monocytes % 13.7 % (1.7-12.7); Neutrophils % 74.6 % (38.7-73.9); Platelet Count 213 T/CUMM (130-400); Red Blood Count 3.96 MC/CUMM (3.8-5.5); Red Cell Distribution Width 15.6 % (9.3-17.3); White Blood Count 11.5 T/CUMM (4-12)
[2021-03-14 05:41] LABS: Albumin 3.2 G/DL (3.4-5.0); Bilirubin,Total 0.7 MG/DL (0.20-1.00); Calcium 9.9 MG/DL (8.5-10.1); Osmolality,Calculated 277.2 MOS/KG (273-304); Potassium 4.7 MMOL/L (3.5-5.1)
[2021-03-14] MEDS ORDERED: ENOXAPARIN 100 MG/ML SYRINGE SUBCUT SCH (09:00)
[2021-03-14] MEDS: SEVELAMER CARBONATE 800 MG TABLET PO SCH ×3 (09:25→21:20)
[2021-03-14] MEDS: DILTIAZEM CD 300 MG CAPSULE PO SCH (09:25)
[2021-03-14] MEDS: INSULIN LISPRO 100 UNIT/ML SUBCUT SCH ×3 (13:32→21:47)
[2021-03-14] MEDS ORDERED: HEPARIN 10,000 UNIT/10 ML VIAL IV ONE (15:00)
[2021-03-14] MEDS: ROSUVASTATIN 20 MG TABLET PO SCH (21:20)
[2021-03-15] MEDS ORDERED: hydrALAZINE 20 MG/1 ML VIAL IV PRN (00:15)
[2021-03-15 04:10] LABS: Basophils # 0.1 10*3/uL (0.0-0.2); Basophils % 0.9 % (0.0-0.8); Eosinophils # 0.2 10*3/uL (0.0-0.87); Eosinophils % 2.5 % (0.00-10.9); Hematocrit 33.4 VOL% (42.0-52.0); Hemoglobin 10.2 GM/DL (14.0-18.0); Immature Granulocytes % 1.6 %; Immature Granulocytes Absolute 0.15 #; Lymphocytes # 1.3 10*3/uL (1.4-4.0); Lymphocytes % 13.3 % (21.2-54.2); Mean Corpuscular HGB Conc 30.5 GM/DL (32-36); Mean Corpuscular Volume 91.3 FL (87-102); Mean Platelet Volume 11.1 FL (9.6-12.0); Monocytes % 15.4 % (1.7-12.7); Neutrophils % 66.3 % (38.7-73.9); Platelet Count 198 T/CUMM (130-400); Red Blood Count 3.66 MC/CUMM (3.8-5.5); Red Cell Distribution Width 15.9 % (9.3-17.3); White Blood Count 9.5 T/CUMM (4-12)
[2021-03-15 04:32] LABS: Calcium 9.5 MG/DL (8.5-10.1); Osmolality,Calculated 275.2 MOS/KG (273-304); Potassium 4.6 MMOL/L (3.5-5.1)
[2021-03-15 04:35] LABS: Albumin 2.9 G/DL (3.4-5.0); Bilirubin,Direct 0.18 MG/DL (0.0-0.20); Bilirubin,Total 1.2 MG/DL (0.20-1.00); Total Protein 7.5 G/DL (6.4-8.2)
[2021-03-15 04:36] LABS: Risk Ratio 1.83; VLDL Cholesterol 16.8 MG/DL
[2021-03-15] MEDS: INSULIN LISPRO 100 UNIT/ML SUBCUT SCH ×4 (07:50→20:16)
[2021-03-15] MEDS: APIXABAN 5 MG TABLET PO SCH ×2 (08:04→20:17)
[2021-03-15] MEDS: SEVELAMER CARBONATE 800 MG TABLET PO SCH ×3 (08:04→18:53)
[2021-03-15] MEDS: DILTIAZEM CD 300 MG CAPSULE PO SCH (08:06)
[2021-03-15] MEDS: CYCLOBENZAPRINE 10 MG TABLET PO PRN (17:31)
[2021-03-15] MEDS: ROSUVASTATIN 20 MG TABLET PO SCH (20:17)
[2021-03-16 06:30] LABS: Calcium 9.6 MG/DL (8.5-10.1); Osmolality,Calculated 278.2 MOS/KG (273-304); Potassium 4.9 MMOL/L (3.5-5.1)
[2021-03-16] MEDS: INSULIN LISPRO 100 UNIT/ML SUBCUT SCH ×4 (07:43→20:31)
[2021-03-16] MEDS: SEVELAMER CARBONATE 800 MG TABLET PO SCH ×3 (10:27→16:08)
[2021-03-16] MEDS ORDERED: HEPARIN 10,000 UNIT/10 ML VIAL IV PRN (11:16)
[2021-03-16] MEDS: DILTIAZEM CD 300 MG CAPSULE PO SCH (13:10)
[2021-03-16] MEDS: APIXABAN 5 MG TABLET PO SCH ×2 (13:11→20:37)
[2021-03-16] MEDS: hydrALAZINE 10 MG TABLET PO SCH (20:37)
[2021-03-16] MEDS: ROSUVASTATIN 20 MG TABLET PO SCH (20:37)
[2021-03-17 05:30] LABS: Calcium 9.6 MG/DL (8.5-10.1); Osmolality,Calculated 276.2 MOS/KG (273-304); Potassium 4.9 MMOL/L (3.5-5.1)
[2021-03-17] MEDS: APIXABAN 5 MG TABLET PO SCH ×2 (09:45→20:09)
[2021-03-17] MEDS: hydrALAZINE 10 MG TABLET PO SCH ×4 (09:45→20:10)
[2021-03-17] MEDS: POLYETHYLENE GLYCOL POWDER 17 GM PACK PO SCH (09:45)
[2021-03-17] MEDS: PANTOPRAZOLE 40 MG TABLET PO SCH (09:46)
[2021-03-17] MEDS: SEVELAMER CARBONATE 800 MG TABLET PO SCH ×3 (09:46→17:02)
[2021-03-17] MEDS: INSULIN LISPRO 100 UNIT/ML SUBCUT SCH ×4 (09:51→20:10)
[2021-03-17] MEDS: DILTIAZEM CD 300 MG CAPSULE PO SCH (09:52)
[2021-03-17] MEDS: LOSARTAN 25 MG TABLET PO SCH (18:20)
[2021-03-17] MEDS: CYCLOBENZAPRINE 10 MG TABLET PO PRN (20:09)
[2021-03-17] MEDS: ROSUVASTATIN 20 MG TABLET PO SCH (20:10)
[2021-03-18 06:13] LABS: Basophils # 0.1 10*3/uL (0.0-0.2); Basophils % 0.7 % (0.0-0.8); Eosinophils # 0.3 10*3/uL (0.0-0.87); Eosinophils % 2.8 % (0.00-10.9); Hemoglobin 10.4 GM/DL (14.0-18.0); Immature Granulocytes % 1.1 %; Lymphocytes # 1.3 10*3/uL (1.4-4.0); Lymphocytes % 13.7 % (21.2-54.2); Mean Corpuscular HGB Conc 31.5 GM/DL (32-36); Mean Corpuscular Volume 88.7 FL (87-102); Mean Platelet Volume 11.4 FL (9.6-12.0); Monocytes % 11.3 % (1.7-12.7); Neutrophils % 70.4 % (38.7-73.9); Platelet Count 213 T/CUMM (130-400); Red Blood Count 3.72 MC/CUMM (3.8-5.5); Red Cell Distribution Width 15.8 % (9.3-17.3); White Blood Count 9.1 T/CUMM (4-12)
[2021-03-18 06:30] LABS: Osmolality,Calculated 283.2 MOS/KG (273-304); Potassium 5.2 MMOL/L (3.5-5.1)
[2021-03-18] MEDS: INSULIN LISPRO 100 UNIT/ML SUBCUT SCH ×4 (07:40→21:54)
[2021-03-18] MEDS: LOSARTAN 25 MG TABLET PO SCH (08:43)
[2021-03-18] MEDS: DILTIAZEM CD 300 MG CAPSULE PO SCH (08:43)
[2021-03-18] MEDS: APIXABAN 5 MG TABLET PO SCH ×2 (08:43→20:18)
[2021-03-18] MEDS: SEVELAMER CARBONATE 800 MG TABLET PO SCH ×3 (08:43→17:56)
[2021-03-18] MEDS: PANTOPRAZOLE 40 MG TABLET PO SCH (08:43)
[2021-03-18] MEDS: hydrALAZINE 10 MG TABLET PO SCH ×3 (08:43→17:56)
[2021-03-18] MEDS: POLYETHYLENE GLYCOL POWDER 17 GM PACK PO SCH (08:43)
[2021-03-18] MEDS ORDERED: IRBESARTAN 150 MG TABLET PO SCH (09:00)
[2021-03-18] MEDS: hydrALAZINE 25 MG TABLET PO SCH (20:18)
[2021-03-18] MEDS: ROSUVASTATIN 20 MG TABLET PO SCH (20:18)
[2021-03-19 06:41] LABS: Calcium 9.2 MG/DL (8.5-10.1); Osmolality,Calculated 278.1 MOS/KG (273-304); Potassium 5.3 MMOL/L (3.5-5.1)
[2021-03-19] MEDS: INSULIN LISPRO 100 UNIT/ML SUBCUT SCH ×4 (07:15→22:00)
[2021-03-19] MEDS: POLYETHYLENE GLYCOL POWDER 17 GM PACK PO SCH (08:41)
[2021-03-19] MEDS: SEVELAMER CARBONATE 800 MG TABLET PO SCH ×3 (08:42→16:32)
[2021-03-19] MEDS: DILTIAZEM CD 300 MG CAPSULE PO SCH (08:42)
[2021-03-19] MEDS: PANTOPRAZOLE 40 MG TABLET PO SCH (08:43)
[2021-03-19] MEDS: APIXABAN 5 MG TABLET PO SCH ×2 (08:43→21:59)
[2021-03-19] MEDS: LOSARTAN 25 MG TABLET PO SCH (08:43)
[2021-03-19] MEDS: hydrALAZINE 25 MG TABLET PO SCH ×3 (08:43→21:59)
[2021-03-19] MEDS ORDERED: SODIUM POLYSTYRENE SULFATE 15 GM/60 ML BOTTLE PO ONE (09:51)
[2021-03-19] MEDS: ROSUVASTATIN 20 MG TABLET PO SCH (21:59)
[2021-03-20 08:43] LABS: Basophils # 0.1 10*3/uL (0.0-0.2); Basophils % 0.7 % (0.0-0.8); Eosinophils # 0.2 10*3/uL (0.0-0.87); Eosinophils % 2.3 % (0.00-10.9); Hematocrit 31.8 VOL% (42.0-52.0); Hemoglobin 10.1 GM/DL (14.0-18.0); Immature Granulocytes % 1.3 %; Immature Granulocytes Absolute 0.11 #; Lymphocytes # 1.4 10*3/uL (1.4-4.0); Mean Corpuscular HGB Conc 31.8 GM/DL (32-36); Mean Corpuscular Volume 89.1 FL (87-102); Mean Platelet Volume 10.3 FL (9.6-12.0); Monocytes % 12.9 % (1.7-12.7); Neutrophils % 65.8 % (38.7-73.9); Platelet Count 204 T/CUMM (130-400); Red Blood Count 3.57 MC/CUMM (3.8-5.5); Red Cell Distribution Width 16.1 % (9.3-17.3); White Blood Count 8.3 T/CUMM (4-12)
[2021-03-20 08:57] LABS: Calcium 9.5 MG/DL (8.5-10.1); Osmolality,Calculated 280.4 MOS/KG (273-304); Potassium 5.8 MMOL/L (3.5-5.1)
[2021-03-20] MEDS ORDERED: SODIUM POLYSTYRENE SULFATE 15 GM/60 ML BOTTLE PO SCH (10:00)
[2021-03-20] MEDS: POLYETHYLENE GLYCOL POWDER 17 GM PACK PO SCH (10:50)
[2021-03-20] MEDS: hydrALAZINE 25 MG TABLET PO SCH ×3 (10:51→21:04)
[2021-03-20] MEDS: LOSARTAN 25 MG TABLET PO SCH (10:54)
[2021-03-20] MEDS: SEVELAMER CARBONATE 800 MG TABLET PO SCH ×3 (10:54→16:53)
[2021-03-20] MEDS: APIXABAN 5 MG TABLET PO SCH ×2 (10:55→21:04)
[2021-03-20] MEDS: DILTIAZEM CD 300 MG CAPSULE PO SCH (10:55)
[2021-03-20] MEDS: INSULIN LISPRO 100 UNIT/ML SUBCUT SCH ×4 (10:56→21:01)
[2021-03-20] MEDS: PANTOPRAZOLE 40 MG TABLET PO SCH (10:56)
[2021-03-20] MEDS ORDERED: diphenhydrAMINE CAP 25 MG CAPSULE PO PRN (14:46)
[2021-03-20] MEDS ORDERED: SODIUM BICARBONATE 50 MEQ/50 ML VIAL IV ONE (15:48)
[2021-03-20] MEDS ORDERED: DEXTROSE 50% 25 GM/50 ML VIAL IV ONE (15:48)
[2021-03-20] MEDS ORDERED: INSULIN REGULAR 100 UNIT/ML IV ONE (15:48)
[2021-03-20] MEDS ORDERED: CALCIUM GLUCONATE 1,000 MG in SODIUM CHLORIDE 0.9% 100 ML IV ONE (15:48)
[2021-03-20] MEDS ORDERED: INSULIN REGULAR 10 UNIT, CALCIUM GLUCONATE 1,000 MG in DEXTROSE 10% 250 ML IV ONE (16:02)
[2021-03-20] MEDS: SODIUM ZIRCONIUM CYCLOSILICATE 10 GM PACK PO SCH ×2 (16:05→21:07)
[2021-03-20] MEDS: ROSUVASTATIN 20 MG TABLET PO SCH (21:04)
[2021-03-21 06:31] LABS: Calcium 9.6 MG/DL (8.5-10.1); Osmolality,Calculated 275.1 MOS/KG (273-304); Potassium 5.9 MMOL/L (3.5-5.1)
[2021-03-21 08:07] LABS: Basophils # 0.1 10*3/uL (0.0-0.2); Basophils % 0.9 % (0.0-0.8); Eosinophils # 0.2 10*3/uL (0.0-0.87); Eosinophils % 2.6 % (0.00-10.9); Hematocrit 30.2 VOL% (42.0-52.0); Hemoglobin 9.6 GM/DL (14.0-18.0); Immature Granulocytes % 1.2 %; Immature Granulocytes Absolute 0.11 #; Lymphocytes # 1.3 10*3/uL (1.4-4.0); Lymphocytes % 14.2 % (21.2-54.2); Mean Corpuscular HGB Conc 31.8 GM/DL (32-36); Mean Corpuscular Volume 88.3 FL (87-102); Monocytes % 11.9 % (1.7-12.7); Neutrophils % 69.2 % (38.7-73.9); Platelet Count 216 T/CUMM (130-400); Red Blood Count 3.42 MC/CUMM (3.8-5.5); Red Cell Distribution Width 15.9 % (9.3-17.3)
[2021-03-21] MEDS: INSULIN LISPRO 100 UNIT/ML SUBCUT SCH (14:02)
[2021-03-21 14:34] VITALS: BP 151/78
[2021-03-22] MEDS ORDERED: APIXABAN 5 MG TABLET PO SCH (09:00)
== END 2021-03-21 15:14 | disposition home or self-care (01) | DRG 291 ==
LOC: N.ED 19:16 → N.EDINP 21:51 → SUATTDRO 21:51 → N.EDINP 03-14 02:20 → N.ICU 03-14 02:37 → N.5E 03-15 18:43
PROVIDERS: ADMIT Internal Medicine; ATTEND Internal Medicine

== ENCOUNTER 2021-06-07 11:50 | Inpatient (IN) ==
[2021-06-07 12:25] LABS: Basophils # 0.1 10*3/uL (0.0-0.2); Basophils % 0.7 % (0.0-0.8); Eosinophils # 0.2 10*3/uL (0.0-0.87); Eosinophils % 2.1 % (0.00-10.9); Hematocrit 31.9 VOL% (42.0-52.0); Hemoglobin 9.8 GM/DL (14.0-18.0); Immature Granulocytes % 0.7 %; Immature Granulocytes Absolute 0.06 #; Lymphocytes # 1.3 10*3/uL (1.4-4.0); Lymphocytes % 15.6 % (21.2-54.2); Mean Corpuscular HGB Conc 30.7 GM/DL (32-36); Mean Corpuscular Volume 88.1 FL (87-102); Mean Platelet Volume 10.3 FL (9.6-12.0); Monocytes % 14.9 % (1.7-12.7); NRBC # 0.03 10*3/uL; Platelet Count 318 T/CUMM (130-400); Red Blood Count 3.62 MC/CUMM (3.8-5.5); Red Cell Distribution Width 17.1 % (9.3-17.3)
[2021-06-07 12:46] LABS: Albumin 3.3 G/DL (3.4-5.0); Bilirubin,Total 0.5 MG/DL (0.20-1.00); Calcium 9.8 MG/DL (8.5-10.1); Osmolality,Calculated 277.8 MOS/KG (273-304); Total Protein 8.4 G/DL (6.4-8.2)
[2021-06-07 12:50] LABS: Potassium 6.4 MMOL/L (3.5-5.1)
[2021-06-07] MEDS ORDERED: GLUCAGON 1 MG VIAL IM PRN (13:45)
[2021-06-07] MEDS ORDERED: hydrALAZINE 20 MG/1 ML VIAL IV PRN (13:45)
[2021-06-07] MEDS ORDERED: ONDANSETRON 4 MG/2 ML VIAL IV PRN (13:45)
[2021-06-07] MEDS ORDERED: INSULIN REGULAR 10 UNIT, CALCIUM GLUCONATE 1,000 MG in DEXTROSE 10% 250 ML IV ONE (14:00)
[2021-06-07] MEDS ORDERED: DEXTROSE 10% 250 ML BAG IV PRN (14:09)
[2021-06-07] MEDS ORDERED: SODIUM ZIRCONIUM CYCLOSILICATE 10 GM PACK PO SCH (15:00)
[2021-06-07] MEDS ORDERED: HEPARIN 10,000 UNIT/10 ML VIAL IV ONE (16:15)
[2021-06-07] MEDS: INSULIN LISPRO 100 UNIT/ML SUBCUT SCH ×2 (19:31→20:55)
[2021-06-07] MEDS: SEVELAMER CARBONATE 800 MG TABLET PO SCH ×2 (19:31→20:55)
[2021-06-07] MEDS: ROSUVASTATIN 20 MG TABLET PO SCH (20:55)
[2021-06-07] MEDS: HEPARIN 5,000 UNIT/1 ML VIAL SUBCUT SCH (20:55)
[2021-06-07] MEDS: SODIUM ZIRCONIUM CYCLOSILICATE 10 GM PACK PO SCH (20:55)
[2021-06-08] MEDS ORDERED: diphenhydrAMINE CAP 25 MG CAPSULE PO PRN (04:48)
[2021-06-08 06:35] LABS: Basophils # 0.1 10*3/uL (0.0-0.2); Basophils % 0.8 % (0.0-0.8); Eosinophils # 0.2 10*3/uL (0.0-0.87); Eosinophils % 2.9 % (0.00-10.9); Hemoglobin 8.4 GM/DL (14.0-18.0); Immature Granulocytes Absolute 0.07 #; Lymphocytes # 1.3 10*3/uL (1.4-4.0); Lymphocytes % 17.5 % (21.2-54.2); Mean Corpuscular Volume 90.6 FL (87-102); Mean Platelet Volume 10.4 FL (9.6-12.0); Monocytes % 17.6 % (1.7-12.7); NRBC # 0.03 10*3/uL; Neutrophils % 60.2 % (38.7-73.9); Platelet Count 263 T/CUMM (130-400); Red Blood Count 3.09 MC/CUMM (3.8-5.5); Red Cell Distribution Width 17.3 % (9.3-17.3); White Blood Count 7.1 T/CUMM (4-12)
[2021-06-08 06:48] LABS: Calcium 9.2 MG/DL (8.5-10.1); Osmolality,Calculated 273.5 MOS/KG (273-304); Potassium 5.8 MMOL/L (3.5-5.1)
[2021-06-08 07:04] LABS: Band Neutrophils 1 % (0-10); Eosinophils 2 % (0-10); Lymphocytes 19 % (20-55); Segmented Neutrophils 64 % (50-85); Total Cells Counted 100
[2021-06-08 07:05] LABS: Hypochromia 1+; Microcytosis 1+; Platelet Estimate Adequate
[2021-06-08] MEDS: INSULIN LISPRO 100 UNIT/ML SUBCUT SCH ×3 (07:44→16:58)
[2021-06-08] MEDS: SODIUM ZIRCONIUM CYCLOSILICATE 10 GM PACK PO SCH ×2 (09:05→16:51)
[2021-06-08] MEDS: PANTOPRAZOLE 40 MG TABLET PO SCH (09:06)
[2021-06-08] MEDS: ASPIRIN EC 81 MG TABLET PO SCH (09:06)
[2021-06-08] MEDS: HEPARIN 5,000 UNIT/1 ML VIAL SUBCUT SCH ×2 (09:06→21:45)
[2021-06-08] MEDS: SEVELAMER CARBONATE 800 MG TABLET PO SCH ×3 (09:06→17:00)
[2021-06-08] MEDS ORDERED: HEPARIN 10,000 UNIT/10 ML VIAL IV SCH (11:45)
[2021-06-08 12:02] LABS: % Iron Saturation 14.2 % (18-50)
[2021-06-08 13:17] LABS: Folate 6.56 NG/ML (5.38-24.0)
[2021-06-08] MEDS: DILTIAZEM CD 180 MG CAPSULE PO SCH (16:57)
[2021-06-08] MEDS: ROSUVASTATIN 20 MG TABLET PO SCH (21:44)
[2021-06-09 06:40] LABS: Basophils # 0.1 10*3/uL (0.0-0.2); Eosinophils # 0.2 10*3/uL (0.0-0.87); Eosinophils % 2.7 % (0.00-10.9); Hematocrit 28.6 VOL% (42.0-52.0); Hemoglobin 8.5 GM/DL (14.0-18.0); Immature Granulocytes % 1.1 %; Immature Granulocytes Absolute 0.07 #; Lymphocytes # 1.6 10*3/uL (1.4-4.0); Lymphocytes % 24.9 % (21.2-54.2); Mean Corpuscular HGB Conc 29.7 GM/DL (32-36); Mean Corpuscular Volume 90.8 FL (87-102); Mean Platelet Volume 11.4 FL (9.6-12.0); Monocytes % 16.9 % (1.7-12.7); NRBC # 0.02 10*3/uL; Neutrophils % 53.4 % (38.7-73.9); Platelet Count 242 T/CUMM (130-400); Red Blood Count 3.15 MC/CUMM (3.8-5.5); Red Cell Distribution Width 17.2 % (9.3-17.3); White Blood Count 6.3 T/CUMM (4-12)
[2021-06-09 07:00] LABS: Calcium 8.9 MG/DL (8.5-10.1); Osmolality,Calculated 265.8 MOS/KG (273-304)
[2021-06-09 07:02] LABS: Eosinophils 1 % (0-10); Hypochromia 1+; Lymphocytes 28 % (20-55); Microcytosis 1+; Platelet Estimate Adequate; Segmented Neutrophils 61 % (50-85); Total Cells Counted 100
[2021-06-09] MEDS: DILTIAZEM CD 180 MG CAPSULE PO SCH (09:02)
[2021-06-09] MEDS: SEVELAMER CARBONATE 800 MG TABLET PO SCH ×3 (09:02→16:14)
[2021-06-09] MEDS: PANTOPRAZOLE 40 MG TABLET PO SCH (09:03)
[2021-06-09] MEDS: ASPIRIN EC 81 MG TABLET PO SCH (09:03)
[2021-06-09] MEDS: HEPARIN 5,000 UNIT/1 ML VIAL SUBCUT SCH ×2 (09:04→20:53)
[2021-06-09 10:29] LABS: Hepatitis B Surface Ag Quant 0.15 Index; Hepatitis B Surface Ag Result Non-Reactive (NonReactive)
[2021-06-09] MEDS: ROSUVASTATIN 20 MG TABLET PO SCH (20:53)
[2021-06-10 05:45] LABS: Basophils # 0.1 10*3/uL (0.0-0.2); Basophils % 1.1 % (0.0-0.8); Eosinophils # 0.2 10*3/uL (0.0-0.87); Eosinophils % 2.4 % (0.00-10.9); Hematocrit 26.8 VOL% (42.0-52.0); Hemoglobin 8.2 GM/DL (14.0-18.0); Immature Granulocytes % 1.1 %; Immature Granulocytes Absolute 0.07 #; Lymphocytes # 1.2 10*3/uL (1.4-4.0); Lymphocytes % 19.1 % (21.2-54.2); Mean Corpuscular HGB Conc 30.6 GM/DL (32-36); Mean Corpuscular Volume 89.9 FL (87-102); Mean Platelet Volume 10.3 FL (9.6-12.0); Monocytes % 15.6 % (1.7-12.7); Neutrophils % 60.7 % (38.7-73.9); Platelet Count 225 T/CUMM (130-400); Red Blood Count 2.98 MC/CUMM (3.8-5.5); Red Cell Distribution Width 17.2 % (9.3-17.3); White Blood Count 6.1 T/CUMM (4-12)
[2021-06-10 06:04] LABS: Calcium 8.6 MG/DL (8.5-10.1); Osmolality,Calculated 269.4 MOS/KG (273-304); Potassium 4.7 MMOL/L (3.5-5.1)
[2021-06-10 06:13] LABS: Eosinophils 3 % (0-10); Hypochromia 1+; Lymphocytes 19 % (20-55); Microcytosis 1+; Platelet Estimate Adequate; Segmented Neutrophils 65 % (50-85); Total Cells Counted 100
[2021-06-10] MEDS: PANTOPRAZOLE 40 MG TABLET PO SCH (08:38)
[2021-06-10] MEDS: HEPARIN 5,000 UNIT/1 ML VIAL SUBCUT SCH ×2 (08:38→21:13)
[2021-06-10] MEDS: SEVELAMER CARBONATE 800 MG TABLET PO SCH ×3 (08:38→18:55)
[2021-06-10] MEDS: DILTIAZEM CD 180 MG CAPSULE PO SCH (08:38)
[2021-06-10] MEDS: ASPIRIN EC 81 MG TABLET PO SCH (08:38)
[2021-06-10] MEDS ORDERED: INSULIN NPH 100 UNIT/ML SUBCUT ONE (12:14)
[2021-06-10] MEDS ORDERED: INFLUENZA VIRUS VACCINE 0.5 ML SYRINGE IM ONE (15:01)
[2021-06-10] MEDS: ROSUVASTATIN 20 MG TABLET PO SCH (21:13)
[2021-06-11 05:02] LABS: Basophils # 0.1 10*3/uL (0.0-0.2); Basophils % 1.1 % (0.0-0.8); Eosinophils # 0.2 10*3/uL (0.0-0.87); Eosinophils % 2.8 % (0.00-10.9); Hematocrit 25.9 VOL% (42.0-52.0); Immature Granulocytes % 1.4 %; Immature Granulocytes Absolute 0.09 #; Lymphocytes # 1.4 10*3/uL (1.4-4.0); Mean Corpuscular HGB Conc 30.9 GM/DL (32-36); Mean Corpuscular Volume 89.6 FL (87-102); Mean Platelet Volume 10.7 FL (9.6-12.0); Monocytes % 14.8 % (1.7-12.7); Neutrophils % 58.9 % (38.7-73.9); Platelet Count 215 T/CUMM (130-400); Red Blood Count 2.89 MC/CUMM (3.8-5.5); Red Cell Distribution Width 17.2 % (9.3-17.3); White Blood Count 6.5 T/CUMM (4-12)
[2021-06-11 05:50] LABS: Calcium 9.2 MG/DL (8.5-10.1); Osmolality,Calculated 274.5 MOS/KG (273-304); Potassium 4.8 MMOL/L (3.5-5.1)
[2021-06-11] MEDS: PANTOPRAZOLE 40 MG TABLET PO SCH (13:21)
[2021-06-11] MEDS: DILTIAZEM CD 180 MG CAPSULE PO SCH (13:21)
[2021-06-11] MEDS: SEVELAMER CARBONATE 800 MG TABLET PO SCH ×2 (13:26→16:53)
[2021-06-11] MEDS: HEPARIN 5,000 UNIT/1 ML VIAL SUBCUT SCH ×2 (13:26→20:26)
[2021-06-11] MEDS: ASPIRIN EC 81 MG TABLET PO SCH (13:26)
[2021-06-11] MEDS: ROSUVASTATIN 20 MG TABLET PO SCH (20:26)
[2021-06-12 07:35] LABS: Basophils # 0.1 10*3/uL (0.0-0.2); Eosinophils # 0.1 10*3/uL (0.0-0.87); Eosinophils % 2.2 % (0.00-10.9); Hemoglobin 8.2 GM/DL (14.0-18.0); Immature Granulocytes % 1.9 %; Immature Granulocytes Absolute 0.12 #; Lymphocytes # 1.1 10*3/uL (1.4-4.0); Lymphocytes % 17.6 % (21.2-54.2); Mean Corpuscular HGB Conc 30.4 GM/DL (32-36); Mean Corpuscular Volume 90.3 FL (87-102); Mean Platelet Volume 10.9 FL (9.6-12.0); Monocytes % 14.4 % (1.7-12.7); Neutrophils % 62.9 % (38.7-73.9); Platelet Count 228 T/CUMM (130-400); Red Blood Count 2.99 MC/CUMM (3.8-5.5); Red Cell Distribution Width 17.3 % (9.3-17.3); White Blood Count 6.3 T/CUMM (4-12)
[2021-06-12 07:53] LABS: Calcium 9.5 MG/DL (8.5-10.1); Osmolality,Calculated 276.1 MOS/KG (273-304); Potassium 5.4 MMOL/L (3.5-5.1)
[2021-06-12] MEDS: ASPIRIN EC 81 MG TABLET PO SCH (09:09)
[2021-06-12] MEDS: SEVELAMER CARBONATE 800 MG TABLET PO SCH ×3 (09:09→17:27)
[2021-06-12] MEDS: HEPARIN 5,000 UNIT/1 ML VIAL SUBCUT SCH ×2 (09:09→21:02)
[2021-06-12] MEDS: PANTOPRAZOLE 40 MG TABLET PO SCH (09:09)
[2021-06-12] MEDS: DILTIAZEM CD 180 MG CAPSULE PO SCH (09:09)
[2021-06-12] MEDS: ROSUVASTATIN 20 MG TABLET PO SCH (21:02)
[2021-06-13 06:15] LABS: Basophils # 0.1 10*3/uL (0.0-0.2); Basophils % 0.9 % (0.0-0.8); Eosinophils # 0.2 10*3/uL (0.0-0.87); Eosinophils % 3.3 % (0.00-10.9); Hemoglobin 8.6 GM/DL (14.0-18.0); Immature Granulocytes Absolute 0.13 #; Lymphocytes # 1.3 10*3/uL (1.4-4.0); Lymphocytes % 19.8 % (21.2-54.2); Mean Corpuscular HGB Conc 30.7 GM/DL (32-36); Mean Corpuscular Volume 88.6 FL (87-102); Mean Platelet Volume 10.4 FL (9.6-12.0); Monocytes % 12.9 % (1.7-12.7); Neutrophils % 61.1 % (38.7-73.9); Platelet Count 216 T/CUMM (130-400); Red Blood Count 3.16 MC/CUMM (3.8-5.5); White Blood Count 6.4 T/CUMM (4-12)
[2021-06-13 06:48] LABS: Calcium 9.4 MG/DL (8.5-10.1); Osmolality,Calculated 276.4 MOS/KG (273-304); Potassium 5.7 MMOL/L (3.5-5.1)
[2021-06-13] MEDS: HEPARIN 5,000 UNIT/1 ML VIAL SUBCUT SCH ×2 (08:32→20:50)
[2021-06-13] MEDS: ASPIRIN EC 81 MG TABLET PO SCH (08:32)
[2021-06-13] MEDS: DILTIAZEM CD 180 MG CAPSULE PO SCH (08:33)
[2021-06-13] MEDS: PANTOPRAZOLE 40 MG TABLET PO SCH (08:33)
[2021-06-13] MEDS: SEVELAMER CARBONATE 800 MG TABLET PO SCH ×3 (08:33→17:16)
[2021-06-13] MEDS: SODIUM ZIRCONIUM CYCLOSILICATE 10 GM PACK PO SCH (10:30)
[2021-06-13] MEDS ORDERED: MOISTURIZING CREAM (EUCERIN) 106 GM JAR TOP PRN (15:39)
[2021-06-13] MEDS: ROSUVASTATIN 20 MG TABLET PO SCH (20:48)
[2021-06-14 05:49] LABS: Basophils # 0.1 10*3/uL (0.0-0.2); Basophils % 1.1 % (0.0-0.8); Eosinophils # 0.2 10*3/uL (0.0-0.87); Eosinophils % 2.7 % (0.00-10.9); Hematocrit 27.7 VOL% (42.0-52.0); Hemoglobin 8.6 GM/DL (14.0-18.0); Immature Granulocytes % 1.1 %; Immature Granulocytes Absolute 0.08 #; Lymphocytes # 1.4 10*3/uL (1.4-4.0); Lymphocytes % 18.5 % (21.2-54.2); Mean Corpuscular Volume 87.1 FL (87-102); Mean Platelet Volume 10.1 FL (9.6-12.0); Monocytes % 14.7 % (1.7-12.7); Neutrophils % 61.9 % (38.7-73.9); Platelet Count 210 T/CUMM (130-400); Red Blood Count 3.18 MC/CUMM (3.8-5.5); Red Cell Distribution Width 16.6 % (9.3-17.3); White Blood Count 7.4 T/CUMM (4-12)
[2021-06-14 06:19] LABS: Calcium 9.9 MG/DL (8.5-10.1)
[2021-06-14 06:31] LABS: Osmolality,Calculated 272.1 MOS/KG (273-304); Potassium 5.9 MMOL/L (3.5-5.1)
[2021-06-14] MEDS: SEVELAMER CARBONATE 800 MG TABLET PO SCH ×3 (09:44→17:22)
[2021-06-14] MEDS: PANTOPRAZOLE 40 MG TABLET PO SCH (12:41)
[2021-06-14] MEDS: SODIUM ZIRCONIUM CYCLOSILICATE 10 GM PACK PO SCH (12:41)
[2021-06-14] MEDS: ASPIRIN EC 81 MG TABLET PO SCH (12:41)
[2021-06-14] MEDS: DILTIAZEM CD 180 MG CAPSULE PO SCH (12:41)
[2021-06-14] MEDS: HEPARIN 5,000 UNIT/1 ML VIAL SUBCUT SCH ×2 (12:48→20:17)
[2021-06-14] MEDS: ROSUVASTATIN 20 MG TABLET PO SCH (20:16)
[2021-06-15] MEDS: HEPARIN 5,000 UNIT/1 ML VIAL SUBCUT SCH ×2 (09:02→22:10)
[2021-06-15] MEDS: ASPIRIN EC 81 MG TABLET PO SCH (09:02)
[2021-06-15] MEDS: SODIUM ZIRCONIUM CYCLOSILICATE 10 GM PACK PO SCH ×2 (09:02→22:09)
[2021-06-15] MEDS: PANTOPRAZOLE 40 MG TABLET PO SCH (09:02)
[2021-06-15] MEDS: SEVELAMER CARBONATE 800 MG TABLET PO SCH ×3 (09:02→16:30)
[2021-06-15] MEDS: DILTIAZEM CD 180 MG CAPSULE PO SCH (09:02)
[2021-06-15 10:03] LABS: Basophils # 0.1 10*3/uL (0.0-0.2); Basophils % 0.7 % (0.0-0.8); Eosinophils # 0.1 10*3/uL (0.0-0.87); Eosinophils % 1.6 % (0.00-10.9); Hematocrit 29.6 VOL% (42.0-52.0); Immature Granulocytes % 0.6 %; Immature Granulocytes Absolute 0.04 #; Lymphocytes # 0.8 10*3/uL (1.4-4.0); Lymphocytes % 11.6 % (21.2-54.2); Mean Corpuscular HGB Conc 30.4 GM/DL (32-36); Mean Corpuscular Volume 88.4 FL (87-102); Mean Platelet Volume 10.5 FL (9.6-12.0); Monocytes % 11.3 % (1.7-12.7); Neutrophils % 74.2 % (38.7-73.9); Platelet Count 208 T/CUMM (130-400); Red Blood Count 3.35 MC/CUMM (3.8-5.5); Red Cell Distribution Width 16.7 % (9.3-17.3); White Blood Count 7.1 T/CUMM (4-12)
[2021-06-15 10:25] LABS: Alanine Aminotransferase < 9 U/L (16-61); Albumin 3.2 G/DL (3.4-5.0); Alkaline Phosphatase 49 U/L (45-117); Aspartate Amino Transferase 10 U/L (0-37); Blood Urea Nitrogen 51 MG/DL (7-18); Calcium 9.7 MG/DL (8.5-10.1); Carbon Dioxide 28 MMOL/L (21-32); Estimated Glom Filtration Rate 7 ML/MIN; Glucose 108 MG/DL (74-106); Osmolality,Calculated 280.4 MOS/KG (273-304); Potassium 5.4 MMOL/L (3.5-5.1); Sodium 133 MMOL/L (136-145); Total Protein 7.8 G/DL (6.4-8.2)
[2021-06-15] MEDS ORDERED: ACETAMINOPHEN 325 MG TABLET PO PRN (14:40)
[2021-06-15] MEDS: ROSUVASTATIN 20 MG TABLET PO SCH (22:09)
[2021-06-16 05:45] LABS: Basophils # 0.1 10*3/uL (0.0-0.2); Basophils % 0.9 % (0.0-0.8); Eosinophils # 0.2 10*3/uL (0.0-0.87); Eosinophils % 2.6 % (0.00-10.9); Hematocrit 29.5 VOL% (42.0-52.0); Immature Granulocytes % 1.1 %; Immature Granulocytes Absolute 0.09 #; Lymphocytes # 1.8 10*3/uL (1.4-4.0); Mean Corpuscular HGB Conc 30.5 GM/DL (32-36); Mean Corpuscular Volume 87.5 FL (87-102); Mean Platelet Volume 10.8 FL (9.6-12.0); Neutrophils % 59.4 % (38.7-73.9); Platelet Count 231 T/CUMM (130-400); Red Blood Count 3.37 MC/CUMM (3.8-5.5); Red Cell Distribution Width 16.5 % (9.3-17.3)
[2021-06-16 06:08] LABS: Albumin 3.1 G/DL (3.4-5.0); Bilirubin,Total 0.5 MG/DL (0.20-1.00); Calcium 9.1 MG/DL (8.5-10.1); Osmolality,Calculated 279.7 MOS/KG (273-304); Potassium 5.4 MMOL/L (3.5-5.1); Total Protein 7.8 G/DL (6.4-8.2)
[2021-06-16] MEDS: SEVELAMER CARBONATE 800 MG TABLET PO SCH ×3 (09:47→17:21)
[2021-06-16] MEDS: SODIUM ZIRCONIUM CYCLOSILICATE 10 GM PACK PO SCH ×2 (09:47→14:40)
[2021-06-16] MEDS: HEPARIN 5,000 UNIT/1 ML VIAL SUBCUT SCH ×2 (14:40→22:09)
[2021-06-16] MEDS: PANTOPRAZOLE 40 MG TABLET PO SCH (14:40)
[2021-06-16] MEDS: DILTIAZEM CD 180 MG CAPSULE PO SCH (14:40)
[2021-06-16] MEDS: ASPIRIN EC 81 MG TABLET PO SCH (14:40)
[2021-06-16] MEDS: ROSUVASTATIN 20 MG TABLET PO SCH (22:09)
[2021-06-17 06:29] LABS: Basophils # 0.1 10*3/uL (0.0-0.2); Eosinophils # 0.2 10*3/uL (0.0-0.87); Hematocrit 27.2 VOL% (42.0-52.0); Hemoglobin 8.4 GM/DL (14.0-18.0); Immature Granulocytes % 1.1 %; Immature Granulocytes Absolute 0.08 #; Lymphocytes % 14.8 % (21.2-54.2); Mean Corpuscular HGB Conc 30.9 GM/DL (32-36); Mean Corpuscular Volume 87.5 FL (87-102); Mean Platelet Volume 10.3 FL (9.6-12.0); Monocytes % 15.8 % (1.7-12.7); Neutrophils % 64.3 % (38.7-73.9); Platelet Count 200 T/CUMM (130-400); Red Blood Count 3.11 MC/CUMM (3.8-5.5); Red Cell Distribution Width 16.6 % (9.3-17.3)
[2021-06-17 06:45] LABS: Alanine Aminotransferase < 9 U/L (16-61); Albumin 2.9 G/DL (3.4-5.0); Alkaline Phosphatase 50 U/L (45-117); Aspartate Amino Transferase 9 U/L (0-37); Blood Urea Nitrogen 53 MG/DL (7-18); Calcium 9.4 MG/DL (8.5-10.1); Carbon Dioxide 26 MMOL/L (21-32); Estimated Glom Filtration Rate 8 ML/MIN; Glucose 80 MG/DL (74-106); Osmolality,Calculated 282.1 MOS/KG (273-304); Potassium 4.8 MMOL/L (3.5-5.1); Sodium 135 MMOL/L (136-145); Total Protein 7.1 G/DL (6.4-8.2)
[2021-06-17 06:53] LABS: Eosinophils 1 % (0-10); Hypochromia 1+; Lymphocytes 8 % (20-55); Microcytosis 1+; Platelet Estimate Adequate; Segmented Neutrophils 70 % (50-85); Total Cells Counted 100
[2021-06-17] MEDS: ASPIRIN EC 81 MG TABLET PO SCH (09:11)
[2021-06-17] MEDS: DILTIAZEM CD 180 MG CAPSULE PO SCH (09:12)
[2021-06-17] MEDS: PANTOPRAZOLE 40 MG TABLET PO SCH (09:12)
[2021-06-17] MEDS: SEVELAMER CARBONATE 800 MG TABLET PO SCH ×2 (09:12→12:45)
[2021-06-17] MEDS: HEPARIN 5,000 UNIT/1 ML VIAL SUBCUT SCH (09:13)
[2021-06-17 12:35] VITALS: BP 138/72
== END 2021-06-17 16:46 | disposition home or self-care (01) | DRG 640 ==
LOC: N.EDINP 11:50 → N.ED 11:50 → SUATTDRO 13:45 → N.EDINP 18:52 → N.3E 18:59 → SUATTDRO 06-11 10:28 → N.5E 06-11 14:52
PROVIDERS: ADMIT Internal Medicine; ATTEND Internal Medicine

== ENCOUNTER 2021-07-31 19:00 | Observation (INO) ==
[~2021-07-31 19:00] MED LIST changes: +ALBUTEROL 2.5 MG/3 ML NEB RESP TX PRN; -GLYCOPYRROLATE 0.4 MG/2 ML VIAL ONE; -LIDOCAINE 2% 5 ML VIAL ONE; -PHENYLEPHRINE 1 MG/10 ML SYRINGE IV ONE; -PROPOFOL 200 MG/20 ML VIAL IV ONE; -ROCURONIUM 100 MG/10 ML VIAL IV ONE; -SEVOFLURANE 1 UNIT/15 MINUTE INH ONE
[2021-07-31 19:40] LABS: Basophils # 0.1 10*3/uL (0.0-0.2); Basophils % 1.2 % (0.0-0.8); Eosinophils # 0.1 10*3/uL (0.0-0.87); Eosinophils % 1.6 % (0.00-10.9); Hematocrit 41.5 VOL% (42.0-52.0); Hemoglobin 12.5 GM/DL (14.0-18.0); Immature Granulocytes % 0.5 %; Immature Granulocytes Absolute 0.04 #; Lymphocytes # 1.3 10*3/uL (1.4-4.0); Lymphocytes % 14.7 % (21.2-54.2); Mean Corpuscular HGB Conc 30.1 GM/DL (32-36); Mean Corpuscular Volume 86.3 FL (87-102); Monocytes % 11.2 % (1.7-12.7); Neutrophils % 70.8 % (38.7-73.9); Platelet Count 250 T/CUMM (130-400); Red Blood Count 4.81 MC/CUMM (3.8-5.5); Red Cell Distribution Width 19.9 % (9.3-17.3); White Blood Count 8.8 T/CUMM (4-12)
[2021-07-31 19:50] LABS: INR 1.1; PT Patient Result 11.6 SECS (10.5-12.0); Partial Thromboplastin Time 27.6 SECS (23.8-32.1)
[2021-07-31 19:55] LABS: Albumin 3.4 G/DL (3.4-5.0); Bilirubin,Total 0.7 MG/DL (0.20-1.00); Calcium 10.3 MG/DL (8.5-10.1); Osmolality,Calculated 284.7 MOS/KG (273-304); Potassium 4.1 MMOL/L (3.5-5.1); Total Protein 7.8 G/DL (6.4-8.2)
[2021-07-31] MEDS ORDERED: hydrALAZINE 20 MG/1 ML VIAL IV STA ×2 (20:07→21:53)
[2021-07-31] MEDS ORDERED: cloNIDine 0.1 MG TABLET PO STA (20:44)
[2021-07-31] MEDS ORDERED: FUROSEMIDE 40 MG/4 ML VIAL IV STA (21:28)
[2021-07-31 21:52] LABS: Arterial Base Excess iSTAT 6 MMOL/L (-2.5-2.5); Arterial Bicarbonate iSTAT 30.4 MMOL/L (20-26); Arterial O2 Saturation iSTAT 96 % (95-100); Arterial PCO2 iSTAT 43 MM HG (35-48); Arterial PO2 iSTAT 76 MM HG (80-95); Arterial Total CO2 iSTAT 32 MMO/L (23-27); Arterial pH iSTAT 7.462 (7.35-7.45)
[2021-07-31] MEDS ORDERED: GLUCAGON 1 MG VIAL IM PRN (21:53)
[2021-07-31] MEDS ORDERED: ONDANSETRON 4 MG/2 ML VIAL IV PRN (21:53)
[2021-07-31] MEDS ORDERED: ACETAMINOPHEN 325 MG TABLET PO PRN (21:53)
[2021-07-31] MEDS ORDERED: DEXTROSE 10% 250 ML BAG IV PRN (22:04)
[2021-07-31] MEDS ORDERED: cloNIDine 0.1 MG TABLET PO PRN (22:25)
[2021-07-31] MEDS: APIXABAN 2.5 MG TABLET PO SCH (22:50)
[2021-08-01 05:05] LABS: Basophils # 0.1 10*3/uL (0.0-0.2); Eosinophils # 0.1 10*3/uL (0.0-0.87); Eosinophils % 1.6 % (0.00-10.9); Hematocrit 37.4 VOL% (42.0-52.0); Hemoglobin 11.3 GM/DL (14.0-18.0); Immature Granulocytes % 0.7 %; Immature Granulocytes Absolute 0.06 #; Lymphocytes # 0.9 10*3/uL (1.4-4.0); Lymphocytes % 10.7 % (21.2-54.2); Mean Corpuscular HGB Conc 30.2 GM/DL (32-36); Mean Platelet Volume 10.3 FL (9.6-12.0); Monocytes # 0.9 10*3/uL (0.11-0.8); Monocytes % 11.6 % (1.7-12.7); Neutrophils % 74.4 % (38.7-73.9); Platelet Count 187 T/CUMM (130-400); Red Blood Count 4.35 MC/CUMM (3.8-5.5); Red Cell Distribution Width 19.5 % (9.3-17.3)
[2021-08-01 05:31] LABS: Bilirubin,Total 0.7 MG/DL (0.20-1.00); Osmolality,Calculated 284.8 MOS/KG (273-304); Total Protein 7.4 G/DL (6.4-8.2)
[2021-08-01] MEDS: INSULIN LISPRO 100 UNIT/ML SUBCUT SCH ×4 (07:56→22:33)
[2021-08-01] MEDS ORDERED: PANTOPRAZOLE 40 MG TABLET PO SCH (09:00)
[2021-08-01] MEDS: ASPIRIN EC 81 MG TABLET PO SCH (09:22)
[2021-08-01] MEDS: APIXABAN 2.5 MG TABLET PO SCH ×2 (09:24→21:58)
[2021-08-01] MEDS: DILTIAZEM CD 180 MG CAPSULE PO SCH (09:24)
[2021-08-01] MEDS: PANTOPRAZOLE 40 MG TABLET PO SCH ×2 (09:25→21:58)
[2021-08-01] MEDS: SEVELAMER CARBONATE 800 MG TABLET PO SCH ×3 (09:27→21:58)
[2021-08-01] MEDS: ALBUTEROL 1.25 MG/3 ML NEB RESP TX SCH ×2 (14:30→19:05)
[2021-08-01] MEDS ORDERED: HEPARIN 10,000 UNIT/10 ML VIAL IV SCH (15:45)
[2021-08-02] MEDS: ALBUTEROL 1.25 MG/3 ML NEB RESP TX SCH ×4 (01:40→19:05)
[2021-08-02 04:12] LABS: Basophils # 0.1 10*3/uL (0.0-0.2); Basophils % 0.9 % (0.0-0.8); Eosinophils # 0.2 10*3/uL (0.0-0.87); Eosinophils % 3.3 % (0.00-10.9); Hematocrit 36.6 VOL% (42.0-52.0); Hemoglobin 11.1 GM/DL (14.0-18.0); Immature Granulocytes % 0.9 %; Immature Granulocytes Absolute 0.06 #; Lymphocytes # 1.2 10*3/uL (1.4-4.0); Mean Corpuscular HGB Conc 30.3 GM/DL (32-36); Mean Corpuscular Volume 85.9 FL (87-102); Mean Platelet Volume 10.2 FL (9.6-12.0); Monocytes # 1.1 10*3/uL (0.11-0.8); Monocytes % 15.8 % (1.7-12.7); NRBC # 0.02 10*3/uL; Neutrophils % 62.1 % (38.7-73.9); Platelet Count 160 T/CUMM (130-400); Red Blood Count 4.26 MC/CUMM (3.8-5.5); Red Cell Distribution Width 19.6 % (9.3-17.3); White Blood Count 6.9 T/CUMM (4-12)
[2021-08-02 04:31] LABS: Calcium 9.6 MG/DL (8.5-10.1); Osmolality,Calculated 280.1 MOS/KG (273-304); Potassium 3.8 MMOL/L (3.5-5.1)
[2021-08-02 04:42] LABS: Eosinophils 5 % (0-10); Lymphocytes 16 % (20-55); Platelet Estimate Adequate; Total Cells Counted 100
[2021-08-02] MEDS: INSULIN LISPRO 100 UNIT/ML SUBCUT SCH ×4 (08:05→21:45)
[2021-08-02] MEDS: SEVELAMER CARBONATE 800 MG TABLET PO SCH ×3 (14:52→21:44)
[2021-08-02] MEDS: ASPIRIN EC 81 MG TABLET PO SCH (15:20)
[2021-08-02] MEDS: PANTOPRAZOLE 40 MG TABLET PO SCH ×2 (15:20→21:46)
[2021-08-02] MEDS: DILTIAZEM CD 180 MG CAPSULE PO SCH (15:20)
[2021-08-02] MEDS: APIXABAN 2.5 MG TABLET PO SCH ×2 (15:21→21:44)
[2021-08-03] MEDS: ALBUTEROL 1.25 MG/3 ML NEB RESP TX SCH ×3 (01:06→13:17)
[2021-08-03] MEDS: INSULIN LISPRO 100 UNIT/ML SUBCUT SCH ×2 (08:58→12:56)
[2021-08-03] MEDS: ASPIRIN EC 81 MG TABLET PO SCH (09:25)
[2021-08-03] MEDS: SEVELAMER CARBONATE 800 MG TABLET PO SCH ×2 (09:25→15:00)
[2021-08-03] MEDS: PANTOPRAZOLE 40 MG TABLET PO SCH (09:26)
[2021-08-03] MEDS: APIXABAN 2.5 MG TABLET PO SCH (09:26)
[2021-08-03] MEDS: DILTIAZEM CD 180 MG CAPSULE PO SCH (09:26)
[2021-08-03] MEDS: POLYVINYL ALCOHOL 1.4% OPH SOLN 15 ML BOTTLE BOTH EYES SCH ×2 (12:57→14:20)
[2021-08-03 16:24] VITALS: BP 127/67
== END 2021-08-03 16:51 | disposition home health service (06) ==
LOC: EDUNIT# → SUATTDRO → EDBD → N.ED 19:00 → SUATTDRO 21:53 → N.EDINP 21:53 → INTOOBSV 21:53 → N.TELEN 23:48
PROVIDERS: ADMIT Internal Medicine; ATTEND Internal Medicine

== ENCOUNTER 2022-01-14 18:59 | Inpatient (IN) ==
[2022-01-14 19:27] LABS: Basophils # 0.1 10*3/uL (0.0-0.2); Basophils % 0.9 % (0.0-0.8); Eosinophils # 0.1 10*3/uL (0.0-0.87); Eosinophils % 0.8 % (0.00-10.9); Hematocrit 21.3 VOL% (42.0-52.0); Immature Granulocytes Absolute 0.19 #; Lymphocytes % 20.6 % (21.2-54.2); Mean Corpuscular HGB Conc 29.6 GM/DL (32-36); Mean Corpuscular Volume 95.5 FL (87-102); Mean Platelet Volume 10.3 FL (9.6-12.0); Monocytes # 1.3 10*3/uL (0.11-0.8); Monocytes % 12.9 % (1.7-12.7); Neutrophils % 62.8 % (38.7-73.9); Platelet Count 235 T/CUMM (130-400); Red Blood Count 2.23 MC/CUMM (3.8-5.5); White Blood Count 9.7 T/CUMM (4-12)
[2022-01-14 19:30] LABS: Hemoglobin 6.3 GM/DL (14.0-18.0)
[2022-01-14 19:36] LABS: PT Patient Result 10.8 SECS (10.1-12.1); Partial Thromboplastin Time 25.1 SECS (23.7-32.9)
[2022-01-14 19:50] LABS: Albumin 3.1 G/DL (3.4-5.0); Bilirubin,Total 0.4 MG/DL (0.20-1.00); Calcium 9.1 MG/DL (8.5-10.1); Osmolality,Calculated 296.4 MOS/KG (273-304); Potassium 4.9 MMOL/L (3.5-5.1); Total Protein 6.8 G/DL (6.4-8.2)
[2022-01-14] MEDS ORDERED: SODIUM CHLORIDE 0.9% 1,000 ML IV PRN (20:16)
[2022-01-14] MEDS ORDERED: MORPHINE 2 MG/1 ML SYRINGE IV PRN (21:42)
[2022-01-14] MEDS ORDERED: ONDANSETRON 4 MG/2 ML VIAL IV PRN (21:42)
[2022-01-14] MEDS ORDERED: hydrALAZINE 20 MG/1 ML VIAL IV PRN (21:42)
[2022-01-15 04:17] LABS: Basophils # 0.1 10*3/uL (0.0-0.2); Eosinophils # 0.2 10*3/uL (0.0-0.87); Eosinophils % 2.1 % (0.00-10.9); Hematocrit 21.2 VOL% (42.0-52.0); Immature Granulocytes % 1.7 %; Immature Granulocytes Absolute 0.16 #; Lymphocytes % 21.7 % (21.2-54.2); Mean Corpuscular HGB Conc 29.7 GM/DL (32-36); Mean Corpuscular Volume 92.6 FL (87-102); Mean Platelet Volume 10.7 FL (9.6-12.0); Monocytes # 1.1 10*3/uL (0.11-0.8); Monocytes % 12.3 % (1.7-12.7); Neutrophils % 61.2 % (38.7-73.9); Platelet Count 204 T/CUMM (130-400); Red Blood Count 2.29 MC/CUMM (3.8-5.5); Red Cell Distribution Width 17.9 % (9.3-17.3); White Blood Count 9.2 T/CUMM (4-12)
[2022-01-15 04:21] LABS: Hemoglobin 6.3 GM/DL (14.0-18.0)
[2022-01-15 04:34] LABS: Hematocrit 21.4 VOL% (42.0-52.0)
[2022-01-15 04:35] LABS: Albumin 2.7 G/DL (3.4-5.0); Bilirubin,Total 0.4 MG/DL (0.20-1.00); Calcium 8.7 MG/DL (8.5-10.1); Osmolality,Calculated 291.7 MOS/KG (273-304); Potassium 5.1 MMOL/L (3.5-5.1); Total Protein 6.4 G/DL (6.4-8.2)
[2022-01-15 04:37] LABS: Hemoglobin 6.4 GM/DL (14.0-18.0)
[2022-01-15] MEDS ORDERED: FUROSEMIDE 40 MG/4 ML VIAL IV STA (04:39)
[2022-01-15] MEDS ORDERED: SODIUM CHLORIDE 0.9% 1,000 ML IV PRN (04:58)
[2022-01-15] MEDS ORDERED: ALBUTEROL 2.5 MG/3 ML NEB RESP TX PRN (06:54)
[2022-01-15] MEDS ORDERED: DEXTROSE 10% 250 ML BAG IV PRN (08:18)
[2022-01-15] MEDS ORDERED: GLUCAGON 1 MG VIAL IM PRN (08:18)
[2022-01-15] MEDS: SEVELAMER CARBONATE 800 MG TABLET PO SCH ×3 (08:32→17:15)
[2022-01-15] MEDS: DILTIAZEM CD 180 MG CAPSULE PO SCH (08:57)
[2022-01-15] MEDS: PANTOPRAZOLE 40 MG TABLET PO SCH (08:57)
[2022-01-15 11:31] LABS: Hematocrit 23.2 VOL% (42.0-52.0); Hemoglobin 7.1 GM/DL (14.0-18.0)
[2022-01-16] MEDS ORDERED: EPOETIN ALFA-EPBX 4,000 UNIT/ML VIAL IV PRN ×2 (08:46→16:16)
[2022-01-16] MEDS: SEVELAMER CARBONATE 800 MG TABLET PO SCH ×3 (09:16→16:29)
[2022-01-16] MEDS: DILTIAZEM CD 180 MG CAPSULE PO SCH (09:16)
[2022-01-16] MEDS: PANTOPRAZOLE 40 MG TABLET PO SCH (09:17)
[2022-01-16] MEDS ORDERED: HEPARIN 10,000 UNIT/10 ML VIAL IV SCH ×2 (11:15→16:15)
[2022-01-16 15:08] LABS: Hematocrit 21.8 VOL% (42.0-52.0); Hemoglobin 6.8 GM/DL (14.0-18.0)
[2022-01-16] MEDS ORDERED: GLUCAGON 1 MG VIAL IM PRN (16:16)
[2022-01-16] MEDS ORDERED: MORPHINE 2 MG/1 ML SYRINGE IV PRN (16:17)
[2022-01-16] MEDS ORDERED: ALBUTEROL 2.5 MG/3 ML NEB RESP TX PRN (16:17)
[2022-01-16] MEDS ORDERED: hydrALAZINE 20 MG/1 ML VIAL IV PRN (16:17)
[2022-01-16] MEDS ORDERED: DEXTROSE 10% 250 ML BAG IV PRN (16:17)
[2022-01-16] MEDS ORDERED: ONDANSETRON 4 MG/2 ML VIAL IV PRN (16:17)
[2022-01-17 00:44] LABS: Hematocrit 19.2 VOL% (42.0-52.0)
[2022-01-17 00:46] LABS: Hemoglobin 5.9 GM/DL (14.0-18.0)
[2022-01-17] MEDS ORDERED: SODIUM CHLORIDE 0.9% 1,000 ML IV PRN (01:08)
[2022-01-17] MEDS ORDERED: SODIUM CHLORIDE 0.9% 1,000 ML IV SCH (08:00)
[2022-01-17] MEDS: DILTIAZEM CD 180 MG CAPSULE PO SCH (08:11)
[2022-01-17] MEDS: PANTOPRAZOLE 40 MG TABLET PO SCH (08:11)
[2022-01-17] MEDS: SEVELAMER CARBONATE 800 MG TABLET PO SCH ×3 (08:11→16:31)
[2022-01-17 08:27] LABS: Basophils # 0.1 10*3/uL (0.0-0.2); Basophils % 0.8 % (0.0-0.8); Eosinophils # 0.2 10*3/uL (0.0-0.87); Eosinophils % 1.9 % (0.00-10.9); Hematocrit 25.2 VOL% (42.0-52.0); Hemoglobin 8.1 GM/DL (14.0-18.0); Immature Granulocytes % 2.9 %; Immature Granulocytes Absolute 0.28 #; Lymphocytes # 1.7 10*3/uL (1.4-4.0); Mean Corpuscular HGB Conc 32.1 GM/DL (32-36); Mean Corpuscular Volume 89.4 FL (87-102); Monocytes # 1.2 10*3/uL (0.11-0.8); Monocytes % 11.8 % (1.7-12.7); Neutrophils % 65.6 % (38.7-73.9); Platelet Count 193 T/CUMM (130-400); Red Blood Count 2.82 MC/CUMM (3.8-5.5); Red Cell Distribution Width 16.8 % (9.3-17.3); White Blood Count 9.8 T/CUMM (4-12)
[2022-01-17 08:54] LABS: Osmolality,Calculated 283.7 MOS/KG (273-304)
[2022-01-17 09:02] LABS: Potassium 6.1 MMOL/L (3.5-5.1)
[2022-01-17] MEDS ORDERED: SODIUM POLYSTYRENE SULFATE 15 GM/60 ML BOTTLE PO STA (10:21)
[2022-01-17] MEDS: SODIUM ZIRCONIUM CYCLOSILICATE 10 GM PACK PO SCH ×2 (16:30→22:09)
[2022-01-18 05:35] LABS: Basophils # 0.1 10*3/uL (0.0-0.2); Basophils % 0.8 % (0.0-0.8); Eosinophils # 0.2 10*3/uL (0.0-0.87); Eosinophils % 1.8 % (0.00-10.9); Hematocrit 24.7 VOL% (42.0-52.0); Hemoglobin 7.8 GM/DL (14.0-18.0); Immature Granulocytes % 4.2 %; Immature Granulocytes Absolute 0.46 #; Mean Corpuscular HGB Conc 31.6 GM/DL (32-36); Mean Corpuscular Volume 91.8 FL (87-102); Mean Platelet Volume 10.8 FL (9.6-12.0); Monocytes # 1.3 10*3/uL (0.11-0.8); Monocytes % 12.3 % (1.7-12.7); Neutrophils % 62.9 % (38.7-73.9); Platelet Count 201 T/CUMM (130-400); Red Blood Count 2.69 MC/CUMM (3.8-5.5); Red Cell Distribution Width 17.1 % (9.3-17.3); White Blood Count 10.9 T/CUMM (4-12)
[2022-01-18 05:58] LABS: Calcium 9.2 MG/DL (8.5-10.1); Osmolality,Calculated 293.4 MOS/KG (273-304); Potassium 5.7 MMOL/L (3.5-5.1)
[2022-01-18] MEDS: SODIUM CHLORIDE 0.9% 1,000 ML IV SCH (06:09)
[2022-01-18] MEDS ORDERED: HEPARIN 5,000 UNIT/1 ML VIAL ONE (08:10)
[2022-01-18] MEDS ORDERED: BUPIVACAINE MPF 0.25% 10 ML VIAL ONE (08:10)
[2022-01-18] MEDS ORDERED: LIDOCAINE MPF 1% /EPI 30 ML VIAL ONE (08:10)
[2022-01-18] MEDS ORDERED: MIDAZOLAM 2 MG/2 ML VIAL ONE (08:31)
[2022-01-18] MEDS ORDERED: fentaNYL 100 MCG/2 ML VIAL ONE (08:31)
[2022-01-18] MEDS ORDERED: LIDOCAINE 2% 5 ML VIAL ONE (08:33)
[2022-01-18] MEDS ORDERED: propofoL 200 MG/20 ML VIAL IV ONE (08:33)
[2022-01-18] MEDS ORDERED: DEXTROSE 50% 25 GM/50 ML SYRINGE IV ONE (08:38)
[2022-01-18] MEDS ORDERED: SODIUM CHLORIDE 0.9% 250 ML IV SCH (09:00)
[2022-01-18] MEDS ORDERED: CLINDAMYCIN INJ 900 MG/50 ML PREMIX IV ONE (09:01)
[2022-01-18] MEDS: SEVELAMER CARBONATE 800 MG TABLET PO SCH ×3 (10:07→16:28)
[2022-01-18] MEDS: SODIUM ZIRCONIUM CYCLOSILICATE 10 GM PACK PO SCH ×3 (10:08→20:46)
[2022-01-18] MEDS: DILTIAZEM CD 180 MG CAPSULE PO SCH (10:08)
[2022-01-18] MEDS: PANTOPRAZOLE 40 MG TABLET PO SCH (10:08)
[2022-01-19] MEDS: SODIUM CHLORIDE 0.9% 1,000 ML IV SCH (06:09)
[2022-01-19 06:27] LABS: Basophils # 0.1 10*3/uL (0.0-0.2); Eosinophils # 0.2 10*3/uL (0.0-0.87); Eosinophils % 1.5 % (0.00-10.9); Hematocrit 25.2 VOL% (42.0-52.0); Hemoglobin 7.9 GM/DL (14.0-18.0); Immature Granulocytes % 5.2 %; Immature Granulocytes Absolute 0.68 #; Lymphocytes # 1.7 10*3/uL (1.4-4.0); Lymphocytes % 12.8 % (21.2-54.2); Mean Corpuscular HGB Conc 31.3 GM/DL (32-36); Mean Platelet Volume 10.7 FL (9.6-12.0); Monocytes # 1.8 10*3/uL (0.11-0.8); Neutrophils % 65.5 % (38.7-73.9); Platelet Count 216 T/CUMM (130-400); Red Blood Count 2.74 MC/CUMM (3.8-5.5); Red Cell Distribution Width 17.8 % (9.3-17.3)
[2022-01-19 06:41] LABS: Calcium 9.3 MG/DL (8.5-10.1); Osmolality,Calculated 288.2 MOS/KG (273-304); Potassium 4.8 MMOL/L (3.5-5.1)
[2022-01-19] MEDS: PANTOPRAZOLE 40 MG TABLET PO SCH (08:23)
[2022-01-19] MEDS: SODIUM ZIRCONIUM CYCLOSILICATE 10 GM PACK PO SCH (08:23)
[2022-01-19] MEDS: SEVELAMER CARBONATE 800 MG TABLET PO SCH ×3 (08:23→16:36)
[2022-01-19] MEDS: DILTIAZEM CD 180 MG CAPSULE PO SCH (08:23)
[2022-01-19] MEDS ORDERED: LIDOCAINE 2% 5 ML VIAL ONE (10:10)
[2022-01-19] MEDS ORDERED: ETOMIDATE 20 MG/10 ML VIAL IV ONE (10:10)
[2022-01-19] MEDS ORDERED: propofoL 200 MG/20 ML VIAL IV ONE (10:11)
[2022-01-20 05:54] LABS: Basophils # 0.1 10*3/uL (0.0-0.2); Basophils % 0.9 % (0.0-0.8); Eosinophils # 0.2 10*3/uL (0.0-0.87); Hematocrit 22.5 VOL% (42.0-52.0); Hemoglobin 7.1 GM/DL (14.0-18.0); Immature Granulocytes % 4.4 %; Immature Granulocytes Absolute 0.43 #; Lymphocytes # 1.6 10*3/uL (1.4-4.0); Lymphocytes % 16.6 % (21.2-54.2); Mean Corpuscular HGB Conc 31.6 GM/DL (32-36); Mean Corpuscular Volume 92.2 FL (87-102); Mean Platelet Volume 10.7 FL (9.6-12.0); Monocytes # 1.6 10*3/uL (0.11-0.8); Monocytes % 15.9 % (1.7-12.7); Neutrophils % 60.2 % (38.7-73.9); Platelet Count 187 T/CUMM (130-400); Red Blood Count 2.44 MC/CUMM (3.8-5.5); Red Cell Distribution Width 17.3 % (9.3-17.3); White Blood Count 9.9 T/CUMM (4-12)
[2022-01-20 06:19] LABS: Calcium 9.2 MG/DL (8.5-10.1); Osmolality,Calculated 287.5 MOS/KG (273-304); Potassium 4.9 MMOL/L (3.5-5.1)
[2022-01-20 06:38] LABS: Band Neutrophils 1 % (0-10); Eosinophils 2 % (0-10); Lymphocytes 20 % (20-55); Total Cells Counted 100
[2022-01-20 06:39] LABS: Anisocytosis 1+; Platelet Estimate Normal
[2022-01-20] MEDS: SEVELAMER CARBONATE 800 MG TABLET PO SCH ×3 (08:16→17:14)
[2022-01-20] MEDS: PANTOPRAZOLE 40 MG TABLET PO SCH (08:16)
[2022-01-20] MEDS: DILTIAZEM CD 180 MG CAPSULE PO SCH (08:17)
[2022-01-20] MEDS ORDERED: BRIMONIDINE 0.1% OPH SOLN 5 ML BOTTLE RIGHT EYE PRN (08:51)
[2022-01-20] MEDS ORDERED: SODIUM CHLORIDE 0.9% 1,000 ML IV PRN (08:56)
[2022-01-20] MEDS: SODIUM CHLORIDE 0.9% 1,000 ML IV SCH (14:34)
[2022-01-21 08:53] LABS: Basophils # 0.1 10*3/uL (0.0-0.2); Eosinophils # 0.2 10*3/uL (0.0-0.87); Eosinophils % 2.3 % (0.00-10.9); Hematocrit 27.7 VOL% (42.0-52.0); Immature Granulocytes % 3.1 %; Immature Granulocytes Absolute 0.27 #; Lymphocytes # 1.4 10*3/uL (1.4-4.0); Lymphocytes % 15.7 % (21.2-54.2); Mean Corpuscular Volume 94.2 FL (87-102); Mean Platelet Volume 10.4 FL (9.6-12.0); Monocytes # 1.2 10*3/uL (0.11-0.8); Monocytes % 13.4 % (1.7-12.7); Neutrophils % 64.5 % (38.7-73.9); Platelet Count 190 T/CUMM (130-400); Red Cell Distribution Width 17.7 % (9.3-17.3); White Blood Count 8.7 T/CUMM (4-12)
[2022-01-21 08:57] LABS: Red Blood Count 2.94 MC/CUMM (3.8-5.5)
[2022-01-21 08:58] LABS: Hemoglobin 8.6 GM/DL (14.0-18.0)
[2022-01-21 09:08] LABS: Calcium 8.8 MG/DL (8.5-10.1); Osmolality,Calculated 286.8 MOS/KG (273-304); Potassium 4.5 MMOL/L (3.5-5.1)
[2022-01-21] MEDS: SEVELAMER CARBONATE 800 MG TABLET PO SCH ×3 (10:15→17:04)
[2022-01-21] MEDS: DILTIAZEM CD 180 MG CAPSULE PO SCH (10:15)
[2022-01-21] MEDS: PANTOPRAZOLE 40 MG TABLET PO SCH (10:15)
[2022-01-21 20:38] VITALS: BP 138/62
== END 2022-01-21 20:28 | disposition home or self-care (01) | DRG 377 ==
LOC: EDBD → EDUNIT# → N.ED 18:59 → N.3W 18:59 → N.ED 18:59 → N.3E 18:59 → N.EDINP 18:59 → SUATTDRO 21:35 → OBSVTOIN 21:35 → INTOOBSV 21:35 → N.3E 01-15 00:06 → N.SDSINP 01-15 08:48 → N.3E 01-15 09:36 → N.3W 01-15 09:36 → N.ED 01-15 09:36 → UNDODEPER 01-15 09:36 → UNDODISIN 01-21 20:28
PROVIDERS: ADMIT Internal Medicine; ATTEND Internal Medicine Geriatric Medicine